=== PATIENT | female | born 2000 | race Caucasian/White ===

== ENCOUNTER 2023-01-02 08:37 | Outpatient (OUT) | payer BC, OTHER, SELFPAY ==
--- NOTE | 2023-01-02 08:46 | MR_ITS ---
[address] [address] Patient Name: DELFIN PÉREZ MRN: [id number] date: 2000 Sex: F Assigned Patient Location: MRI Current Patient Location: MRI Accession/Order Number: [id number] Exam Date: 01/02/2023 09:00 Report Date: 01/03/2023 08:19 At the request of: MARSHALL GOLD Procedure: MR pituitary wo/w con EXAM: MR pituitary wo/w con CLINICAL INDICATION: Elevated Prolactin Level R79.89 COMPARISON: None TECHNIQUE/PROTOCOL: Standard brain and pituitary pre and post contrast MRI performed. CONTRAST: 16 mL of Dotarem. FINDINGS: PITUITARY: Pituitary Gland: Normal in size. Parenchyma enhances slightly heterogenously without discrete mass. A normal pituitary bright spot is seen on the precontrast images. Infundibulum: Normal without deviation. Hypothalamus: Normal. Optic Chiasm: Normal. Mammillary Bodies: Normal. BRAIN: No restricted diffusion, extra-axial fluid collection, hydrocephalus, midline shift, or other mass effect. Intracranial flow voids are maintained. Normal midline structures. Normal marrow signal. No soft tissue abnormalities. Mild scattered paranasal sinus mucosal thickening. Mastoid air cells are well aerated. IMPRESSION: 1. Normal pituitary gland size. Pituitary parenchyma enhances slightly heterogenously without discrete mass. 2. No acute intracranial process. Electronically authenticated by: DESMOND JUDGE Date: 01/03/2023 08:19
== END 2023-01-02 08:38 ==
LOC: MRI 08:40
PROVIDERS: PCP Family Medicine; Visit Provider Obstetrics & Gynecology
DX: E22.1 Hyperprolactinemia (principal)
CPT/HCPCS: 70553; A9575

== ENCOUNTER 2023-01-30 20:24 | Outpatient (REF) | payer BC, OTHER, SELFPAY ==
[2023-02-06 21:07] LABS: Age Gdln ACOG Testing Note (.); HPV Aptima Negative (Negative); IGP, rfx Aptima HPV ASCU Note (.)
== END 2023-01-30 20:25 | disposition home or self-care (01) ==
LOC: LAB 20:24
PROVIDERS: PCP Family Medicine; Visit Provider Obstetrics & Gynecology
DX: Z12.4 Encounter for screening for malignant neoplasm of cervix (principal); Z11.51 Encounter for screening for human papillomavirus (HPV)
CPT/HCPCS: G0145

== ENCOUNTER 2024-05-21 19:48 | Outpatient (REF) | payer BC, OTHER, SELFPAY | END 2024-05-21 19:49 | disposition home or self-care (01) | LOC: LAB 19:48 | PROVIDERS: PCP Family Medicine; Visit Provider Family Medicine | DX: N94.89 Other specified conditions associated with female genital organs and menstrual cycle (principal); N90.7 Vulvar cyst | CPT/HCPCS: 87070; 87075 ==

== ENCOUNTER 2024-06-25 12:38 | Outpatient (OUT) | payer OTHER, SELFPAY | END 2024-06-25 12:39 | disposition home or self-care (01) | LOC: PST 12:38 | PROVIDERS: PCP Family Medicine; Visit Provider Obstetrics & Gynecology | DX: Z01.818 Encounter for other preprocedural examination (principal); N90.7 Vulvar cyst ==

== ENCOUNTER 2024-06-27 10:47 | Day surgery (SDC) | payer OTHER, SELFPAY ==
[2024-06-27] VITALS (10 sets, daily range): BP systolic 101–134; BP diastolic 52–80; PULSE 66–100; TEMP 36.2–36.4; O2SAT 94–100; BMI 24.0
--- NOTE | 2024-06-27 10:45 | XR_ITS ---
[address] [address] Patient Name: DELFIN PÉREZ MRN: [id number] date: 2000 Sex: F Assigned Patient Location: [facility] Current Patient Location: [facility] Accession/Order Number: [id number] Exam Date: 06/27/2024 11:00 Report Date: 06/27/2024 12:41 At the request of: MARSHALL GOLD Procedure: XR chest 1V PROCEDURE: XR chest 1V DATE: 06/27/2024 11:00 AM EST COMPARISONS: None. CLINICAL INDICATION: 23 years Female cough FINDINGS: The cardiomediastinal silhouette and pulmonary vasculature are within normal limits. The lungs are clear. There is no evidence of pleural effusion or pneumothorax. XR/XR chest 1V IMPRESSION: Chest radiograph is within normal limits. Electronically authenticated by: ARNULFO SAGASTUME Date: 06/27/2024 12:41
[2024-06-27 10:59] LABS: Basophils Percent Auto 0.6 % (0.2-2.0); Eosinophils Absolute Auto 0.1 10^3/uL (0.0-0.7); Eosinophils Percent Auto 1.8 % (0.9-7.0); Hematocrit 43.2 % (36.0-48.0); Immature Granulocytes Abs Auto 0.02 10^3/uL (0.00-0.03); Immature Granulocytes Pct Auto 0.4 % (0.0-0.5); Lymphocytes Absolute Auto 2.1 10^3/uL (1.2-3.8); Lymphocytes Percent Auto 40.3 % (20.5-60.0); Mean Corpuscular HGB Conc 34.7 g/dL (29.9-35.2); Mean Corpuscular Hemoglobin 29.8 pg (26.7-34.0); Mean Corpuscular Volume 85.9 fL (81.0-99.0); Mean Platelet Volume 8.5 fL (9.5-13.5); Monocytes Absolute Auto 0.5 10^3/uL (0.3-0.8); Monocytes Percent Auto 9.1 % (1.7-12.0); Neutrophils Absolute Auto 2.5 10^3/uL (1.4-6.5); Neutrophils Percent Auto 47.8 % (43.0-75.0); Platelet Count 239 10^3/uL (150-450); Red Blood Count 5.03 10^6/uL (4.20-5.40); Red Cell Distribution Width 11.9 % (11.0-15.0); White Blood Count 5.1 10^3/uL (4.0-11.0)
[2024-06-27 11:31] LABS: HCG Quantitative <1 mIU/mL
[2024-06-27] MEDS: LACTATED RINGER'S SOLUTION 1,000 ML 50 ML IV ×2 (12:00→14:14)
[2024-06-27] MEDS: SILVER SULFADIAZINE 1% CREAM 25 GM TUBE 1 APPLIC TOPICAL (14:53)
--- NOTE | 2024-06-27 14:53 | PM.ONB ---
Brief Operative Note Date of procedure: 06/27/24 Pre-op diagnosis general: lt labial cyst wall Post-op diagnosis: same as pre-op Procedure: pt was taken back to operating room, placed in dorsal lithotomy position, lt labial cyst was identified, a 3cm skin incision was made, the cyst wall was identified and was gently removed bluntly and with metzenbaum scissors, excellent hemostasis was performed, cyst wall removed in its entirity, the skin was then closed using 4-0 vicryl, please note andrew clamps were used for retraction, sponge lap and needle counts correct times 2, pt taken to recovery in stable condition Anesthesia: MAC Surgeon: Curry Orta Estimated blood loss (mL): 5 Pathology: other (cyst wall) Condition: stable Disposition: PACU Urinary Catheter Management Urinary Catheter Management Urethral: Cath placed during this visit: no
[2024-06-27] MEDS: HYDROMORPHONE HCL 0.5 MG/0.5 ML SYRINGE IV ×2 (15:19→15:27)
--- NOTE | 2024-06-27 15:34 | PC.NURSE ---
Sutures intact to left labia with silvadene cream; peripad in place
--- NOTE | 2024-06-27 15:49 | PC.NURSE ---
Teeth chattering; medicated for pain as ordered; no drainage from left labial incisional area
--- NOTE | 2024-06-27 15:54 | PC.NURSE ---
Medicated for surgical pain as ordered; peripad in place and dry
--- NOTE | 2024-06-27 15:59 | PC.NURSE ---
No drainage from labial surgical site
--- NOTE | 2024-06-27 16:06 | PC.NURSE ---
Peripad dry; no active drainage from left labial incisional site
--- NOTE | 2024-06-27 16:32 | PC.NURSE ---
No drainage from incisional site noted
--- NOTE | 2024-06-27 17:53 | PC.NURSE ---
Up to bathroom and voids clear yellow without difficulty
== END 2024-06-27 16:55 | disposition home or self-care (01) ==
PROVIDERS: PCP Family Medicine; Visit Provider Obstetrics & Gynecology
PROC: (CPT 940; principal; 2024-06-27 12:05)
DX: N90.7 Vulvar cyst (principal); F17.290 Nicotine dependence, other tobacco product, uncomplicated
CPT/HCPCS: 56405; 36415; 71045; 84702; 85025; 88304; J1100; J1171; J1885; J2250; J2405; J2704; J3010

== ENCOUNTER 2024-10-29 21:15 | Outpatient (REF) | payer OTHER, SELFPAY ==
--- OUTSIDE RECORDS SUMMARY | 2024-10-29 21:21 | XMS_ITS | CCD ---
Author Organization [facility] Care Team Providers Care Transfer Operator Name Role Phone Simba Durbin Unavailable Unavailable Zgrabik, Yoan D Unavailable Unavailable Zgrabik, Yoan D Unavailable Unavailable Zgrabik, Yoan D Unavailable Unavailable Zgrabik, Yoan D Unavailable Unavailable Simba Durbin Unavailable Unavailable SIMBA DURBIN Primary Care Physician Simba Durbin Unavailable Mahad Garcia Attending Unavailable Mahad Garcia Admitting Unavailable Nadir NARAYANAN Attending Unavailable YOU ., DR OLIVARES Admitting Unavailable DURBIN, DR SIMBA Roth Primary Care Unavailable YOU ., DR OLIVARES Attending Unavailable YOU ., DR OLIVARES Consulting Unavailable ZIEBER, DR NOLAN Pruitt Consulting Unavailable DURBIN, DR SIMBA Roth Consulting Unavailable HAY ., DR SANTOYO Admitting Unavailable OPOLIS, DR JANEEN Jarvis Consulting Unavailable DURBIN, DR SIMBA Roth Primary Care Unavailable HAY ., DR SANTOYO Attending Unavailable HAY ., DR SANTOYO Consulting Unavailable DURBIN, DR SIMBA Roth Primary Care Unavailable TIMMISuma, DR RIVAS Admitting Unavailable TIMMIS, DR RIVAS Attending Unavailable DURBIN, DR SIMBA Roth Primary Care Unavailable TIMMIS, DR RIVAS Attending Unavailable TIMMIS, DR RIVAS Consulting Unavailable TIMMIS, DR RIVAS Admitting Unavailable ADEFEYISTEVE LOUIS Consulting Unavailable MAGNOLIA SHEPHERD Consulting Unavailable JULIÁN WILKERSON Consulting Unavailable NOLAN PATTERSON Consulting Unavailable GIFTY, DR SIMBA Roth Primary Care Unavailable GIFTY, DR SIMBA Roth Admitting Unavailable GIFTY, DR SIMBA Roth Attending Unavailable DURBIN, DR SIMBA Roth Consulting Unavailable GIFTY, DR SIMBA Roth Primary Care Unavailable YOU ., DR OLIVARES Admitting Unavailable YOU ., DR OLIVARES Attending Unavailable YUO ., DR OLIVARES Consulting Unavailable DURBIN, DR SIMBA Roth Primary Care Unavailable DURBIN, DR SIMBA Roth Admitting Unavailable DURBIN, DR SIMBA E Attending Unavailable DR SIMBA DURBIN Consulting Unavailable Unavailable Primary Care Provider UnavailELLE Coker Attending Unavailable JANEEN ROWAN JR Referring Unavailable SIMBA DURBIN Primary Care Unavailable JANEEN ROWAN JR Attending Unavailable Simba Durbin MD Primary Care Provider [phone] Simba Durbin MD Primary Care Provider Simba Durbin Primary Care Unavailable YouCurry Attending Unavailable YouSallyy Admitting Unavailable MICHELLEVIKKI RUBIO Attending Unavailable YOU, CURRY Attending Unavailable MICHELLE VIKKI Attending Unavailable YOU, CURRY Attending Unavailable YOU, CURRY Attending Unavailable Allergies Allergy Classification Reported Allergen(s) Allergy Type Date of Onset Reaction(s) Facility (1 source) avocado oil Drug Allergy [facility] Repository (1 source) Banana Extract Drug Allergy [facility] Repository (1 source) resendez allergenic extract Drug Allergy [facility]ository (2 sources) pecan pollen extract Drug Allergy [facility] Repository (13 sources) Other Propensity to adverse reactions 4 [facility] Healthcare (13 sources) Pollen Propensity to adverse reactions 4 [facility] Healthcare Medications Current Medications Medication Drug Class(es) Dates Sig (Normalized) Sig (Original) cephalexin 500 mg oral capsule (2 sources) Cephalosporin Antibacterial Start: 08-29-2023 End: 09-12-2023 take 1 capsule by mouth in the morning, then take 1 capsule by mouth in the evening, then take 1 capsule by mouth at bedtime cephalexin (Keflex) 500 MG capsule Indications: Folliculitis Take 1 capsule (500 mg) by mouth in the morning and 1 capsule (500 mg) in the evening and 1 capsule (500 mg) before bedtime. Do all this for 14 days. 21 capsule 1 08/29/2023 09/12/2023 Active medroxyPROGESTERone (2 sources) Progestin Start: 12-31-2018 Depo Provera IntraMuscular, q3mo, Refills(s) 0 Start Date: 12/31/18 Status: Ordered Completed/Discontinued Medications Medication Drug Class(es) Dates Sig (Normalized) Sig (Original) 24 hr buPROPion hydrochloride 300 mg extended release oral tablet (5 sources) Aminoketone take 1 tablet by mouth every twenty-four hours buPROPion HCl ER (XL) 300 MG 1 tablet Orally Once a day for 90 days Not-Taking levocetirizine (6 sources) Histamine-1 Receptor Antagonist Start: 07-23-2022 levocetirizine dihydrochloride (XYZAL ORAL) Take 1 tablet by mouth PRN(NO DISPENSE). 0 07/23/2022 Active take 1 tablet by aire th every twenty-four hours Xyzal Allergy 24HR 5 MG 1 tablet in the evening Orally Once a day Active Comment on above: Take 1 tablet by arie th PRN(NO DISPENSE). metFORMIN hydrochloride 500 mg oral tablet (1 source) Biguanide Start: 3 take 1 tablet by mouth once daily metFORMIN (GLUCOPHAGE) 500 mg tablet Take 500 mg by mouth once daily. 0 01/15/2023 Active Comment on above: Take 500 mg by mouth once daily. omeprazole 40 mg delayed release oral capsule (5 sources) Proton Pump Inhibitor Omeprazole 40 MG TAKE 1 CAPSULE BY MOUTH EVERY DAY 30 MINUTES BEFORE MORNING MEAL FOR 30 DAYS for 30 Not-Taking Problems Active Problems Problem Classification Problem Date Documented Da te Episodic/Chronic Abdominal pain (8 sources) Unspecified abdominal pain; Translations: [Abdominal pain] Onset: 3 Episodic Acute and chronic tonsillitis (10 sources) Amygdalolith; Translations: [Other chronic diseases of tonsils and adenoids] Onset: 2 Chronic Allergic reactions (10 sources) Allergy to food; Translations: [Allergy to other foods] Episodic Anxiety disorders (9 sources) Anxiety; Translations: [Anxiety disorder, unspecified] Chronic Cancer of cervix (5 sources) Cervicovaginal cytology: Low grade squamous intraepithelial lesion; Translations: [Low grade squamous intraepithelial lesion on cytologic smear of cervix (LGSIL)] Episodic Esophageal disorders (10 sources) Gastroesophageal reflux disease without esophagitis; Translations: [Gastro-esophageal reflux disease without esophagitis] Onset: 3 Chronic Menstrual disorders (10 sources) Amenorrhea; Translations: [Amenorrhea, unspecified] Chronic Mood disorders (7 sources) Bipolar II disorder; Translations: [Bipolar II disorder] Onset: 2 02-05-2023 Chronic Other disorders of stomach and duodenum (2 sources) Disorder of function of stomach; Translations: [Disease of stomach and duodenum, unspecified] Episodic Other disorders of stomach and duodenum (1 source) Disease of stomach and duodenum, unspecified; Translations: [Dyspepsia and disorder of function of stomach] Onset: 3 Episodic Other endocrine disorders (5 sources) Polycystic ovaries; Translations: [Polycystic ovarian syndrome] Chronic Other endocrine disorders (4 sources) Polycystic ovarian syndrome; Translations: [POLYCYSTIC OVARIAN SYNDROME] Onset: 3 Chronic Other endocrine disorders (15 sources) Polycystic ovary syndrome; Translations: [Polycystic ovarian syndrome] Onset: 3 12-15-2022 Chronic Other female genital disorders (4 sources) Disorder of vulva; Translations: [Other specified conditions associated with female genital organs and menstrual cycle] 05-21-2024 Episodic Other female genital disorders (6 sources) Labial cyst; Translations: [Vulvar cyst] 05-21-2024 Episodic Other female genital disorders (2 sources) Cyst of vulva; Translations: [Vulvar cyst] 06-24-2024 Episodic Other gastrointestinal disorders (2 sources) Irritable bowel syndrome with diarrhea; Translations: [Irritable bowel syndrome with diarrhea] Chronic Other gastrointestinal disorders (1 source) Irritable bowel syndrome with diarrhea; Translations: [Irritable bowel syndrome with diarrhea] Onset: 3 Chronic Other gastrointestinal disorders (1 source) Irritable bowel syndrome; Translations: [Mixed irritable bowel syndrome] Chronic Other gastrointestinal disorders (1 source) Mixed irritable bowel syndrome Chronic Other gastrointestinal disorders (3 sources) Diarrhea; Translations: [Diarrhea, unspecified] Onset: 3 Episodic Other nutritional; endocrine; and metabolic disorders (5 sources) Body mass index 30+ - obesity; Translations: [Body mass index (BMI) 30.0-30.9, adult] Chronic Other nutritional; endocrine; and metabolic disorders (1 source) Body mass index (BMI) 30.0-30.9, adult Chronic Other nutritional; endocrine; and metabolic disorders (5 sources) Body mass index 25-29 - overweight; Translations: [Body mass index (BMI) 28.0-28.9, adult] Episodic Other skin disorders (5 sources) Disorder of skin and/or subcutaneous tissue; Translations: [Disorder of the skin and subcutaneous tissue, unspecified] Episodic Other skin disorders (2 sources) Folliculitis; Translations: [Follicular disorder, unspecified] 08-28-2023 Episodic Other upper respiratory disease (5 sources) Seasonal allergic rhinitis; Translations: [Other seasonal allergic rhinitis] Chronic Other upper respiratory infections (5 sources) Sinusitis; Translations: [Chronic sinusitis, unspecified] Chronic Residual codes; unclassified (5 sources) Tobacco user; Translations: [Tobacco use] Episodic Unclassified (1 source) PERSONAL HISTORY OF COVID-19; Translations: [PERSONAL HISTORY OF COVID-19] Onset: 2 Past or Other Problems Problem Classification Problem Date Documented Da te Episodic/Chronic Gastrointestinal hemorrhage (2 sources) Melena; Translations: [Melena] Onset: 08-28-2022 Episodic Inflammatory diseases of female pelvic organs (7 sources) Cyst of Bartholin's gland duct; Translations: [Cyst of Bartholin's gland] Onset: 07-28-2024 07-28-2024 Episodic Mood disorders (1 source) Mood disorders Other aftercare (7 sources) Surgical follow-up; Translations: [Encounter for follow-up examination after completed treatment for conditions other than malignant neoplasm] Onset: 07-28-2024 07-28-2024 Episodic Other gastrointestinal disorders (5 sources) Functional diarrhea; Translations: [FUNCTIONAL DIARRHEA] Onset: 08-24-2022 Episodic Results Test Name Value Interpretation Reference Range Facility ALL CBC WITH AUTO DIFFon BASOPHILS ABSOLUTE AUTO 0 [facility] Basophils/100 WBC (Bld) 0.6 % 0.2 - 2.0 % [facility] Eosinophils/100 WBC (Bld) 1.8 % 0.9 - 7.0 % [facility] Erythrocyte distribution width (RBC) [Ratio] 11.9 % 11.0 - 15.0 % [facility] Hematocrit (Bld) [Volume fraction] 43.2 % 36.0 - 48.0 % [facility] Hemoglobin (Bld) [Mass/Vol] 15 g/dL 12.0 - 16.0 g/dL [facility] IMMATURE GRANULOCYTES ABS AUTO 0.02 [facility] Immature granulocytes/100 WBC (Bld) 0.4 % 0.0 - 0.5 % [facility] Interpretation and review of laboratory results Abnormal [facility] LYMPHOCYTES ABSOLUTE AUTO 2.1 [facility] Lymphocytes/100 WBC (Bld) 40.3 % 20.5 - 60.0 % [facility] MCH (RBC) [Entitic mass] 29.8 pg 26.7 - 34.0 pg [facility] MCHC (RBC) [Mass/Vol] 34.7 g/dL 29.9 - 35.2 g/dL [facility] MCV (RBC) [Entitic vol] 85.9 fL 81.0 - 99.0 fL [facility] MONOCYTES ABSOLUTE AUTO 0.5 [facility] Monocytes/100 WBC (Bld) 9.1 % 1.7 - 12.0 % [facility] NEUTROPHILS ABSOLUTE AUTO 2.5 [facility] Neutrophils/100 WBC (Bld) 47.8 % 43.0 - 75.0 % [facility] Platelet mean volume (Bld) [Entitic vol] 8.5 fL Low 9.5 - 13.5 fL [facility] TBH EO # 0.1 [facility] [address] [facility] RBC 5.03 [facility] WBC 5.1 [facility] Jesu 06-27-2024 L Specimen: [id number] Received: 06/30/24 Status: REMA Jacobson Num: [id number] Spec Type: Surgical Subm Dr: Curry Orta Tissues: A Skin Cyst (LT LABIAL CYST WALL) Procedures: HE/2, Gross/Micro L3 Age/ Patient Sex Location Account Attending Physician Delfin Pérez 23/ LABELL [id number] Curry Orta SPEC NUM: [id number] RECD: 06/30/24 STATUS: DALEAaliyah ABBIE NUM: [id number] NISHA: 06/27/[address] [facility] [address]: Curry Orta ENTERED: 06/30/24 [facility] DR: MicheleLab SPEC TYPE: Surgical DEPT: BEATRICE DRAKE ENTERED BY: [id number] RECV BY: [id number] ORDERED: HE/2, Gross/Micro L3 ORDERED: HE/2, Gross/Micro L3 Pathological Diagnosis Labial cyst/vulvar cyst, excision: - Benign fibrous tissue with mucocele. - No evidence of dysplasia or malignancy identified. Clinical Information Labial cyst, vulvar cyst Gross Description Received in formalin labeled with the patients name, date of , and labial cyst/valvar cyst is a 0.9 grams, fragmented cystic structure, 2.4 x 2 x 0.5 cm in aggregate. The capsular surfaces are castillo-purple, smooth and glistening; the capsular surfaces are inked black. Serial sections reveal castillo-pink, smooth and glistening cyst linings. The cyst wall ranges from 0.1 to 0.5 cm in thickness. The specimen is entirely submitted in cassette A1?A2. (2, ns, [id number]) Microscopic Description Microscopic examination is performed. Specimen: [id number] Received: 06/30/24 Status: REMA Jacobson Num: [id number] Spec Type: Surgical Subm Dr: Curry Orta Tissues: A Skin Cyst (LT LABIAL CYST WALL) Procedures: HE/2, Gross/Micro L3 Patient: Delfin Pérez [id number] (Continued) Specimen: [id number] Received: 06/30/24 (Continued) Signed (signature on file) Samy Williamson MD 07/01/24 1130 Specimen: [id number] Received: 06/30/24 Status: REMA Jacobson Num: [id number] Spec Type: Surgical Subm Dr: Curry Orta Tissues: A Skin Cyst (LT LABIAL CYST WALL) Procedures: HE/2, Gross/Micro L3 Patient: Delfin Pérez [id number] (Continued) Specimen: [id number] Received: 06/30/24 (Continued) CPT Codes 48379 Specimen: [id number] Received: 06/30/24 Status: REMA Jacobson Num: [id number] Spec Type: Surgical Subm : Curry Rosen: A Skin Cyst (LT LABIAL CYST WALL) Procedures: HE/2, Gross/Micro L3 Patient: Delfin Pérez [id number] (Continued) Signed (signature on file) Jed Williamson MD 07/01/24 1130 [facility] SURGICAL PATHOLOGYon 023 Case Report Surgical Pathology R [facility] Case: [id number] Authorizing Provider: Janeen Rowan Jr., Collected: 02/05/2023 09:12 AM Ordering Location: Ambulatory Surgery Received: 02/05/2023 11:52 AM Pathologist: Yoan Barragan MD Specimens: A) - DUODENUM BIOPSY, r/o celiac B) - ANTRUM (STOMACH) BIOPSY, r/o h pylori C) - COLON BIOPSY, random colon bx, r/o microscopic colitis [facility] FINAL DIAGNOSIS A. Duodenum, biopsy: -Small intestinal mucosa with no diagnostic alteration -No evidence of celiac disease B. Antrum, biopsy: -Antral mucosa with no diagnostic alteration -No morphologic evidence of Helicobacter pylori C. Random colon, biopsy: -Colonic mucosa with no diagnostic alteration -No evidence of microscopic colitis [facility] Gross Description A. DUODENUM BIOPSY Received in formalin are two pieces of dejesus, soft tissue aggregating to 0.9 x 0.2 x 0.2 cm. Totally submitted in one cassette. B. ANTRUM (STOMACH) BIOPSY Received in formalin is one piece of dejesus, soft tissue measuring 0.5 x 0.2 x 0.2 cm. Totally submitted in one cassette. C. COLON BIOPSY Received in formalin are two pieces of dejesus, soft tissue aggregating to 0.5 x 0.2 x 0.2 cm. Totally submitted in one cassette. Gross examination performed at [facility], [address] [place], [place] [id number] KK February 05, 2023 8:16 PM [facility] Performing Lab Diagnostic interpret ation performed at [facility], [address] [place] [address] CLIA# [id number] Scratcher: Kenji Davis M.D. [facility] ANES POSTPROC EVALon 023 ANES POSTPROC EVAL HNO ID: [id number] Author: Alexei Card MD Service: Anesthesiology Author Type: Physician Type: Anesthesia Postprocedure Evaluation Filed: 02/05/2023 10:25 AM Note Text: POST ANESTHESIA EVALUATION NOTE : 2000 Procedure Summary Date: 02/05/23 Room / Location: Ambulatory Surgery Anesthesia Start: 904 Anesthesia Stop: 931 Procedures: EGD DIAGNOSTIC COLONOSCOPY DIAGNOSTIC Diagnosis: Dyspepsia and disorder of function of stomach Gastroesophageal reflux disease, unspecified whether esophagitis present Irritable bowel syndrome with diarrhea Generalized abdominal pain (Epigastric abdominal pain) (Generalized abdominal pain) Scheduled Providers: Janeen Rowan Jr., DO; Alexei Card MD; Elle Falcon APRN.YARD FOREMAN Responsible Provider: Alexei Card MD Anesthesia Type: MAC ASA Status: 2 Anesthesia Type: MAC Last Vitals Vitals Value Taken Time BP 122/69 02/05/23 1004 Temp 36.6 ?C (97.8 ?F) 02/05/23 0933 HR SpO2 87 02/05/23 1004 Resp 16 02/05/23 1004 SpO2 99 % 02/05/23 1004 Post Anesthesia Patient Status Patient Evaluation: PACU. PACU/ICU Patient Condition: stable. Anticipated Disposition: phase 2 then home. Neurological Status: aware and responsive. Pulmonary Status: breathing comfortably on room air Airway Control: returned to baseline unsupported. Cardiovascular Status: stable. Pain Management: satisfactory to patient Postoperative Hydration: acceptable. Intraoperative Events: no significant anesthesia events Recommendation: continue current plan of care. Anesthesia Observations No Documentation SIGNATURE: Alexei Card MD PATIENT NAME: Delfin Pérez DATE: February 05, 2023 TIME: 10:25 AM CSN: [id number] Normal [facility] ANES PRE-OPon 02-05-2023 ANES PRE-OP HNO ID: [id number] Author: Alexei Card MD Service: Anesthesiology Author Type: Physician Type: Anesthesia Preprocedure Evaluation Filed: 02/05/2023 8:22 AM Note Text: ANESTHESIOLOGY DAY OF SURGERY NOTE : 2000 Procedure Information Date/Time: 02/05/23 0915 Scheduled providers: Janeen Rowan Jr., DO; Alexei Card MD; Elle Falcon APRN.YARD FOREMAN Procedures: EGD DIAGNOSTIC COLONOSCOPY DIAGNOSTIC Location: Ambulatory Surgery Estimated body mass index is 29.18 kg/m? as calculated from the following: Height as of 12/22/22: 162.6 cm (5' 4 ). Weight as of 12/22/22: 77.1 kg (170 lb). Most recent hematocrit and potassium results: No results found for this basename: HCT,HEMATOCRIT,K,POTASSIUM Relevant Problems GI (+) Gastroesophageal reflux disease without esophagitis I - PHYSICAL EVALUATION AIRWAY Patient intubated: No. Tracheostomy tube not present Mallampati: II. TM distance: >3 FB. Neck ROM: full. Mouth opening: adequate. Short neck: no. Thick neck: no Gamble present: no DENTAL Normal dental observations. Dental findings: teeth intact. Additional exam findings: no II - ANESTHESIA PLAN ASA Score: 2 Anesthetic Plan: MAC NPO Status: adequate Beta Areli Monitoring Plan Monitoring plan: Standard ASA. Post Procedure Analgesic Plan Postoperative analgesic plan: parenteral or oral opioids. Informed Consent Anesthetic risks, benefits, alternatives, personnel and consent discussed: yes. Patient / Responsible Libertarian agrees to proceed: yes Patient / Surrogate agrees to blood products: blood products not planned Significant changes in the patient condition since the History and Physical, not otherwise documented in primary service progress note: no. Potential Anesthesia issues that may suggest increased risk of complications or contraindication to planned procedure: none. No vitals data found for the desired time range. Outpatient Medications as of 02/05/2023 Medication Sig - metFORMIN (GLUCOPHAGE) 500 mg tablet Take 500 mg by mouth once daily. - levocetirizine dihydrochloride (XYZAL ORAL) Take 1 tablet by mouth PRN(NO DISPENSE). Facility-Administered Medications as of 02/05/2023 Medication Dose Route Frequency - NaCl 0.9% iv infusion 50 mL/hr INTRAVENOUS CONTINUOUS I have interviewed and examined the patient. I have reviewed the medical record and/or the pre-anesthesia evaluation, pertinent labs, and test results. This contains updated information obtained within 48 hours of Surgery/Procedure. SIGNATURE: Alexei Card MD PATIENT NAME: Delfin Pérez DATE: February 05, 2023 TIME: 8:21 AM CSN: [id number] Normal [facility] COLONOSCOPY DIAGNOSTICon [facility] Colonoscopyon 02-05-2023 Colonoscopy [place] [facility] Gastrointestinal Endoscopy Patient Name: Delfin Pérez Procedure Date: 02/05/2023 9:17 AM Date of : 2000 Admit Type: Outpatient Age: 22 Gender: Female Note Status: Finalized Procedure: Colonoscopy Indications: Generalized abdominal pain, Diarrhea, Suspected irritable bowel syndrome Providers: Janeen Rowan Jr, DO Patient Profile: This is a 22 year old female. Refer to note in patient chart for documentation of history and physical. Last Colonoscopy: none. The patient's first colonoscopy is today. Patient has symptoms of acute global abdominal pain and acute diarrhea. Referring Physician: Janeen Rowan Jr, DO (Referring MD) Medicines: Propofol per Anesthesia, Monitored Anesthesia Care Complications: No immediate complications. Requesting Provider: Procedure: Pre-Anesthesia Assessment: - Prior to the procedure, a History and Physical was performed, and patient medications and allergies were reviewed. The patient's tolerance of previous anesthesia was also reviewed. The risks and benefits of the procedure and the sedation options and risks were discussed with the patient. All questions were answered, and informed consent was obtained. Prior Anticoagulants: The patient has taken no anticoagulant or antiplatelet agents. ASA Grade Assessment: II - A patient with mild systemic disease. After reviewing the risks and benefits, the patient was deemed in satisfactory condition to undergo the procedure. After I obtained informed consent, the scope was passed under direct vision. Throughout the procedure, the patient's blood pressure, pulse, and oxygen saturations were monitored continuously. The Colonoscope was introduced through the anus and advanced to the terminal ileum, with identification of the appendiceal orifice and IC valve. The colonoscopy was performed without difficulty. The patient tolerated the procedure well. The quality of the bowel preparation was excellent. The entire colon was well visualized. The terminal ileum, ileocecal valve, appendiceal orifice, and rectum were photographed. Moderate Sedation: MAC anesthesia was administered by the anesthesia team. Findings: The digital rectal exam was normal. The terminal ileum appeared normal. The entire examined colon appeared normal on direct and retroflexion views. Biopsies for histology were taken with a cold forceps from the sigmoid colon for evaluation of microscopic colitis. Impression: - The examined portion of the ileum was normal. - The entire examined colon is normal on direct and retroflexion views. - Random colon biopsies obtained to rule out microscopic colitis. Recommendation: - Discharge patient to home. - Resume regular diet. - Continue present medications. - Await pathology results. - Repeat colonoscopy age 44 for screening purposes. - Patient has a contact number available for emergencies. The signs and symptoms of potential delayed complications were discussed with the patient. Return to normal activities tomorrow. Written discharge instructions were provided to the patient. Procedure Code(s): --- Professional --- 13619, Colonoscopy, flexible; with biopsy, single or multiple Diagnosis Code(s): --- Professional --- R10.84, Generalized abdominal pain R19.7, Diarrhea, unspecified CPT copyright 2020 [employer]. All rights reserved. The codes documented in this report are preliminary and upon multimedia services coordinator review may be revised to meet current compliance requirements. Attending Participation: I personally performed the entire procedure. Scope In: 9:19:02 AM Scope Out: 9:28:38 AM MD Janeen Laws Jr, 02/05/2023 9:32:53 AM This report has been signed electronically by Janeen Rowan Jr, DO Number of Addenda: 0 Note Initiated On: 02/05/2023 9:17 AM Estimated Blood Loss: Estimated blood loss: none. Normal [facility] EGD DIAGNOSTICon 02-05-2023 [facility] HISTORY PHYSICALon HISTORY PHYSICAL HNO ID: [id number] Author: Janeen Rowan Jr., DO Service: Gastroenterology Author Type: Physician Type: HANDP Filed: 02/05/2023 9:03 AM Note Text: HISTORY AND PHYSICAL EXAMINATION SERVICE DATE: 02/05/2023 SERVICE TIME: 9:02 AM Chief Complaint: GERD, nausea, diarrhea, abd pain HPI:This is a 22 year old female who presents with diarrhea, GERD and bloating. Symptoms for the past 2 yrs. Diarrhea is typically several times in the morning. Reports diarrhea floats, occasionally oily appearance. Denies blood and mucous. Diarrhea does not tend to awaken her from sleep. Abd bloating and generalized abd cramping associated. She also has intermittent GERD and occasional vomiting episodes. She has not tried any specific medications. Never had an EGD or colonoscopy before. Negative family history. Celiac serology and allergy testing were negative. PAST MEDICAL HISTORY Diagnosis Date Anxiety Bipolar 2 disorder (HCC) GERD (gastroesophageal reflux disease) History of PCOS PAST SURGICAL HISTORY Procedure Laterality Date TONSILLECTOMY HX No family history on file. (Not in a hospital admission) ALLERGIES No Known Allergies COMPLETE REVIEW OF SYSTEMS: GENERAL: No weight loss, malaise or fevers RESPIRATORY: Negative for cough, hemoptysis, wheezing, COPD, dyspnea or shortness of breath CARDIOVASCULAR: Negative for chest pain, leg swelling, hypertension, CHF or palpitations GI: Positive for abdominal discomfort , diarrhea , nausea BP 120/61 Pulse 98 Temp 98.6 Resp 16 SpO2 99% LMP 02/04/2023 O2 Therapy: Room Air PHYSICAL EXAM: Physical Exam Performed: GENERAL: Alert, no distress, cooperative LUNGS: Lungs clear to auscultation, Good diaphragmatic excursion CARDIAC: Normal S1 and S2; no rubs, murmurs, or gallops ABDOMEN: Abdomen soft, non-tender, BS normal, No masses or organomegaly EXTREMITIES: Extremities normal, no deformities, edema, clubbing or skin discoloration. Good capillary refill., No ulcers (K31.9, R10.13) Dyspepsia and disorder of function of stomach Plan: EGD DIAGNOSTIC, EGD DIAGNOSTIC (K21.9) Gastroesophageal reflux disease, unspecified whether esophagitis present Plan: EGD DIAGNOSTIC, EGD DIAGNOSTIC (K58.0) Irritable bowel syndrome with diarrhea Plan: COLONOSCOPY DIAGNOSTIC, COLONOSCOPY DIAGNOSTIC (R10.84) Generalized abdominal pain Plan: COLONOSCOPY DIAGNOSTIC, COLONOSCOPY DIAGNOSTIC (R19.7) Diarrhea, unspecified type SIGNATURE: Janeen Rowan Jr., PATIENT NAME: Delfin Pérez DATE: February 05, 2023 TIME: 9:02 AM PAGER/CONTACT #: Normal [facility] NURSING PROGon 02-05-2023 NURSING PROG HNO ID: [id number] Author: Lilliana Luke RN Service: ? Author Type: Registered Nurse Type: Nursing Progress Note Filed: 02/05/2023 9:53 AM Note Text: POST OP LEARNING RESPONSE INSTRUCTION PROVIDED TO: Patient and Mother METHOD OF INSTRUCTION: Written instruction - handouts Verbal instruction PATIENT / FAMILY RESPONSE: Verbalizes understanding of: INFECTION MANAGEMENT-Signs and symptoms of an infection and importance of contacting the physician POST-PROCEDURE INSTRUCTIONS-Correct actions to take to reduce post procedure complications WORSENING CONDITION-Signs and symptoms of a worsening condition that warrant a call to the physician FOLLOW-UP PLAN: Patient instructed to call with any further issues SUPPLEMENTAL MATERIAL: Post sedation instructions given Procedure discharge instructions REFERRAL (RECOMMENDATION): None Electronically Signed By: Lilliana Luke RN In Department: AMBULATORY SURGERY Normal [facility] SURGICAL PATHOLOGYon 023 CASE REPORT Normal [facility] Comment on above: Order Comment: Speci men Type: TISSUE SPECIMEN Ordering Facility: [facility] Address: [address] [place], [place] [id number] Result Comment: Surg ical Pathology Report Case: [id number] Authorizing Provider: Janeen Rowan Jr., Collected: 02/05/2023 09:12 AM Ordering Location: Ambulatory Surgery Received: 02/05/2023 11:52 AM Pathologist: Yoan Barragan MD Specimens: A) - DUODENUM BIOPSY, r/o celiac B) - ANTRUM (STOMACH) BIOPSY, r/o h pylori C) - COLON BIOPSY, random colon bx, r/o microscopic colitis Performed By: #### S #### [facility] CLIA [id number] [address] [place] [address] OF [facility] FINAL DIAGNOSIS Normal [facility] Comment on above: Order Comment: Speci men Type: TISSUE SPECIMEN Ordering Facility: [facility] Address: [address] [place], [place] [id number] Result Comment: Silvia vaughn, biopsy: -Small intestinal mucosa with no diagnostic alteration -No evidence of celiac disease B. Antrum, biopsy: -Antral mucosa with no diagnostic alteration -No morphologic evidence of Helicobacter pylori C. Random colon, biopsy: -Colonic mucosa with no diagnostic alteration -No evidence of microscopic colitis Performed By: #### S #### [facility] CLIA [id number] [address] [place] [address] FINAL PERFORMING LAB Normal [facility] Comment on above: Order Comment: Speci men Type: TISSUE SPECIMEN Ordering Facility: [facility] Address: [address] [place] [address] Result Comment: Diag nostic interpretation performed at [place] [address] CLIA# [id number] Scratcher: Kenji Davis M.D. Performed By: #### S #### [facility] CLIA [id number] [address] [place] [address] GROSS DESCRIPTION Normal [facility] Comment on above: Order Comment: Speci men Type: TISSUE SPECIMEN Ordering Facility: [facility] Address: [address] [place] [address] Result Comment: A. D UODENUM BIOPSY Received in formalin are two pieces of dejesus, soft tissue aggregating to 0.9 x 0.2 x 0.2 cm. Totally submitted in one cassette. B. ANTRUM (STOMACH) BIOPSY Received in formalin is one piece of dejesus, soft tissue measuring 0.5 x 0.2 x 0.2 cm. Totally submitted in one cassette. C. COLON BIOPSY Received in formalin are two pieces of dejesus, soft tissue aggregating to 0.5 x 0.2 x 0.2 cm. Totally submitted in one cassette. Gross examination performed at [facility], [address] [place] [address] February 05, 2023 8:16 PM Performed By: #### S #### [facility] CLIA [id number] [address] [place] [address] OF TOM Upper GI endoscopyon 02-05-2 023 Upper GI endoscopy Marcelo [facility] Gastrointestinal Endoscopy Patient Name: Delfin Pérez Procedure Date: 02/05/2023 8:56 AM Date of : 2000 Admit Type: Outpatient Age: 22 Gender: Female Note Status: Finalized Procedure: Upper GI endoscopy Indications: Epigastric abdominal pain, Dyspepsia, Heartburn, Suspected esophageal reflux Providers: Janeen Rowan Jr, DO Patient Profile: This is a 22 year old female. Refer to note in patient chart for documentation of history and physical. Patient has symptoms of acute dyspepsia and acute nausea. Referring Physician: Janeen Rowan Jr, DO (Referring MD) Medicines: Propofol per Anesthesia, Monitored Anesthesia Care Complications: No immediate complications. Requesting Provider: Procedure: Pre-Anesthesia Assessment: - Prior to the procedure, a History and Physical was performed, and patient medications and allergies were reviewed. The patient's tolerance of previous anesthesia was also reviewed. The risks and benefits of the procedure and the sedation options and risks were discussed with the patient. All questions were answered, and informed consent was obtained. Prior Anticoagulants: The patient has taken no anticoagulant or antiplatelet agents. ASA Grade Assessment: II - A patient with mild systemic disease. After reviewing the risks and benefits, the patient was deemed in satisfactory condition to undergo the procedure. After obtaining informed consent, the endoscope was passed under direct vision. Throughout the procedure, the patient's blood pressure, pulse, and oxygen saturations were monitored continuously. The Endoscope was introduced through the mouth, and advanced to the second part of duodenum. The upper GI endoscopy was accomplished without difficulty. The patient tolerated the procedure well. Moderate Sedation: MAC anesthesia was administered by the anesthesia team. Findings: The examined esophagus was normal. The Z-line was regular and was found 39 cm from the incisors. The entire examined stomach was normal. Biopsies were taken with a cold forceps for Helicobacter pylori testing. The cardia and gastric fundus were normal on retroflexion. The examined duodenum was normal. Biopsies for histology were taken with a cold forceps for evaluation of celiac disease. Impression: - Normal esophagus. - Normal stomach. Biopsied, rule out h.pylori. - Normal examined duodenum. Biopsied, rule out celiac sprue. Recommendation: - Await pathology results. - Discharge patient to home. - Resume regular diet. - Continue present medications. Procedure Code(s): --- Professional --- 32896, Esophagogastroduodenoscopy, flexible, transoral; with biopsy, single or multiple Diagnosis Code(s): --- Professional --- R10.13, Epigastric pain R12, Heartburn CPT copyright 2020 [employer]. All rights reserved. The codes documented in this report are preliminary and upon multimedia services coordinator review may be revised to meet current compliance requirements. Attending Participation: I personally performed the entire procedure. Scope In: 9:10:45 AM Scope Out: 9:15:08 AM MD Janeen Laws Jr, DO 02/05/2023 9:17:52 AM This report has been signed electronically by Janeen Rowan Jr, DO Number of Addenda: 0 Note Initiated On: 02/05/2023 8:56 AM Estimated Blood Loss: Estimated blood loss: none. Normal [facility] Cytology Cervical or vaginal smear or scraping studyon 01-30-2023 [facility] NURSING PROGon 01-30-2023 NURSING PROG HNO ID: [id number] Author: Melanie Mcdowell, RN Service: ? Author Type: Registered Nurse Type: Nursing Progress Note Filed: 01/30/2023 10:45 AM Note Text: Patient uses marijuana and asking how long to hold prior to procedure. Per PACC, hold x7 days prior. Patient verbalized understanding. Normal [facility] CNOVon 12-22-2022 CNOV Office Visit ([facility] ) DELFIN PÉREZ ([id number]) 89 F Date Time Provider Department 12/22/22 8:30 AM [facility] During your visit today, we recorded the following information about you: Pulse Blood pressure Weight Height 62/minute 90/59 77.1 kg 1.626 m Last Period 12/08/22 Janeen Rowan Jr., DO 12/22/2022 8:55 AM Signed Patient presents with: Bloating Diarrhea HPI: Delfin Pérez, 22 year old female, presents in the office today for diarrhea, GERD and bloating. Symptoms for the past 2 yrs. Diarrhea is typically several times in the morning. Reports diarrhea floats, occasionally oily appearance. Denies blood and mucous. Diarrhea does not tend to awaken her from sleep. Abd bloating and generalized abd cramping associated. She also has intermittent GERD and occasional vomiting episodes. She has not tried any specific medications. Never had an EGD or colonoscopy before. Negative family history. Celiac serology and allergy testing were negative. Past GI workup 08-24-2022 CT ABD/PELVIS WO CON was done for UNSPECIFIED ABDOMINAL PAIN , hematochezia 2.7 cm hypodensity lower third of the left vagina/labia majora. I favor a Bartholin gland cyst, clinically correlate No CT explanation for the patient's hematochezia Last labs as follows: Component Ref Range AND Units 2 d ago [facility] WBC 4.0 - 11.0 103/ul 7.2 [facility] RBC 4.20 - 5.40 106/ul 4.90 [facility] HGB 12.0 - 16.0 g/dl 14.4 TB[facility] HCT 36.0 - 48.0 % 42.2 [facility] MCV 81.0 - 99.0 fL 86.1 TBH MCH 26.7 - 34.0 pg 29.4 TBH MCHC 29.9 - 35.2 g/dl 34.1 TBH RDW 11.0 - 15.0 % 12.0 TB[facility] PLT 150 - 450 103/ul 262 [facility] MPV 9.5 - 13.5 fL 8.6 Low Panic TBH NEUT % 43.0 - 75.0 % 54.4 TBH LYMPH % 20.5 - 60.0 % 33.2 TBH MONO % 1.7 - 12.0 % 8.5 TBH EO % 0.9 - 7.0 % 2.8 TBH BASO % 0.2 - 2.0 % 0.7 TBH IG % 0.0 - 0.5 % 0.4 TBH NEUT # 1.4 - 6.5 103/ul 3.9 TBH LYMPH # 1.2 - 3.8 103/ul 2.4 TBH MONO # 0.3 - 0.8 103/ul 0.6 TBH EO # 0.0 - 0.7 103/ul 0.2 TBH BASO # 0.0 - 0.1 103/ul 0.1 TBH IG # 0.00 - 0.03 10e3/ul 0.03 CELIAC ANTIBODIES PROFILE on 08-25-2022 Deamidated Gliadin Abs, IgA 4 units Normal 0-19 [facility] Comment on above: Result Comment: Negative 0 - 19 Weak Positive 20 - 30 Moderate to Strong Positive >30 Deamidated Gliadin Abs, IgG 3 units Endomysial Antibody IgA Negative Immunoglobulin A, Qn, Serum 79 mg/dL t-Transglutaminase (tTG) IgA <2 t-Transglutaminase (tTG) IgG <2 BILIRUBIN CONJUGATED (DIRECT) on 08-24-2022 BILI, CONJUGATED 0.2 mg/dL PAST MEDICAL HISTORY Diagnosis Date Anxiety Bipolar 2 disorder (HCC) GERD (gastroesophageal reflux disease) History of PCOS PAST SURGICAL HISTORY Procedure Laterality Date TONSILLECTOMY HX No current outpatient medications on file prior to visit. No current facility-administered medications on file prior to visit. Allergies: No Known Allergies Review of Systems Constitutional: Negative for chills, fatigue and fever. HENT: Negative for hearing loss, nosebleeds, tinnitus and trouble swallowing. Eyes: Negative for visual disturbance. Respiratory: Negative for cough, shortness of breath and wheezing. Cardiovascular: Negative for chest pain and palpitations. Gastrointestinal: Positive for abdominal pain, diarrhea, nausea and vomiting. Negative for abdominal distention, blood in stool and constipation. Endocrine: Negative for polyphagia. Genitourinary: Negative for dysuria, frequency and hematuria. Musculoskeletal: Negative for arthralgias and joint swelling. Skin: Negative for pallor and rash. Neurological: Negative for dizziness, tremors, seizures, syncope and headaches. Hematological: Does not bruise/bleed easily. BP 90/59 Pulse 62 Ht 162.6 cm (5' 4 ) Wt 77.1 kg (170 lb) LMP 12/08/2022 SpO2 99% BMI 29.18 kg/m? Physical Exam Constitutional: General: She is not in acute distress. HENT: Mouth/Throat: Pharynx: Oropharynx is clear. Eyes: Conjunctiva/sclera: Conjunctivae normal. Cardiovascular: Rate and Rhythm: Normal rate and regular rhythm. Pulmonary: Effort: Pulmonary effort is normal. Breath sounds: Normal breath sounds. Abdominal: General: Bowel sounds are normal. There is no distension. Palpations: Abdomen is soft. Tenderness: There is no abdominal tenderness. There is no guarding or rebound. Hernia: No hernia is present. Musculoskeletal: General: No swelling. Skin: General: Skin is warm and dry. Coloration: Skin is not jaundiced. Neurological: Mental Status: She is alert. Mental status is at baseline. ASSESSMENT/PLAN: 22 y/o female with N/V, indigestion, diarrhea, and abd pain. Symptoms most likely related to GERD and IBS. However, description of symptoms also suggest possibility of exocrine pancreatic insufficiency and less likely colitis. She is reluctant to start (more content not included)... Normal [facility] DHEA-SULFATEon 12-20-2022 DHEA-Sulfate 270.0 ug/dL Normal 110.0-431. 7 [facility] Comment on above: Performed By: #### C BC #### [facility] [address] [place] [address] Dr. Maryuri Hogue FSHon 12-20-2022 FSH 3.7 mIU/mL Normal [facility] Comment on above: Result Comment: Adul t Female: Follicular phase 3.5 - 12.5 Ovulation phase 4.7 - 21.5 Luteal phase 1.7 - 7.7 Postmenopausal 25.8 - 134.8 Performed By: #### C BC #### [facility] [address] [place] [address] Dr. Maryuri Hogue LUTEINIZING HORMONE (LH)on 12-20-2022 LH 10.6 mIU/mL Normal [facility] Comment on above: Result Comment: Adul t Female: Follicular phase 2.4 - 12.6 Ovulation phase 14.0 - 95.6 Luteal phase 1.0 - 11.4 Postmenopausal 7.7 - 58.5 Performed By: #### L BCLH #### [facility] [address] [place] [address] Dr. Maryuri Hogue PROLACTINon 12-20-2022 Prolactin 24.8 ng/mL Critically high 4.8-23.3 [facility] Comment on above: Performed By: #### L BCLH #### [facility] [address] [place] [address] Dr. Maryuri Hogue US PELVIS AND TRANSVAGon US PELVIS AND TRANSVAG EXAMINATION: US PELVIS AND TRANSVAG HISTORY: Polycystic ovary syndrome COMPARISON: No relevant comparison available. TECHNIQUE: Transabdominal and transvaginal sonographic examination. FINDINGS: UTERUS: Normal size and appearance. Uterus size: 7.4 x 2.9 x 4.1 cm ENDOMETRIUM: Normal homogeneous appearance. Endometrial thickness: 5 mm RIGHT OVARY: Contains several follicles of variable size. Duplex Doppler demonstrates normal waveform and flow; resistive index 0.6. Ovary size: 3.2 x 1.7 x 2.9 cm LEFT OVARY: Contains several follicles of variable size. Duplex Doppler demonstrates normal waveform and flow; resistive index 0.6. Ovary size: 2.3 x 1.5 x 2.6 cm CUL-DE-SAC: Unremarkable. No significant free fluid. BLADDER: Unremarkable. OTHER: None. IMPRESSION: 1. Normal pelvic ultrasound. 2. Normal appearance of ovaries. No ultrasound findings at this time to suggest polycystic ovarian syndrome. Electronically authenticated by: NOLAN ARTEAGA Date: 2022-12-20 07:30 Normal [facility] CBC AUTO DIFFon 12-19-2022 BASO # 0.1 103/ul Normal 0.0-0.1 [facility] Comment on above: Performed By: #### C BC #### [facility] [address] [place] [address] Dr. Maryuri Hogue Basophils/100 WBC (Bld) 0.7 % Normal 0.2-2.0 [facility] Comment on above: Performed By: #### C BC #### [facility] [address] [place] [address] Dr. Maryuri Hogue EO # 0.2 103/ul Normal 0.0-0.7 [facility] Comment on above: Performed By: #### C BC #### [facility] [address] [place] [address] Dr. Maryuri Hogue Eosinophils/100 WBC (Bld) 2.8 % Normal 0.9-7.0 [facility] Comment on above: Performed By: #### C BC #### [facility] [address] [place] [address] Dr. Maryuri Hogue Erythrocyte distribution width (RBC) [Ratio] 12.0 % Normal 11.0-15.0 [facility] Comment on above: Performed By: #### C BC #### [facility] [address] [place] [address] Dr. Maryuri Hogue Hematocrit (Bld) [Volume fraction] 42.2 % Normal 36.0-48.0 [facility] Comment on above: Performed By: #### C BC #### [facility] [address] [place] [address] Dr. Maryuri Hogue Hemoglobin (Bld) [Mass/Vol] 14.4 g/dL Normal 12.0-16.0 [facility] Comment on above: Performed By: #### C BC #### [facility] [address] [place] [address] Dr. Maryuri Hogue IG # 0.03 10e3/ul Normal 0.00-0.03 [facility] Comment on above: Performed By: #### C BC #### [facility] [address] [place] [address] Dr. Maryuri Hogue IG % 0.4 % Normal 0.0-0.5 [facility] Comment on above: Performed By: #### C BC #### [facility] [address] [place] [address] Dr. Maryuri Hogue LYMPH # 2.4 103/ul Normal 1.2-3.8 [facility] Comment on above: Performed By: #### C BC #### [facility] [address] [place] [address] Dr. Maryuri Hogue Lymphocytes/100 WBC (Bld) 33.2 % Normal 20.5-60.0 [facility] Comment on above: Performed By: #### C BC #### [facility] [address] [place] [address] Dr. Maryuri Hogue MANUAL DIFF REQ NO Normal [facility] Comment on above: Performed By: #### C BC #### [facility] [address] [place] [address] Dr. Maryuri Hogue MCH (RBC) [Entitic mass] 29.4 pg Normal 26.7-34.0 [facility] Comment on above: Performed By: #### C BC #### [facility] [address] [place] [address] [address] Maryuri Hogue MCHC (RBC) [Mass/Vol] 34.1 g/dL Normal 29.9-35.2 [facility] Comment on above: Performed By: #### C BC #### [facility] [address] [place] [address] [address] Maryuri Hogue MCV (RBC) [Entitic vol] 86.1 fL Normal 81.0-99.0 [facility] Comment on above: Performed By: #### C BC #### [facility] [address] [place] [address] Dr. Maryuri Hogue MONO # 0.6 103/ul Normal 0.3-0.8 [facility] Comment on above: Performed By: #### C BC #### [facility] [address] [place] [address] Dr. Maryuri Hogue Monocytes/100 WBC (Bld) 8.5 % Normal 1.7-12.0 [facility] Comment on above: Performed By: #### C BC #### [facility] [address] [place] [address] Dr. Maryuri Hogue NEUT # 3.9 103/ul Normal 1.4-6.5 [facility] Comment on above: Performed By: #### C BC #### [facility] [address] [place] [address] [address] Maryuri Hogue Neutrophils/100 WBC (Bld) 54.4 % Normal 43.0-75.0 [facility] Comment on above: Performed By: #### C BC #### [facility] [address] [place] [address] [address] Maryuri Hogue Platelet mean volume (Bld) [Entitic vol] 8.6 fL Critically low 9.5-13.5 [facility] Comment on above: Performed By: #### C BC #### [facility] [address] [place] [address] Dr. Maryuri Hogue PLT 262 103/ul Normal 150-450 [facility] Comment on above: Performed By: #### C BC #### [facility] [address] [place] [address] Dr. Maryuri Hogue RBC 4.90 106/ul Normal 4.20-5.40 [facility] Comment on above: Performed By: #### C BC #### [facility] [address] [place] [address] Dr. Maryuri Hogue WBC 7.2 103/ul Normal 4.0-11.0 [facility] Comment on above: Performed By: #### C BC #### [facility] [address] [place] [address] Dr. Maryuri Hogue FREE T4on 12-19-2022 Free T4 [Mass/Vol] 0.85 ng/dL Normal 0.76-1.46 [facility] Comment on above: Performed By: #### L BCLH #### [facility] [address] [place] [address] Dr. Maryuri Hogue GLYCOHEMOGLOBIN A1Con 2022 ADA RECOMMENDATION SEE BELOW Normal [facility] Comment on above: Result Comment: ADA RECOMMENDED LIMIT 4.0 - 6.0 ADA THERAPEUTIC TARGET < 7.0 ACTION SUGGESTED > 7.0 Performed By: #### L CYDNEYH #### [facility] [address] [place] [address] Dr. Maryuri Hogue Glucose [Mass/Vol] 91 mg/dL Normal [facility] Comment on above: Performed By: #### L BCL #### [facility] [address] [place] [address] Dr. Maryuri Hogue HbA1c (Bld) [Mass fraction] 4.8 % Normal 4.5-6.2 [facility] Comment on above: Performed By: #### L BCLH #### [facility] [address] [place] [address] Dr. Maryuri Hogue PREG QUANT HCGon 12-19-2022 HCG QUANT <1 Normal [facility] Comment on above: Performed By: #### P REGQNT, TSH #### [facility] [address] [place] [address] Dr. Maryuri Hogue HCG RANGE SEE BELOW Normal [facility] Comment on above: Result Comment: 5-50 0.2-1 WEEK 50-500 1-2 WEEKS 100-5,000 2-3 WEEKS 500-10,000 3-4 WEEKS 1,000-50,000 4-5 WEEKS 10,000-100,000 5-6 WEEKS 15,000-200,000 6-8 WEEKS 10,000-100,000 2-3 MONTHS Performed By: #### P REGQNT, TSH #### [facility] [address] [place] [address] Dr. Maryuri Hogue TSHon 12-19-2022 TSH 3.332 uIU/mL Normal 0.358-3.74 0 [facility] Comment on above: Performed By: #### P REGQNT, TSH #### [facility] [address] [place] [address] Dr. Maryuri Hogue ED Note-Physicianon 11-10-19 ED Note-Physician [id number]:[id number] Normal [facility] CELIAC ANTIBODIES PROFILEon 08-25-2022 Deamidated Gliadin Abs, IgA 4 units Normal 0-19 [facility] Comment on above: Result Comment: Nega tive 0 - 19 Weak Positive 20 - 30 Moderate to Strong Positive >30 Performed By: #### C ELIACP #### [facility] [address] [place] [address] Dr. Maryuri Hogue Deamidated Gliadin Abs, IgG 3 units Normal 0-19 [facility] Comment on above: Result Comment: Nega tive 0 - 19 Weak Positive 20 - 30 Moderate to Strong Positive >30 Performed By: #### C ELIACP #### [facility] [address] [place] [address] Dr. Maryuri Hogue Endomysial Antibody IgA Negative Normal Negative [facility] [facility] Comment on above: Performed By: #### C ELIACP #### [facility] [address] [place] [address] Dr. Maryuri Hogue Immunoglobulin A, Qn, Serum 79 mg/dL Critically low 87-352 [facility] Comment on above: Performed By: #### C ELIACP #### [facility] [address] [place] [address] Dr. Maryuri Hogue t-Transglutaminas e (tTG) IgA <2 Normal 0-3 [facility] Comment on above: Result Comment: Nega tive 0 - 3 Weak Positive 4 - 10 Positive >10 . Tissue Transglutaminase (tTG) has been identified as the endomysial antigen. Studies have demonstr- ated that endomysial IgA antibodies have over 99% specificity for gluten sensitive enteropathy. Performed By: #### C ELIACP #### [facility] [address] [place] [address] Dr. Maryuri Hogue t-Transglutaminas e (tTG) IgG <2 Normal 0-5 [facility] Comment on above: Result Comment: Nega tive 0 - 5 Weak Positive 6 - 9 Positive >9 Performed By: #### C ELIACP #### [facility] [address] [place] [address] Dr. Maryuri Hogue BILIRUBIN CONJUGATED (DIRECT )on 08-24-2022 BILI, CONJUGATED 0.2 mg/dL Normal 0.0-0.2 [facility] Comment on above: Performed By: #### D RINA #### [facility] [address] [place] [address] Dr. Maryuri Hogue CBC AUTO DIFFon 08-24-2022 BASO # 0.0 103/ul Normal 0.0-0.1 [facility] Comment on above: Performed By: #### C BC #### [facility] [address] [place] [address] Dr. Maryuri Hogue Basophils/100 WBC (Bld) 0.3 % Normal 0.2-2.0 [facility] Comment on above: Performed By: #### C BC #### [facility] [address] [place] [address] Dr. Maryuri Hogue EO # 0.1 103/ul Normal 0.0-0.7 [facility] Comment on above: Performed By: #### C BC #### [facility] [address] [place] [address] Dr. Maryuri Hogue Eosinophils/100 WBC (Bld) 0.8 % Critically low 0.9-7.0 [facility] Comment on above: Performed By: #### C BC #### [facility] [address] [place] [address] Dr. Maryuri Hogue Erythrocyte distribution width (RBC) [Ratio] 11.9 % Normal 11.0-15.0 [facility] Comment on above: Performed By: #### C BC #### [facility] [address] [place] [address] Dr. Maryuri Hogue Hematocrit (Bld) [Volume fraction] 43.2 % Normal 36.0-48.0 [facility] Comment on above: Performed By: #### C BC #### [facility] [address] [place] [address] Dr. Maryuri Hogue Hemoglobin (Bld) [Mass/Vol] 14.7 g/dL Normal 12.0-16.0 [facility] Comment on above: Performed By: #### C BC #### [facility] [address] [place] [address] Dr. Maryuri Hogue IG # 0.04 10e3/ul Critically high 0.00-0.03 [facility] Comment on above: Performed By: #### C BC #### [facility] [address] [place] [address] Dr. Maryuri Hogue IG % 0.4 % Normal 0.0-0.5 [facility] Comment on above: Performed By: #### C BC #### [facility] [address] [place] [address] Dr. Maryuri Hogue LYMPH # 2.2 103/ul Normal 1.2-3.8 [facility] Comment on above: Performed By: #### C BC #### [facility] [address] [place] [address] Dr. Maryuri Hogue Lymphocytes/100 WBC (Bld) 21.7 % Normal 20.5-60.0 [facility] Comment on above: Performed By: #### C BC #### [facility] [address] [place] [address] Dr. Maryuri Hogue MANUAL DIFF REQ NO Normal [facility] Comment on above: Performed By: #### C BC #### [facility] [address] [place] [address] Dr. Maryuri Hogue MCH (RBC) [Entitic mass] 29.5 pg Normal 26.7-34.0 [facility] Comment on above: Performed By: #### C BC #### [facility] [address] [place] [address] Dr. Maryuri Hogue MCHC (RBC) [Mass/Vol] 34.0 g/dL Normal 29.9-35.2 [facility] Comment on above: Performed By: #### C BC #### [facility] [address] [place] [address] Dr. Maryuri Hogue MCV (RBC) [Entitic vol] 86.7 fL Normal 81.0-99.0 [facility] Comment on above: Performed By: #### C BC #### [facility] [address] [place] [address] Dr. Maryuri Hogue MONO # 0.8 103/ul Normal 0.3-0.8 [facility] Comment on above: Performed By: #### C BC #### [facility] [address] [place] [address] Dr. Maryuri Hogue Monocytes/100 WBC (Bld) 8.2 % Normal 1.7-12.0 [facility] Comment on above: Performed By: #### C BC #### [facility] [address] [place] [address] Dr. Maryuri Hogue NEUT # 6.9 103/ul Critically high 1.4-6.5 [facility] Comment on above: Performed By: #### C BC #### [facility] [address] [place] [address] Dr. Maryuri Hogue Neutrophils/100 WBC (Bld) 68.6 % Normal 43.0-75.0 [facility] Comment on above: Performed By: #### C BC #### [facility] [address] [address] [address] Maryuri Hogue Platelet mean volume (Bld) [Entitic vol] 8.7 fL Critically low 9.5-13.5 [facility] Comment on above: Performed By: #### C BC #### [facility] [address] [address] [address] Maryuri Hogue PLT 260 103/ul Normal 150-450 [facility] Comment on above: Performed By: #### C BC #### [facility] [address] [address] [address] Maryuri Hogue RBC 4.98 106/ul Normal 4.20-5.40 [facility] Comment on above: Performed By: #### C BC #### [facility] [address] [address] [address] Maryuri Hogue WBC 10.1 103/ul Normal 4.0-11.0 [facility] Comment on above: Performed By: #### C BC #### [facility] [address] [place] [address] ABD/PELVIS WO CONon 08-24 CT ABD/PELVIS WO CON EXAMINATION: CT ABD/PELVIS WO CON, 08/24/2022 10:18 AM EST HISTORY: UNSPECIFIED ABDOMINAL PAIN , hematochezia COMPARISON: None. TECHNIQUE: CT scan of the abdomen and pelvis was performed without IV contrast. CT dose reduction technique was used, including Automated Exposure Control. FINDINGS: LUNG BASES: No visible pulmonary or pleural disease. LIVER: No enlargement, atrophy, abnormal density, or significant focal lesion. BILIARY: No dilatation or calcification. PANCREAS: No lesion, fluid collection, ductal dilatation, or atrophy. SPLEEN: No enlargement or focal lesion. ADRENALS: No mass or enlargement. KIDNEYS: No mass, obstruction, or calcification. BOWEL/MESENTERY: No visible mass, obstruction, or bowel wall thickening. AORTA/VASCULAR: No aneurysm or dissection. RETROPERITONEUM: No mass or adenopathy. LYMPH NODES: No adenopathy. URINARY BLADDER: No visible focal wall thickening, lesion, or calculus. PELVIC ORGANS: No visible mass. Pelvic organs appropriate for patient age. 2 cm left adnexal hypodensity, a cyst is favored ABDOMINAL WALL: No mass or hernia. BONES: No bony lesion or fracture. OTHER: 2.7 x 1.5 cm area of hypodensity identified in the left labia majora/inferior vagina, partially visualized IMPRESSION: 2.7 cm hypodensity lower third of the left vagina/labia majora. I favor a Bartholin gland cyst, clinically correlate No CT explanation for the patient's hematochezia Electronically authenticated by: JANEEN GONZALEZ Date: 2022-08-24 11:46 Normal [facility] URINE PROFILEon 3 Bilirubin Ql (U) Negative Normal NEGATIVE [facility] Comment on above: Performed By: #### L BCL #### [facility] [address] [place] [address] Dr. Maryuri Hogue Clarity (U) CLEAR Normal CLEAR [facility] Comment on above: Performed By: #### L BCL #### [facility] [address] [place] [address] Dr. Maryuri Hogue Color (U) LT. YELLOW Normal YELLOW [facility] Comment on above: Performed By: #### L BCL #### [facility] [address] [place] [address] Dr. Maryuri Hogue ERUAHD A micrscopic examina tion will be performed if indicated. Normal [facility] Comment on above: Performed By: #### L BCL #### [facility] [address] [place] [address] Dr. Maryuri Hogue Glucose Ql (U) Negative Normal NEGATIVE [facility] Comment on above: Performed By: #### L BCL #### [facility] [address] [place] [address] Dr. Maryuri Hogue Hemoglobin Ql (U) TRACE-INTACT Abnormal NEGATIVE [facility] Comment on above: Performed By: #### L BCLH #### [facility] [address] [place] [address] Dr. Maryuri Hogue Ketones Ql (U) Negative Normal NEGATIVE [facility] Comment on above: Performed By: #### L BCLH #### [facility] [address] [place] [address] Dr. Maryuri Hogue LEUKOCYTES Negative Normal NEGATIVE [facility] Comment on above: Performed By: #### L BCL #### [facility] [address] [place] [address] Dr. Maryuri Hogue Nitrite Ql (U) Negative Normal NEGATIVE [facility] Comment on above: Performed By: #### L BCL #### [facility] [address] [place] [address] Dr. Maryuri Hogue pH (U) 6.0 [pH] Normal 5-9 [facility] Comment on above: Performed By: #### L BCL #### [facility] [address] [place] [address] Dr. Maryuri Hogue SPEC GRAVITY 1.010 Normal 1.005-<=1. 025 [facility] Comment on above: Performed By: #### L BCL #### [facility] [address] [place] [address] Dr. Maryuri Hogue UA PROTEIN Negative Normal NEGATIVE/ TRACE [facility] Comment on above: Performed By: #### L BCL #### [facility] [address] [place] [address] Dr. Maryuri Hogue UR MICRO IND INDICATED Normal [facility] Comment on above: Performed By: #### L BCL #### [facility] [address] [place] [address] Dr. Maryuri Hogue Urobilinogen Qn (U) 0.2 {Dick'U}/dL Normal 0.2 - 1.0 [facility] Comment on above: Performed By: #### L BCL #### [facility] [address] [place] [address] Dr. Maryuri Hogue OCC BLD IMMUNO SCREENon OCCULT BLOOD Negative Normal NEGATIVE [facility] Comment on above: Performed By: #### L BCL #### [facility] [address] [place] [address] Dr. Maryuri Hogue PREG HCG QUALon 08-24-2022 , QUAL Negative Normal NEGATIVE [facility] Comment on above: Performed By: #### L BCL #### [facility] [address] [place] [address] Dr. Maryuri Hogue PROF 14(COMP METB)on 023 Albumin [Mass/Vol] 4.3 g/dL Normal 3.4-5.0 [facility] Comment on above: Performed By: #### C BC #### [facility] [address] [place] [address] Dr. Maryuri Hogue Albumin/Globulin [Mass ratio] 1.3 {ratio} Normal [facility] Comment on above: Performed By: #### C BC #### [facility] [address] [place] [address] Dr. Maryuri Hogue ALP [Catalytic activity/Vol] 79 U/L Normal 46-116 [facility] Comment on above: Performed By: #### C BC #### [facility] [address] [place] [address] Dr. Maryuri Hogue ALT [Catalytic activity/Vol] 28 U/L Normal 14-59 [facility] Comment on above: Performed By: #### C BC #### [facility] [address] [place] [address] Dr. Maryuri Hogue Anion gap [Moles/Vol] 15.0 mmol/L Normal [facility] Comment on above: Performed By: #### C BC #### [facility] [address] [place] [address] Dr. Maryuri Hogue AST [Catalytic activity/Vol] 18 U/L Normal 15-37 [facility] Comment on above: Performed By: #### C BC #### [facility] [address] [place] [address] Dr. Maryuri Hogue Bilirubin [Mass/Vol] 1.2 mg/dL Critically high 0.2-1.0 [facility] Comment on above: Performed By: #### C BC #### [facility] [address] [place] [address] Dr. Maryuri Hogue Calcium [Mass/Vol] 9.3 mg/dL Normal 8.5-10.1 [facility] Comment on above: Performed By: #### C BC #### [facility] [address] [place] [address] Dr. Maryuri Hogue Chloride [Moles/Vol] 102 mmol/L Normal 98-107 [facility] Comment on above: Performed By: #### C BC #### [facility] [address] [place] [address] Dr. Maryuri Hogue CO2 [Moles/Vol] 25.7 mmol/L Normal 21.0-32.0 [facility] Comment on above: Performed By: #### C BC #### [facility] [address] [place] [address] Dr. Maryuri Hogue Creatinine [Mass/Vol] 0.81 mg/dL Normal 0.55-1.02 [facility] Comment on above: Performed By: #### C BC #### [facility] [address] [place] [address] Dr. Maryuri Hogue EGFR-AF CYMRO >60 Normal >=60 [facility] Comment on above: Performed By: #### C BC #### [facility] [address] [place] [address] Dr. Maryuri Hogue EGFR-NON AF CYMRO >60 Normal >=60 [facility] Comment on above: Performed By: #### C BC #### [facility] [address] [place] [address] Dr. Maryuri Hogue Globulin (S) [Mass/Vol] 3.3 g/dL Normal [facility] Comment on above: Performed By: #### C BC #### [facility] [address] [place] [address] Dr. Maryuri Hogue Glucose [Mass/Vol] 96 mg/dL Normal 74-106 [facility] Comment on above: Performed By: #### C BC #### [facility] [address] [place] [address] Dr. Maryuri Hogue Potassium [Moles/Vol] 3.7 mmol/L Normal 3.5-5.1 [facility] Comment on above: Performed By: #### C BC #### [facility] [address] [place] [address] Dr. Maryuri Hogue Protein [Mass/Vol] 7.6 g/dL Normal 6.4-8.2 [facility] Comment on above: Performed By: #### C BC #### [facility] [address] [place] [address] Dr. Maryuri Hogue Sodium [Moles/Vol] 139 mmol/L Normal 136-145 [facility] Comment on above: Performed By: #### C BC #### [facility] [address] [place] [address] Dr. Maryuri Hogue Urea nitrogen [Mass/Vol] 11.0 mg/dL Normal 7.0-18.0 [facility] Comment on above: Performed By: #### C BC #### [facility] [address] [place] [address] Dr. Maryuri Hogue Urea nitrogen/Creatini ne [Mass ratio] 13.6 mg/mg Normal [facility] Comment on above: Performed By: #### C BC #### [facility] [address] [place] [address] Dr. Maryuri oHgue PROTIMEon 08-24-2022 INR Coag (PPP) [Relative time] 1.00 {INR} Normal [facility] Comment on above: Performed By: #### P T, PTT #### [facility] [address] [place] [address] Dr. Maryuri Hogue INR GUIDELINES SEE BELOW Normal [facility] Comment on above: Result Comment: JASMEET RED INR: 2.0 - 3.0 CONDITIONS NOT LISTED BELOW 2.5 - 3.5 FOR PROSTHETIC HEART VALVE REPLACEMENT 2.5 - 3.5 RECURRENT THROMBOSIS Performed By: #### P T, PTT #### [facility] [address] [place] [address] Dr. Maryuri Hogue PT Coag (PPP) [Time] 10.6 s Normal 9.0-11.6 [facility] Comment on above: Performed By: #### P T, PTT #### [facility] [address] [place] [address] Dr. Maryuri Hogue PTTon 08-24-2022 aPTT Coag (Bld) [Time] 28.7 s Normal 22.3-36.2 [facility] Comment on above: Performed By: #### P T, PTT #### [facility] [address] [place] [address] Dr. Maryuri Hogue URINE MICROSCOPIC ONLYon BACTERIA NONE SEEN Normal NONE SEEN [facility] Comment on above: Performed By: #### L BCL #### [facility] [address] [place] [address] Dr. Maryuri Hogue Bacteria identified Cx Nom (U) NOT INDICATED Normal [facility] Comment on above: Performed By: #### L BCLH #### [facility] [address] [place] [address] Dr. Maryuri Hogue CAST NONE SEEN Normal NONE SEEN [facility] Comment on above: Performed By: #### L BCL #### [facility] [address] [place] [address] Dr. Maryuri Hogue Crystals LM Nom (Urine sed) NONE SEEN Normal NONE SEEN [facility] Comment on above: Performed By: #### L BCL #### [facility] [address] [place] [address] Dr. Maryuri Hogue Epithelial cells LM Ql (Urine sed) FEW Abnormal NONE SEEN /RARE [facility] Comment on above: Performed By: #### L BCL #### [facility] [address] [place] [address] Dr. Maryuri Hogue MUCOUS NONE SEEN Normal NONE SEEN [facility] Comment on above: Performed By: #### L BCL #### [facility] [address] [place] [address] Dr. Maryuri Hogue RBC 0-2 Normal 0-2 [facility] Comment on above: Performed By: #### L BCL #### [facility] [address] [place] [address] Dr. Maryuri Hogue WBC NONE SEEN Normal NONE SEEN [facility] Comment on above: Performed By: #### L BCL #### [facility] [address] [place] [address] Dr. Maryuri Hogue Coding Summary.on 05-04-2022 Coding Summary. [id number] Gh0bWw+PGhlY WQ+GD2EOZSdO09ygPNgcV9KL3aRUY2DL UCXNTZFIB9XMJ5enFY7UNukE5VbmjJd OoocrDOaBU27SNx0UOY9lFcrVQzivZ5x dZOjK8i5YbNuLI39kV13LNnuZYSvXlQ8 LjZpbjsgbWFy F7ihGkDauTKnFtv+PHRhYmxlIHdpZHRo NUwxDNWtVpWblUniUD7wMl4eNYTvZNMp bGxhcHNlOiBj x5roHVUbWEfsVR5bjClyS0WkqCE6JEAn b8i9Sl92nMR+OSYvSVR9rFgcPCtde313 QsFod8irBFQ9 dQNdWOuhXSY5A67lc8P9SNLcWWGrOYP0 iLH7wJ0ugWokiqyjR8CowMJoJkR7AQO0 pCWplY5maMsv bsctyV5rOvu+X30CZO7IXRLPTB2JNbl7 A2AuRafbzCE+IU14MMFmNH22oCGypDJa d8uimEc9CfGf LBFeOAJ1nXtjSQprg2IpMWNzP78rlXEp l9R2JSJjdFedpTWlWeJqdCZ9yZ4jREcb hlknw4ljoqyv Eckyi3qqgr52fW66R12hGSsqBLLnOXU8 NIOxHCEbvUvgpj8tcJ8aEy0+ZJkhd1cr e4ycpYa9RdHm VWNevhMwkDzrJRJ5t1ElCa73J4UinKme u7FlUgz2mo21hJZig3Q9gHL3LYscHFCn aG8zLZcnGjD3 LQYvHeOwtO67qYCsFErmOy3szSxqdYwe OV6nJGJajgexQKQnbT9gUQZdbFIrfOaf PR4nKUOhbvck g363UvZaTPV4GDSxiXLrS1CsdX6iPsCr YUKbPNSsD9MqlBCwZCawS493ATlpFvM2 QUWdccKrE7Wa NYEhyXpnGfQ7x5F8Br0Jx1GbkjsdRAY0 NMwnFCNqUePuQdUyUjK3T7HfJyg1OQUj wPcsVO2vM1Rl NTFajxnecznxnUT6RVIlXHEyoM92xLUa NPjmIe2mg5U6o959TQSxXFQoeW90Et7f dDogMTBwdCBU aJ4jnsdum7fdrydeZbBtJYQjZQq4XCc7 KXYvjWpiRcHaFXE1IqI4XQT9aVWajS2c vVxoyodcfB9r Oyc+F60xqA7oRLR5QUF0ejzqMLIflsVa GS28EM82O5XeTkyhbZGduDP+PGRpdiBz oHfgXY3eDcHn f1ljs1NtGMfwV4EyEJGxJFryAfs5QMJo PJP6rDC8qJ4fSWIbUSomw4B8vDB8J1Qp kpVvku6no6lr LRHgBKafT71taRHnb2O8VHEgqXZ3WCBe pQlaAqDndO17Pmw+MSMfwHklr9OtJxia j3vio8jcxEg7 NgXoGELfexNwkZwfKPE4p1ZjGm45E34m LTusFTOoHJAxHFNvKDIpzRakvx8wbU5a Ii8+PGNvbCB3 vSK0qF2zLCRuWmM8OSipB595WqYwxNBc Rgwgp5iby7nlgVr9GaShZBJnyxZqcDdm QOT4k4CpUf40 B63wIWinISUqDIFfXPRwKNBmaXzvml6s qT6cBj4+FJ0qm1pnju98sA35aZK+PHRk MIX8pNusJHlu IYYdyK0yFLpgLsB3YNAhZrArsT46xTFe NCvqXv4amWjivDpyMF0nMQScvbknt937 SoQro6ekNYOg pQHfCVksCQZ7F75gf0P1DKUbVPAeZAH9 hLL0iB0qcGxuhejacOOrkJozrrBnaDxb CAuoOYklF334 YKRscJmdFuOigKlhumGrPnXjMVw0V6Df Mmp1GKXwgHlsSG8wxFLoJObpUt6lhDtv oNynEK5eKHGs scrso638AkCwp4usTLKltSFtIFlgVBL6 A23va4H3GYUfKKQeHVT2fGT1uX5suHqr bjogbGVmdDsg zwHzaZjtBDvkVEczO381ZOVpaDlyFrTg rpMyHHExhZZ2GN24HK68dNZnr9Q6rDU3 V5DgHLCtudhm uqdyfOI9EBHnCGJlrT80Pu8awDgxVc1l WZOaLEL3GOSarTYxC1EkiB0zKgMiFNVx KZGoA0RzmFEk PBnaS815BLmnVfO7LJIwtmBsG6CaXJJq uYyvBwT3b5H2Vv5XD3D3DL56AI40bNIk g8Z8hOH4A2Mw JONexcborhjaoBU8QBLxBBFwdF60Ma4z nXpeSq9jRFYtIZX4OVRopTBpY1KkfG3v OiAjMDAwMDAw X4MxjRSbWJxzU811TLaaKkG9EAPjtrCh V9DeGQScwMwnFsY4f9E8Bx6ZHGn2TE61 WZ46qJWrc2P1 jFU7N2SoJRPntlhfjzqnpZL8FIFnDHHk uA14Dy6znUcgTv7pBWSkMBO9KTWpdEMn B0TnvM7qEoVx CIAlLHEuG7CycCXjUFttY459NGqaBkU7 VLMkmcEdK9XyYHLumTgwZvV8w0C2Ib0P HFWlJU84IEM9 mGF9CE86EF91T5RhHmxtcDTekXF+PHRh NetaJUjxMBYiLZycOFJxRuUbpLsoUQ3t Uh6xWURrZUOx eEfzyAClXdOng9ilJVJnFQyfFT8quUpz L8FhyKV8OLCna5i0Ax02G58pE5BirLV+ KEOsvVR9kQX2 fY6mVzRyZhC6QLysH781CuBbuRPfVszj c0gdq6xrtUx7SnA1FBVtpgRcvWtjFCD1 f1MvDk14C10j TSqwTAWtTHOrXMFpMPIwlMbuth5owR0v Ii8+PBAawIK5gBR6yI9aUmLiIxW5JCjr S321PcKbzAVx Nxjuu2pzi1midYt7NaMeOOPphiDlmRhd FIY1m5BvUq23R3ZugYmra3RxTdv0cr91 uOGzm3Q6hGI8 P8BfHPTedweclMFrwBcpNQ9wARFiwrhp DTSboD9cWXSbT6v6LuCaNfN9AOwkZ4Sd aaD3OCXipNLx UTspXUR4T21qq8I6LGVtSLLiRYE6qLA9 qA8zhWahagwwwHObkIlkfnJgeQpeQHqi QDxmN054HZGd jCjfVFBkmY0bYOKbcCFaoIikTH3dFMZj dvhwVnEGVP4CGOBpFXTBBFE0F4KyAsr9 FKBmzOexMQ6z kPEiFBlnHu8hwBfwkLwbJZ8zCVJklqjn FEHuhR0jLMTypMKraSsyFG9mNWJogrcx l348QtNdGSH2 AZUnbNNpO2MyhH2lXoWwPLUxKGOqA1Ev iFYxNIobF732SDtyGjT3WJMvkgZdC0Sx LWFsaWduOiB0 h2I1Mp0lNG1xUh0lKUOlRM94DY61lSRp z7U1bWI0A3WkJDCkjonkdvycbQB1BAHc QNZqbG62nMXc BVycFo4pq4Z4n353SBLyXYQhvG85Ei3e sLuiEVLwyKRJaZ9uymjmg7uypfasXgUx QSFwTJl8ELa4 DTEamSzwZbAdARE5UdD2POM2bTVueE8y zCyhggwjzB3uJxt+AqLrLPWypkZ6B4Sn Rzb7OXOimLtr RW0riLAoZRvxOd4jfNpdoRtnJY1qKOQm fbqyNBGguI6fXMOfrUPfiOnkXR1rMZBr bmtvk028HmXx RZT6TBIvyXSpE0YhzR9zAuHbFPLeZNZo T4AeqZBnWMcpO634XUzkJsG9IRIdnmCk B3TbFILgjBau XfF1o5S1Qa2ZVK7drKG2A9XhPmw0HNDn wWgiFI3hsCHsQEocPm6yfAoiaEtvVD6g NTBpbjtwYWRk eJ2pVRXkxQAmfEelOG5xZHUhgigev164 YdIeKSX7SINfiRZbN1WrkH9dNmDnVBBv YRXyU5LyzYRe LWljY156OPmqZzW8LBPscuNnO1MzBXUe cYkqDkY2s1H9Oq4KCKUaLAFqvLTzZxC0 S7TiSfdreMO+ CB09DAYjHJ36lVPlsCDyg9qkkFl4TtYq XHEwQNY6yQcfEJecl4EhDQInC67shPSh l1F1PSRuwKas kBUdZvGjfGQ6xC5wGTxwrnwxk5rbslun Wllrt1hdzk71jK64J22uOGxpZYJfYAWz MCUiIHZhbGln cf4ruO5tDr8+DDNdtUI8zVB4lF4fLsQr FaD3ZBlyD205EkVjbOGzUzwmd7vkf5ao wXx6OhRbMPEh voUvsWtaFLW6u6WdFl66E34cPWfySIAp WFYyVWAvQGUmnCnbkj8dkI8gUm8+PC9j d1pynj08yU85 dHI+GUBbRHV3uXdyEOhvCQTjiB4hOTwc YiA3CBLyGjRwqZ17iOAkYNlsAm5ngHnh uWfhGE9gJTGc pyjfz700NcWxl9pyMDYciUDoZXgvMCM5 W45ne8W9DRMgUVJsNQL4bWP1kE5iaGjd bjogbGVmdDsg paRqtQzqVRiaAYyxC905VQDvzNwoPeGw qLHcX7xelgJBWO7rBmugwAX+PHRkIHN0 eWxlPSdwYWRk yL2qNJPiK7b6WvEsZfO2IQdzP9AegsY1 PSYdrPJkVFEveBXUmM1jltbxr7wcsmeu IzAwMDAwMDt0 SMc3JPMvvJpzScIeEQT5ZoU1LUY7xGQp gL0snUlbqsbrcC8wRyj+RklOOjwvdGQ+ EVZbXJT1nYqh NLexUJEfgD1dVMFtB3n7ZxBvNgJ3OYuh V7QvxrT0TBZvuFGdJSWjmXNEzC6fqlhm l2rnoxzpNfMb GTUkFCy6SIm6VRYqgUugXmZaPUN7NyC1 PBK7fAQrpC7zlAvysgtenZ9vYke+TVJO OjwvdGQ+PHRk QPP5fYtaVDaoYKAhzJ3pNDLeH4q9OuZz UaR1VGeaR3YewqE4QKHvpOGgRVLfvRPH oB0qmftya6zq wxvcGxJvOYOpJYy2GLf7UFLknEzmSwEu VIL8UcV5YSD7rDWetF1hlOzjbsdesH6d Oyc+PIZ9UTJ6 CO61CQ73V0YqBnuzrEAqbHP+PHRhYmxl JNwwDYZxPYfwCARwPxZoiWitPJ6dEo5y ZGVyLWNvbGxh cHNl (more content not included)... Normal [facility] TESTOSTERONE, FREE,DIRECT, T OTALon 03-31-2022 Free Testosterone(Dire ct) 3.1 pg/mL Normal 0.0-4.2 [facility] Comment on above: Result Comment: Perf ormed at: BN Performed By: #### L CYDNEY #### [facility] [address] [place] [address] Dr. Maryuri Hogue Testosterone [Mass/Vol] 39 ng/dL Normal 13-71 [facility] Comment on above: Result Comment: Perf ormed at: CB Performed By: #### L CYDNEY #### [facility] [address] [place] [address] Dr. Maryuri Hogue INSULINon 03-29-2022 Insulin 8.5 uIU/mL Normal 2.6-24.9 [facility] Comment on above: Performed By: #### C BC #### [facility] [address] [place] [address] Dr. Maryuri Hogue PROLACTINon 03-29-2022 Prolactin 23.8 ng/mL Critically high 4.8-23.3 The [facility] Comment on above: Performed By: #### L CYDNEY #### [facility] [address] [address] [address] Maryuri Hogue FREE T4on 03-28-2022 Free T4 [Mass/Vol] 0.84 ng/dL Normal 0.76-1.46 [facility] Comment on above: Performed By: #### C BC #### [facility] [address] [place] [address] Dr. Maryuri Hogue PROF CHEM 8 (BAS METB)on Anion gap [Moles/Vol] 11.4 mmol/L Normal [facility] Comment on above: Performed By: #### C BC #### [facility] [address] [place] [address] Dr. Maryuri Hogue Calcium [Mass/Vol] 9.2 mg/dL Normal 8.5-10.1 [facility] Comment on above: Performed By: #### C BC #### [facility] [address] [place] [address] Dr. Maryuri Hogue Chloride [Moles/Vol] 102 mmol/L Normal 98-107 [facility] Comment on above: Performed By: #### C BC #### [facility] [address] [place] [address] Dr. Maryuri Hogue CO2 [Moles/Vol] 27.3 mmol/L Normal 21.0-32.0 [facility] Comment on above: Performed By: #### C BC #### [facility] [address] [place] [address] Dr. Maryuri Hogue Creatinine [Mass/Vol] 0.83 mg/dL Normal 0.55-1.02 [facility] Comment on above: Performed By: #### C BC #### [facility] [address] [place] [address] Dr. Maryuri Hogue EGFR-AF CYMRO >60 Normal >=60 [facility] Comment on above: Performed By: #### C BC #### [facility] [address] [place] [address] Dr. Maryuri Hogue EGFR-NON AF CYMRO >60 Normal >=60 [facility] Comment on above: Performed By: #### C BC #### [facility] [address] [place] [address] Dr. Maryuri Hogue Glucose [Mass/Vol] 83 mg/dL Normal 74-106 [facility] Comment on above: Performed By: #### C BC #### [facility] [address] [place] [address] Dr. Maryuri Hogue Potassium [Moles/Vol] 3.7 mmol/L Normal 3.5-5.1 [facility] Comment on above: Performed By: #### C BC #### [facility] [address] [place] [address] Dr. Maryuri Hogue Sodium [Moles/Vol] 137 mmol/L Normal 136-145 [facility] Comment on above: Performed By: #### C BC #### [facility] [address], [place] [address] Dr. Maryuri Hogue Urea nitrogen [Mass/Vol] 13.0 mg/dL Normal 7.0-18.0 [facility] Comment on above: Performed By: #### C BC #### [facility] [address] [address] [address] Maryuri Hogue Urea nitrogen/Creatini ne [Mass ratio] 15.7 mg/mg Normal [facility] Comment on above: Performed By: #### C BC #### [facility] [address], [place] [address] Dr. Maryuri Hogue TSHon 03-28-2022 TSH 1.748 uIU/mL Normal 0.358-3.74 0 [facility] Comment on above: Performed By: #### C BC #### [facility] [address] [address] [address] Maryuri Hogue Lab Miscellaneous-LCon 01-26 Lab Miscellaneous COMMENT Invalid Interpretation Code [facility] Comment on above: Result Comment: Test Ordered: [id number] IGP,rfxAptima HPV all,16/18,45 IGP,rfxAptima HPV all,16/18,45 Note [A ] WB TESTS RESULT FLAG UNITS REF RANGE LAB DIAGNOSIS: [A] 01 EPITHELIAL CELL ABNORMALITY. LOW GRADE SQUAMOUS INTRAEPITHELIAL LESION (LSIL). Recommendation: [A] 01 Suggest follow up as clinically appropriate. Specimen adequacy: 01 Satisfactory for evaluation. Endocervical and/or squamous metaplastic cells (endocervical component) are present. Performed by: Amadeo Downing, Stuffed Casing Tier (ASCP) Electronically si... Sydni Whittaker MD, Pathologist . 01 Pathologist ICD10: 01 R87.612 Note: Note 01 The Pap smear is a screening test designed to aid in the detection of premalignant and malignant conditions of the uterine cervix. It is not a diagnostic procedure and should not be used as the sole means of detecting cervical cancer. Both false-positive and false-negative reports do occur. Test Methodology: Note 01 This liquid based ThinPrep(R) pap test was screened with the use of an image guided system. . 01 See below for HPV testing results. FLAG LEGEND: L-Low Normal,H-High Normal,LL-Alert Low,HH-Alert High <-Panic Low,>-Panic High,A-Abnormal,AA-Critical Abnormal Performed at: [address] [address] Lucie Lewis MD, HPV Aptima Positive [A ] =G Reference Range: Negative This nucleic acid amplification test detects fourteen high-risk HPV types (16,18,31,33,35,39,45,51,52,56,58,59,66,68) without differentiation. HPV Genotype 16 Negative =G Reference Range: Negative HPV Genotype 18,45 Negative =G Reference Range: Negative Performed at: [address] [id number] MD Joshua Faulkner Performed By: #### 1 [id number], [id number] #### [facility] [address] [place] [address] Physician Read Hunter 022 Pathologist review Cesar (Unsp spec) [Interp] Note Invalid Interpretation Code [facility] Comment on above: Result Comment: TEST S RESULT FLAG UNITS REF RANGE LAB Clinician Provided Cytology Information No. of containers..01 ThinPrep Vial Physician Read Pap Note 01 Performed FLAG LEGEND: L-Low Normal,H-High Normal,LL-Alert Low,HH-Alert High <-Panic Low,>-Panic High,A-Abnormal,AA-Critical Abnormal Performed at: 01 [facility] [address] [address] Lucie Lewis MD, Performed at: [facility] [address] [id number] MD Joshua Faulkner Performed By: #### 1 [id number], [id number] #### [facility] [address] [place] [address] Lab Miscellaneous-LCon 01-18 Source CERVICAL Invalid Interpretation Code [facility] Comment on above: Performed By: #### 1 [id number], [id number] #### [facility] [address] [place] [address] Test Code 812612 Invalid Interpretation Code [facility] Comment on above: Performed By: #### 1 [id number], [id number] #### [facility] [address] [place] [address] Test Name IG PAP HPV NATHALIE Invalid Interpretation Code [facility] Comment on above: Performed By: #### 1 [id number], [id number] #### [facility] [address] [place] [address] Physician Orderon 01-18-2022 Physician Order [id number]:127 Normal [facility] Testing Ordered By: Reshma Soto on 01-18-2022 Test Code 885186 Invalid Interpretation Code [facility] Test Name IG PAP HPV NATHALIE Invalid Interpretation Code [facility] PREG HCG QUALon 01-03-2022 , QUAL Negative Normal NEGATIVE [facility] Comment on above: Performed By: #### P REG #### [facility] [address], [place] [address] Dr. Maryuri Hogue Coding Summaryon 05-29-2017 Coding Summary CODING DATE: [facility] STATUS: Home PAYOR: Medicaid HMO ADMIT DX: REASON FOR VISIT DX: R10.9 Unspecified abdominal pain FINAL DX: PRINCIPAL: K29.70 Gastritis, unspecified, without bleeding SECONDARY: R82.90 Unspecified abnormal findings in urine F43.9 Reaction to severe stress, unspecified PROCEDURES DOCTOR NAME DATE NOTE: The code number assigned matches the documented diagnosis and / or procedure in the patient's chart. However, the narrative phrase printed from the coding software may appear abbreviated, or result in slightly different terminology. Revised Coded By: Lilliana Neumann Revised Date Saved: 03/15/2017 11:[address] [facility] Coding Summary CODING DATE: [facility] STATUS: Home PAYOR: Medicaid HMO ADMIT DX: REASON FOR VISIT DX: R10.9 Unspecified abdominal pain FINAL DX: PRINCIPAL: K29.70 Gastritis, unspecified, without bleeding SECONDARY: R82.90 Unspecified abnormal findings in urine F43.9 Reaction to severe stress, unspecified PROCEDURES DOCTOR NAME DATE NOTE: The code number assigned matches the documented diagnosis and / or procedure in the patient's chart. However, the narrative phrase printed from the coding software may appear abbreviated, or result in slightly different terminology. Revised Coded By: Lilliana Neumann Revised Date Saved: 03/15/2017 11:[address] [facility] Coding Summaryon 03-15-2017 Coding Summary CODING DATE: [facility] STATUS: Home PAYOR: Medicaid O ADMIT DX: REASON FOR VISIT DX: R10.9 Unspecified abdominal pain FINAL DX: PRINCIPAL: K29.70 Gastritis, unspecified, without bleeding SECONDARY: R82.90 Unspecified abnormal findings in urine F43.9 Reaction to severe stress, unspecified PROCEDURES DOCTOR NAME DATE NOTE: The code number assigned matches the documented diagnosis and / or procedure in the patient's chart. However, the narrative phrase printed from the coding software may appear abbreviated, or result in slightly different terminology. Coded By: Lilliana Neumann Date Saved: 03/15/2017 11:[address] [facility] Coding Summary CODING DATE: 017 [facility] STATUS: Home PAYOR: Medicaid HMO ADMIT DX: REASON FOR VISIT DX: R10.9 Unspecified abdominal pain FINAL DX: PRINCIPAL: K29.70 Gastritis, unspecified, without bleeding SECONDARY: R82.90 Unspecified abnormal findings in urine F43.9 Reaction to severe stress, unspecified PROCEDURES DOCTOR NAME DATE NOTE: The code number assigned matches the documented diagnosis and / or procedure in the patient's chart. However, the narrative phrase printed from the coding software may appear abbreviated, or result in slightly different terminology. Coded By: Lilliana Neumann Date Saved: 03/15/2017 11:[address] [facility] C Urineon 03-13-2017 C Urine Urine Culture ordere d as a result of parameters set on specific urine dip and urine microsopic results. Mixed skin, or urogenital zeny. Clinically insignificant Normal [facility] Comment on above: Performed By: #### 5 [id number], [id number], [id number] ####[facility] (DEFAULT)[address] [place] [address] .Auto Diff 1on 03-11-2017 Auto Baso % 0.2 % Normal 0.2-2.0 [facility] Comment on above: Performed By: #### 1 [id number], 1109189, 90187629, 7610216, 2859423937, [id number] ####[facility] (DEFAULT)[address] [place] [address] Auto Coamo % 9 % Normal 1-12 [facility] Comment on above: Performed By: #### 1 [id number], 8630325, 47353331, 7477126, 0586793062, 338146489 ####[facility] (DEFAULT)[address] [place] [address]5868 Auto Neut % 77 % Normal 44-88 [facility] Comment on above: Performed By: #### 1 [id number], 3073522, 01272151, 0664679, 5376407579, 819884743 ####[facility] (DEFAULT)[address] [place] [address] Baso Abs# 0.0 x10 Normal 0.0-0.2 [facility] Comment on above: Performed By: #### 1 [id number], 6459738, 74865039, 9107567, 7285356854, 080417110 ####[facility] (DEFAULT)[address] [place] [address] Eos Abs# 0.3 x10 Normal 0.0-0.4 [facility] Comment on above: Performed By: #### 1 [id number], 1104302, 08760797, 1854751, 9469452024, 687509127 ####[facility] (DEFAULT)[address] [place] [address] Eosinophils/100 leukocytes 2.6 % Normal 0.9-4.0 [facility] Comment on above: Performed By: #### 1 [id number], 0453111, 47816283, 9147421, 2835236572, 859935411 ####[facility] (DEFAULT)[address] [place] [address] Lymphocytes 1.4 x10 Normal 1.3-2.9 [facility] Comment on above: Performed By: #### 1 [id number], 8202024, 62593049, 1908382, 3879069787, 679639440 ####[facility] (DEFAULT)[address] [place] [address] Lymphocytes/100 leukocytes 11 % Low 14-48 [facility] Comment on above: Performed By: #### 1 [id number], 1630465, 88660121, 8759162, 2661016098, 161370701 ####[facility] (DEFAULT)[address] [place] [address] Coamo Abs# 1.2 x10 High 0.0-0.8 [facility] Comment on above: Performed By: #### 1 [id number], 5535611, 53360945, 6394403, 4397681354, 398999775 ####[facility] (DEFAULT)[address] [place] [address] Neut Abs# 10.0 x10 High 1.5-9.2 [facility] Comment on above: Performed By: #### 1 280460060, 4415869, 19455733, 0712015, 5569087070, 208254773 ####[facility] (DEFAULT)[address] [place] [address] CBC w/ Auto Diffon 7 Erythrocyte distribution width Auto Ratio (RBC) 12.1 % Normal 11.5-15.0 [facility] Comment on above: Performed By: #### 1 [id number], 0665624, 65245566, 3601076, 3542998405, 991211884 ####[facility] (DEFAULT)[address] [place] [address] Erythrocytes (RBC) 4.72 x10 Normal 3.70-5.30 [facility] Comment on above: Performed By: #### 1 [id number], 7003309, 06891920, 6814847, 3148666964, 346706836 ####[facility] (DEFAULT)[address] [place] [address] Hematocrit (HCT) 38.7 % Normal 33.7-40.4 [facility] Comment on above: Performed By: #### 1 316783840, 5426443, 36185761, 7594992, 4088904778, 606418530 ####[facility] (DEFAULT)[address] [place] [address] Hemoglobin mass conc (Bld) 14.1 g/dL Normal 11.3-15.9 [facility] Comment on above: Performed By: #### 1 376882132, 1796826, 57993982, 3995423, 3937425418, 345159292 ####[facility] (DEFAULT)[address] [place] [address] Man Diff? Auto Normal [facility] Comment on above: Performed By: #### 1 425727310, 7588589, 02410673, 2848626, 2003069228, 103912688 ####[facility] (DEFAULT)[address] [place] [address] MCH 30 pg Normal 24-34 [facility] Comment on above: Performed By: #### 1 508649284, 7516072, 52756904, 0478654, 9504490878, 272351790 ####[facility] (DEFAULT)[address] [place] [address] MCHC mass conc (RBC) 36 g/dL Normal 26-37 [facility] Comment on above: Performed By: #### 1 442380140, 7880334, 89880688, 8292859, 1365489036, 852932171 ####[facility] (DEFAULT)[address] [place] [address] MCV 82 fL Normal 81-100 [facility] Comment on above: Performed By: #### 1 137379918, 9032948, 77638747, 2180852, 8636117788, 781213635 ####[facility] (DEFAULT)[address] [place] [address] Platelet mean volume (PMV) 8.7 fL Normal 6.3-10.2 [facility] Comment on above: Performed By: #### 1 086410535, 4151184, 56604131, 2996867, 1855787978, 652607183 ####[facility] (DEFAULT)[address] [place] [address] Platelets 219 x10 Normal 138-427 [facility] Comment on above: Performed By: #### 1 421644237, 8149662, 28021795, 5147883, 4504294078, 174171783 ####[facility] (DEFAULT)[address] [place] [address] WBC (Leukocytes) 12.9 x10 Invalid Interpretation Code [facility] Comment on above: Performed By: #### 1 [id number], 2891075, 34191441, 6866946, 4536367515, 758804769 ####[facility] (DEFAULT)[address] [place] [address] Standardon 03-11-2017 eGFR (non-black) GFR not calculated f or patients under 18 years of age. Invalid Interpretation Code [facility] Comment on above: Performed By: #### 1 [id number], 0421965, 60319241, 7199838, 8823053369, 383771638 ####[facility] (DEFAULT)[address] [place] [address] Albumin 4.6 g/dL Normal 3.1-4.8 [facility] Comment on above: Performed By: #### 1 286223565, 4573213, 40752803, 0364683, 4651867561, 209136819 ####[facility] (DEFAULT)[address] [place] [address] Albumin/Globulin Ratio 1.8 {ratio} Normal 1.4-2.6 [facility] Comment on above: Performed By: #### 1 020718403, 7275562, 09127424, 1196860, 1032346854, 745028866 ####[facility] (DEFAULT)[address] [place] [address] Alk Phos 71 IU/L Normal 32-91 [facility] Comment on above: Performed By: #### 1 997117618, 3854238, 15611649, 1605953, 2376435843, 020659237 ####[facility] (DEFAULT)[address] [place] [address] ALT/SGPT 16.0 IU/L Normal 8.0-29.0 [facility] Comment on above: Performed By: #### 1 213654697, 1942878, 20091251, 4766846, 1420514348, 380125135 ####[facility] (DEFAULT)[address] [place] [address] Anion gap 12.0 mmol/L Normal 5.0-19.0 [facility] Comment on above: Performed By: #### 1 665275793, 1951316, 99984994, 6288039, 5631769695, 554633289 ####[facility] (DEFAULT)[address] [place] [address] AST/SGOT 16 IU/L Normal 14-37 [facility] Comment on above: Performed By: #### 1 811132311, 2444130, 85273788, 5647579, 7033118449, 576590005 ####[facility] (DEFAULT)[address] [place] [address] Bili Total 1.8 mg/dL Normal 0.0-2.0 [facility] Comment on above: Performed By: #### 1 408508750, 1955150, 16004324, 5595880, 3128533194, 884840752 ####[facility] (DEFAULT)[address] [place] [address] BUN/Creatinine Ratio 22.0 mg/mg High 4.6-16.2 [facility] Comment on above: Performed By: #### 1 029050720, 6954684, 22881231, 3474012, 3468338004, 663664096 ####[facility] (DEFAULT)[address] [place] [address] Calcium 9.2 mg/dL Normal 8.9-10.3 [facility] Comment on above: Performed By: #### 1 726637454, 7593918, 25172579, 4009506, 2103655346, 622320784 ####[facility] (DEFAULT)[address] [place], [place] [address] Chloride 106 mmol/L Normal 101-111 [facility] Comment on above: Performed By: #### 1 012607761, 8507725, 04702973, 6037456, 5760994469, 626803016 ####[facility] (DEFAULT)[address] [place] [address] CO2 21 mmol/L Normal 21-32 [facility] Comment on above: Performed By: #### 1 688648655, 0356714, 41189932, 0423202, 9724713258, 922435084 ####[facility] (DEFAULT)[address] [place] [address] Creatinine 0.87 mg/dL Normal 0.30-1.00 [facility] Comment on above: Performed By: #### 1 833753314, 8352463, 34619948, 6569840, 8915095377, 147485319 ####[facility] (DEFAULT)[address] [place] [address] Globulin 2.6 g/dL Normal 1.5-4.3 [facility] Comment on above: Performed By: #### 1 686704862, 7239710, 31789076, 5414186, 0928761221, 525164862 ####[facility] (DEFAULT)[address] [place] [address]68 Glucose mass conc 93.0 mg/dL Normal 56.0-144.0 [facility] Comment on above: Performed By: #### 1 455390137, 4257334, 85888458, 5903615, 1526015441, 786855728 ####[facility] (DEFAULT)[address] [place] [address] 24290 Osmolality 272 mOsm/L Invalid Interpretation Code [facility] Comment on above: Performed By: #### 1 [id number], 7186028, 71657665, 5916857, 8155927191, 130233584 ####[facility] (DEFAULT)[address] [place] [address] Potassium molar conc 3.8 mmol/L Normal 3.6-5.1 [facility] Comment on above: Performed By: #### 1 928712360, 1031725, 88567380, 0844381, 4812970864, 133755556 ####[facility] (DEFAULT)[address] [place] [address]3226 Protein 7.2 g/dL Normal 6.1-8.0 [facility] Comment on above: Performed By: #### 1 358301237, 1887392, 35975665, 5914171, 5218660140, 649916177 ####[facility] (DEFAULT)[address] [place] [address] Sodium 135.0 mmol/L Low 136.0-144. 0 [facility] Comment on above: Performed By: #### 1 030163450, 4934776, 44610381, 0820670, 6709308715, 203041257 ####[facility] (DEFAULT)[address] [place] [address] Urea nitrogen 19 mg/dL Normal 03-17 [facility] Comment on above: Performed By: #### 1 208147824, 8999405, 57934346, 4171344, 6469060600, 923761632 ####[facility] (DEFAULT)[address] [place] [address] ED Clinical Summaryon 2016 ED Clinical Summary [facility] - Emergency [id number] [place] [address] ed Clinical SummaryPERSON INFORMATIONName: DELFIN PÉREZ Age: 16 Years Sex: FEMALEDOB: [birth year] MRN: Acct#:Visit Reason: Abdominal pain; ABD PAIN Arrival:03/11/17 03:32:00 Discharge: 03/11/17 06:44:00LOS: 000 03:12 Check In: 03/11/17 03:32:00 Checkout:03/11/17 06:44:00Address:[address] [facility] [address]DCD: Simba Durbin INFORMATIONProvider Role Assigned UnassignedMosanket, Magdalena Valdes ED Nurse 03/11/17 03:52:16Yoan Cisneros MD ED Provider 03/11/17 04:26:12VITALS INFORMATIONVital Sign Triage LatestTemperature TympanicTemperature Temporal ArteryPulse Rate 86 bpm 86 bpmO2 Sat 100 % 100 %Respiratory Rate 18 br/min 18 br/minBlood Pressure 126 mmHg/71 mmHg 126 mmHg/71 mmHgMEDICAL INFORMATIONMedications Given:Medication Dose RouteGI Cocktail 1 EA POfamotidine 20 mg POcephalexin 500 mg POAllergy Information:No known allergiesPHYSICIAN DOCUMENTATIONPatient: DELFIN PÉREZ : 16 years Sex: FEMALE : [birth year]Associated Diagnoses: Abnormal urinalysis; Gastritis; StressAuthor: Yoan Cisneros MDBasic InformationTime seen: Date & time 03/11/17 04:12:00.History of Present IllnessRoom #7. Patient presents with one-day duration of gastric pain. She also has some right suprapubic pain. No fatty food intolerance. She tried taking some Pepto-Bismol and then she threw this up immediately but says that she is bad with liquid medications. She then got a second dose of Pepto-Bismol down and an ibuprofen and felt better. No diarrhea. No cough or fever or sore throat. She normally does not have gastritis like symptoms but is under a lot of stress with work and school.Medical management medical problems. No prescription medications.Depo shots for controlPsychosocial: She is accompanied by her mother.Review of SystemsConst.: -Fever or Chills: NoENT: - Throat: pain: NoPulm.: - SOB: No - Cough: NoCard.: - Pain or Pressure: NoGU: No dysuria or dyspareunia. Menstruation is irregular and just spotting. No abnormal dischargeNeuro.: Dizziness or Headache: NoAllergies: -: NoPhysical Examination Vital SignsVital Signs03/11/17 03:50 EDT Temperature Oral 36.8 DegC Peripheral Pulse Rate 86 bpm Respiratory Rate 18 br/min Systolic Blood Pressure 126 mmHg Diastolic Blood Pressure 71 mmHg SpO2 100 % Oxygen Therapy Room air.CONST: -Well-developed well-nourished. -Acute distress: Mild -Vitals: reviewed.SKIN: -Gross abnormalities: NoEYES: -EOM intact, SAMANTA: -Sclera conjunctiva: Unremarkable.ENT: - Normal pharynx pink and moist.NECK: -Supple ([id number]): non-tender.CARD: -Rate and rhythm: Regular -Edema: No -Calf pain: NoRESP: -Respiratory effort and chest excursion with respirations: Normal -Breath sounds equal bilaterally: Clear -Wheezes: No -Rales: NoBACK: -Signs of pain with movement: NoABD: -Distended: No -Bruits: No -Bowel sounds: Normal. -Tender in the epigastrium moderately. No organomegaly. McBurney's point is nontender. Mild tenderness right suprapubic region.EXT: Gross appearance and use of all four extremities: UnremarkableNEURO: -Patient: alert -Gross CN or Focal Neuro deficits: No -Oriented to: person, place and time. -Appearance and judgment: appropriate.Medical Decision MakingResults review: Lab results : Lab Vkvafzbcm47/20/17 05:20 EDT UA Color YELLOW UA Clarity CLOUDY UA Glucose NEGATIVE UA Ketones 40 UA Spec Grav 1.025 UA Blood TRACE UA pH 6.0 UA Protein NEGATIVE mg/dL UA Urobilinogen 0.2 mg/dL UA Nitrite NEGATIVE UA Leuk Est NEGATIVE UA Bilirubin NEGATIVE Urine Source Clean Catch Micro? Indicated Culture? Indicated UA WBC 5-10 UA RBC 0-5 UA Squam Epi Moderate UA Bacteria 3+ UA Mucous 1+03/11/17 05:02 EDT Sodium Level 135.0 mmol/L LOW Potassium Level 3.8 mmol/L Chloride Level 106 mmol/L CO2 21 mmol/L Anion Gap 12.0 mmol/L Glucose Level 93.0 mg/dL BUN 19 mg/dL Creatinine Level 0.87 mg/dL BUN/Creat Ratio 22.0 HI GFR Interp GFR not calculated for patients under 18 years of age. Calcium Level 9.2 mg/dL Bili Total 1.8 mg/dL Alk Phos 71 IU/L AST/SGOT 16 IU/L ALT/SGPT 16.0 IU/L Protein Total 7.2 gm/dL Albumin Level 4.6 gm/dL Globulin 2.6 gm/dL A/G Ratio 1.8 Lipase Level 24.0 IU/L Osmolality 272 mOsm/L NA Test Serum Qual Negative WBC 12.9 x103/mcL HI RBC 4.72 x106/mcL Hgb 14.1 gm/dL Hct 38.7 % MCV 82 fL MCH 30 pg MCHC 36 gm/dL RDW 12.1 % Platelet 219 x103/mcL MPV 8.7 fL Auto Neut % 77 % Auto Lymph % 11 % LOW Auto Coamo % 9 % Auto Eos % 2.6 % Auto Baso % 0.2 % Neut Abs# 10.0 x103/mcL HI Lymph Abs# 1.4 x103/mcL Coamo Abs# 1.2 x103/mcL HI Eos Abs# 0.3 x103/mcL Baso Abs# 0.0 x103/mcL.Reexamination/ ReevaluationPatient feels much better after GI cocktail.Reexamined at improvement minimal tenderness in epigastrium. No tenderness over McBurney's point and minimal over the right suprapubic region.Chemistries unremarkable minimal elevation in WBC count. Urinalysis with bacteria but negative nitrate and leukocyte esterase negative. Probably early UTI. We'll treat with short course of antibiotics. The patient has gastritis from stress and Motrin. She had rapid relief from the GI cocktail. We will place her on short course of Pepcid. Told her to push fluids since she didn't want an IV.Impression and PlanDiagnosisAbnormal urinalysis ([id number] R82.90, Discharge, Medical)Gastritis ([id number]-SY K29.70, Discharge, Medical)Stress (NAP25-NU F43.9, Discharge, Medical)PlanCondition: Improved.Disposition: Discharged: to home.Prescriptions: Launch prescriptionsPharmacy:Pepcid 20 mg oral tablet (Prescribe): 20 mg, 1 tab(s), PO, BID, for 7 day(s), 14 tab(s), 0 Refill(s), Launch prescriptionsPharmacy:Pepcid (Order): 20 mg, PO, Once, Launch prescriptionsPharmacy:Keflex 500 mg oral capsule (Prescribe): 500 mg, 1 cap(s), PO, TID, for 3 day(s), 9 cap(s), 0 Refill(s), Launch prescriptionsPharmacy:Keflex (Order): 500 mg, PO, Once.Patient was given the following educational materials: Gastritis, Adult, Mvwi-no-Betg, Stress and Stress Management, Urinary Tract Infection, Adult, Xxam-tz-Evhe, Urinary Tract Infection, Adult, Jlhj-vz-Okxo, Stress and Stress Management, Gastritis, Adult, Vzvf-vf-Sbvd.Follow up with: Simba Durbin Within 3 to 5 days Follow-up with your family physician this week. Follow-up Sunday if any symptoms remain. Clear liquids only first Today. Return if abdominal pain gets worse, fever or vomiting..Counseled: Patient, Family.DISCHARGE INFORMATION:Discharge Disposition: HomeDischarge Location: HomePATIENT EDUCATION INFORMATIONInstructions: Urinary Tract Infection, Adult, Jahu-or-Ovcr; Stress and Stress Management; Gastritis, Adult, Zmhs-ay-CaiwCswrme-Up:With: Address: When:Simba Durbin [address] [place], [place] [id number] Business (1) Within 3 to 5 daysComments:Follow-up with your family physician this week. Follow-up Sunday if any symptoms remain. Clear liquids only first Today. Return if abdominal pain gets worse, fever or vomiting.DIAGNOSIS:Abnormal urinalysis; Gastritis; StressComment: Normal [facility] ED Note - Physicianon 2016 ED Note - Physician Patient: DELFIN PÉREZ : 16 years Sex: FEMALE : [birth year]Associated Diagnoses: Abnormal urinalysis; Gastritis; StressAuthor: Yoan Cisneros CABasi InformationTime seen: Date & time 03/11/17 04:12:00.History of Present IllnessRoom #7. Patient presents with one-day duration of gastric pain. She also has some right suprapubic pain. No fatty food intolerance. She tried taking some Pepto-Bismol and then she threw this up immediately but says that she is bad with liquid medications. She then got a second dose of Pepto-Bismol down and an ibuprofen and felt better. No diarrhea. No cough or fever or sore throat. She normally does not have gastritis like symptoms but is under a lot of stress with work and school.Medical management medical problems. No prescription medications.Depo shots for controlPsychosocial: She is accompanied by her mother.Review of SystemsConst.: -Fever or Chills: NoENT: - Throat: pain: NoPulm.: - SOB: No - Cough: NoCard.: - Pain or Pressure: NoGU: No dysuria or dyspareunia. Menstruation is irregular and just spotting. No abnormal dischargeNeuro.: Dizziness or Headache: NoAllergies: -: NoPhysical Examination Vital SignsVital Signs03/11/17 03:50 EDT Temperature Oral 36.8 DegC Peripheral Pulse Rate 86 bpm Respiratory Rate 18 br/min Systolic Blood Pressure 126 mmHg Diastolic Blood Pressure 71 mmHg SpO2 100 % Oxygen Therapy Room air.CONST: -Well-developed well-nourished. -Acute distress: Mild -Vitals: reviewed.SKIN: -Gross abnormalities: NoEYES: -EOM intact, SAMANTA: -Sclera conjunctiva: Unremarkable.ENT: - Normal pharynx pink and moist.NECK: -Supple (mejk-ky-gcyqm): non-tender.CARD: -Rate and rhythm: Regular -Edema: No -Calf pain: NoRESP: -Respiratory effort and chest excursion with respirations: Normal -Breath sounds equal bilaterally: Clear -Wheezes: No -Rales: NoBACK: -Signs of pain with movement: NoABD: -Distended: No -Bruits: No -Bowel sounds: Normal. -Tender in the epigastrium moderately. No organomegaly. McBurney's point is nontender. Mild tenderness right suprapubic region.EXT: Gross appearance and use of all four extremities: UnremarkableNEURO: -Patient: alert -Gross CN or Focal Neuro deficits: No -Oriented to: person, place and time. -Appearance and judgment: appropriate.Medical Decision MakingResults review: Lab results : Lab Ltysznvjw18/20/17 05:20 EDT UA Color YELLOW UA Clarity CLOUDY UA Glucose NEGATIVE UA Ketones 40 UA Spec Grav 1.025 UA Blood TRACE UA pH 6.0 UA Protein NEGATIVE mg/dL UA Urobilinogen 0.2 mg/dL UA Nitrite NEGATIVE UA Leuk Est NEGATIVE UA Bilirubin NEGATIVE Urine Source Clean Catch Micro? Indicated Culture? Indicated UA WBC 5-10 UA RBC 0-5 UA Squam Epi Moderate UA Bacteria 3+ UA Mucous 1+03/11/17 05:02 EDT Sodium Level 135.0 mmol/L LOW Potassium Level 3.8 mmol/L Chloride Level 106 mmol/L CO2 21 mmol/L Anion Gap 12.0 mmol/L Glucose Level 93.0 mg/dL BUN 19 mg/dL Creatinine Level 0.87 mg/dL BUN/Creat Ratio 22.0 HI GFR Interp GFR not calculated for patients under 18 years of age. Calcium Level 9.2 mg/dL Bili Total 1.8 mg/dL Alk Phos 71 IU/L AST/SGOT 16 IU/L ALT/SGPT 16.0 IU/L Protein Total 7.2 gm/dL Albumin Level 4.6 gm/dL Globulin 2.6 gm/dL A/G Ratio 1.8 Lipase Level 24.0 IU/L Osmolality 272 mOsm/L NA Test Serum Qual Negative WBC 12.9 x103/mcL HI RBC 4.72 x106/mcL Hgb 14.1 gm/dL Hct 38.7 % MCV 82 fL MCH 30 pg MCHC 36 gm/dL RDW 12.1 % Platelet 219 x103/mcL MPV 8.7 fL Auto Neut % 77 % Auto Lymph % 11 % LOW Auto Coamo % 9 % Auto Eos % 2.6 % Auto Baso % 0.2 % Neut Abs# 10.0 x103/mcL HI Lymph Abs# 1.4 x103/mcL Coamo Abs# 1.2 x103/mcL HI Eos Abs# 0.3 x103/mcL Baso Abs# 0.0 x103/mcL.Reexamination/ ReevaluationPatient feels much better after GI cocktail.Reexamined at improvement minimal tenderness in epigastrium. No tenderness over McBurney's point and minimal over the right suprapubic region.Chemistries unremarkable minimal elevation in WBC count. Urinalysis with bacteria but negative nitrate and leukocyte esterase negative. Probably early UTI. We'll treat with short course of antibiotics. The patient has gastritis from stress and Motrin. She had rapid relief from the GI cocktail. We will place her on short course of Pepcid. Told her to push fluids since she didn't want an IV.Impression and PlanDiagnosisAbnormal urinalysis ([id number]-HM R82.90, Discharge, Medical)Gastritis ([id number]-LE K29.70, Discharge, Medical)Stress ([id number]-QY F43.9, Discharge, Medical)PlanCondition: Improved.Disposition: Discharged: to home.Prescriptions: Launch prescriptionsPharmacy:Pepcid 20 mg oral tablet (Prescribe): 20 mg, 1 tab(s), PO, BID, for 7 day(s), 14 tab(s), 0 Refill(s), Launch prescriptionsPharmacy:Pepcid (Order): 20 mg, PO, Once, Launch prescriptionsPharmacy:Keflex 500 mg oral capsule (Prescribe): 500 mg, 1 cap(s), PO, TID, for 3 day(s), 9 cap(s), 0 Refill(s), Launch prescriptionsPharmacy:Keflex (Order): 500 mg, PO, Once.Patient was given the following educational materials: Gastritis, Adult, Bwdd-za-Lxft, Stress and Stress Management, Urinary Tract Infection, Adult, Anik-pg-Uepx, Urinary Tract Infection, Adult, Eayw-lb-Xxpa, Stress and Stress Management, Gastritis, Adult, Xjnl-te-Rzvn.Follow up with: Simba Durbin Within 3 to 5 days Follow-up with your family physician this week. Follow-up Sunday if any symptoms remain. Clear liquids only first Today. Return if abdominal pain gets worse, fever or vomiting..Counseled: Patient, Family.[Electronically Signed on: 03/11/2017 06:51 EDT] Yoan Cisneros MD[Verified on: 03/11/2017 06:51 EDT] Yoan Cisneros MD [facility] ED Note-Nursingon 03-11-2017 ED Note-Nursing Discharge and follow -up instructions reviewed with patient and mother, including criteria/conditions for return to ED if necessary. Prescriptions (2) and medication instructions also reviewed; pt and mother verbalize understanding of all instructions, offer no questions. Patient without c/o or s/s distress; ambulated out of ED without incidence, gait steady. [facility] ED Note-Nursing Pt states she is fee ling better, is ready to go home. Continuing to monitor. [facility] ED Note-Nursing Pt is very apprehens arnulfo about IV, Dr. Cisneros notified; states that IV initiation may be deferred for the time being. [facility] ED Patient Education Noteon 08-20-2017 ED Patient Education Note Education MaterialsBehavioral HealthStress and Stress ManagementStress is a normal reaction to life events. It is what you feel when life demands more than you are used to or more than you can handle. Some stress can be useful. For example, the stress reaction can help you catch the last bus of the day, study for a test, or meet a deadline at work. But stress that occurs too often or for too long can cause problems. It can affect your emotional health and interfere with relationships and normal daily activities. Too much stress can weaken your immune system and increase your risk for physical illness. If you already have a medical problem, stress can make it worse.CAUSESAll sorts of life events may cause stress. An event that causes stress for one person may not be stressful for another person. Major life events commonly cause stress. These may be positive or negative. Examples include losing your job, moving into a new home, getting , having a baby, or losing a loved one. Less obvious life events may also cause stress, especially if they occur day after day or in combination. Examples include working long hours, driving in traffic, caring for children, being in debt, or being in a difficult relationship.SIGNS AND SYMPTOMSStress may cause emotional symptoms including, the following:? Anxiety. This is feeling worried, afraid, on edge, overwhelmed, or out of control.? Anger. This is feeling irritated or impatient.? Depression. This is feeling sad, down, helpless, or guilty.? Difficulty focusing, remembering, or making decisions.Stress may cause physical symptoms, including the following:? Aches and pains. These may affect your head, neck, back, stomach, or other areas of your body.? Tight muscles or clenched jaw.? Low energy or trouble sleeping.?Stress may cause unhealthy behaviors, including the following:? Eating to feel better (overeating) or skipping meals.? Sleeping too little, too much, or both.? Working too much or putting off tasks (procrastination).? Smoking, drinking alcohol, or using drugs to feel better.DIAGNOSISStress is diagnosed through an assessment by your health care provider. Your health care provider will ask questions about your symptoms and any stressful life events.?Your health care provider will also ask about your medical history and may order blood tests or other tests. Certain medical conditions and medicine can cause physical symptoms similar to stress. ?Mental illness can cause emotional symptoms and unhealthy behaviors similar to stress. Your health care provider may refer you to a mental health professional for further evaluation.TREATMENTStress management is the recommended treatment for stress.?The goals of stress management are reducing stressful life events and coping with stress in healthy ways.Techniques for reducing stressful life events include the following:? Stress identification. Self-monitor for stress and identify what causes stress for you. These skills may help you to avoid some stressful events.? Time management. Set your priorities, keep a calendar of events, and learn to say no. These tools can help you avoid making too many commitments.Techniques for coping with stress include the following: ? Rethinking the problem. Try to think realistically about stressful events rather than ignoring them or overreacting. Try to find the positives in a stressful situation rather than focusing on the negatives.? Exercise. Physical exercise can release both physical and emotional tension. The hawley is to find a form of exercise you enjoy and do it regularly.? Relaxation techniques. These relax the body and mind. Examples include yoga, meditation, ramon chi, biofeedback, deep breathing, progressive muscle relaxation, listening to music, being out in nature, journaling, and other hobbies. Again, the hawley is to find one or more that you enjoy and can do regularly.? Healthy lifestyle. Eat a balanced diet, get plenty of sleep, and do not smoke. Avoid using alcohol or drugs to relax.? Strong support network. Spend time with family, friends, or other people you enjoy being around.?Express your feelings and talk things over with someone you trust.Counseling or talk?therapy with a mental health professional may be helpful if you are having difficulty managing stress on your own. Medicine is typically not recommended for the treatment of stress.?Talk to your health care provider if you think you need medicine for symptoms of stress.HOME CARE INSTRUCTIONS? Keep all follow-up visits as directed by your health care provider.? Take all medicines as directed by your health care provider.SEEK MEDICAL CARE IF:? Your symptoms get worse or you start having new symptoms.? You feel overwhelmed by your problems and can no longer manage them on your own.SEEK IMMEDIATE MEDICAL CARE IF:? You feel like hurting yourself or someone else.This information is not intended to replace advice given to you by your health care provider. Make sure you discuss any questions you have with your health care provider.Document Released: 01/02/2002 Document Revised: 08/04/2016 Document Reviewed: 03/03/2014[employer] Interactive Patient Education ?2016 [employer].Dhvf-at-VozkFbzdhqf Tract InfectionA urinary tract infection (UTI) can occur any place along the urinary tract. The tract includes the kidneys, ureters, bladder, and urethra. A type of germ called bacteria often causes a UTI. UTIs are often helped with antibiotic medicine. HOME CARE? If given, take antibiotics as told by your doctor. Finish them even if you start to feel better.? Drink enough fluids to keep your pee (urine) clear or pale yellow.? Avoid tea, drinks with caffeine, and bubbly (carbonated) drinks.? Pee often. Avoid holding your pee in for a long time.? Pee before and after having sex (intercourse).? Wipe from front to back after you poop (bowel movement) if you are a woman. Use each tissue only once.GET HELP RIGHT AWAY IF:? You have back pain.? You have lower belly (abdominal) pain.? You have chills.? You feel sick to your stomach (nauseous).? You throw up (vomit).? Your burning or discomfort with peeing does not go away.? You have a fever.? Your symptoms are not better in 3 days.MAKE SURE YOU:? Understand these instructions.? Will watch your condition.? Will get help right away if you are not doing well or get worse.This information is not intended to replace advice given to you by your health care provider. Make sure you discuss any questions you have with your health care provider.Document Released: 12/25/2008 Document Revised: 07/30/2015 Document Reviewed: 05/29/2016[employer] Interactive Patient Education ?2016 [place] [employer] InvestorGastritis, AdultGastritis is soreness and puffiness (inflammation) of the lining of the stomach. If you do not get help, gastritis can cause bleeding and sores (ulcers) in the stomach. HOME CARE? Only take medicine as told by your doctor.? If you were given antibiotic medicines, take them as told. Finish the medicines even if you start to feel better.? Drink enough fluids to keep your pee (urine) clear or pale yellow.? Avoid foods and drinks that make your problems worse. Foods you may want to avoid include:? Caffeine or alcohol.? Chocolate.? Mint.? Garlic and onions.? Spicy foods.? [place] fruits, including oranges, humberto, or limes.? Food containing tomatoes, including sauce, chili, salsa, and pizza.? Fried and fatty foods.? Eat small meals throughout the day instead of large meals.GET HELP RIGHT AWAY IF:? You have black or dark red poop (stools).? You throw up (vomit) blood. It may look like coffee grounds.? You cannot keep fluids down.? Your belly (abdominal) pain gets worse.? You have a fever.? You do not feel better after 1 week.? You have any other questions or concerns.MAKE SURE YOU:? Understand these instructions.? Will watch your condition.? Will get help right away if you are not doing well or get worse.This information is not intended to replace advice given to you by your health care provider. Make sure you discuss any questions you have with your health care provider.Document Released: 12/25/2008 Document Revised: 09/30/2012 Document Reviewed: 04/01/2016[employer] Interactive Patient Education ?2016 [employer]. Normal [facility] ED Patient Summaryon 017 ED Patient Summary [facility] - Emergency [address] [place] [address] pATIENT DISCHARGE INSTRUCTIONSPatient InformationName: DELFIN PÉREZ Age: 16 YearsDate of : [birth year]MRN: [id number] For Visit: Abdominal pain; ABD PAINArrival Time: 03/11/17 03:32:00Phone: Primary Care Physician: Simba Durbin Physician: Yoan Cisneros MDComment:Visit Diagnosis:Diagnoses This Visit Abdominal pain ([id number]) Abnormal urinalysis (R82.90) Gastritis (K29.70) Stress (F43.9)If you received any narcotics, sedation, or any other medication that causes drowsiness for the next 24 hours, unless otherwise directed:? Do not drive a car.? Do not operate machinery such as power tools, lawn mowers, drills, sewing machines, or stoves? Avoid alcoholic beverages and drugs for allergies, nerves, or sleep? Do not make important personal or business decisions or sign any legal documentsWith: Address: When:Simba Durbin [address] [place], [place] [address] Business (1) Within 3 to 5 daysComments:Follow-up with your family physician this week. Follow-up Sunday if any symptoms remain. Clear liquids only first Today. Return if abdominal pain gets worse, fever or vomiting.Medication Information:The exam and treatment you received today in the [facility] Emergency Department were for an urgent problem and are not intended as complete care. It is important for you to follow up with a doctor, nurse practitioner, or physician?s nursing home assistant administrator for ongoing care. If your symptoms become worse or you do not improve as expected and you are unable to reach your usual health care provider, you should return to the Emergency Department, we are available 24 hours a day.For those patients who have received Radiology results, the interpretation of your X-ray as given to you by our Emergency Department physician is only a preliminary report. The Radiologist will review your films and if there is a change in the diagnosis you will be notified by phone. Please make sure you have provided a working phone number so we can reach you if necessary.In the event that you had a lab culture while you were a patient in the Emergency Department, you will be notified by phone if there is a need to change your antibiotic. Please make sure you have provided a working phone number so we can reach you if necessary.[facility] Emergency Department has provided you with a complete list of medications post discharge. Please inform your terminal system operator/provider of your visit and for further instruction on these medications. Any specific questions regarding your chronic medications and dosages should be discussed with your primary care physician(s) and/or pharmacist. New MedicationsPrinted Prescriptionscephalexin (Keflex 500 mg oral capsule) 1 cap Oral 3 times a day for 3 Days. Refills: 0.famotidine (Pepcid 20 mg oral tablet) 1 tab(s) Oral 2 times a day for 7 Days. Refills: 0.Medications to Continue That Have Not ChangedOther MedicationsmedroxyPROGESTERone (Depo-Provera) 400 Milligram Intramuscular.Visit InformationAllergies:Substance Reaction Symptoms Type CommentsNo known allergies DrugVital Signs: Vitals and Measurements this Visit (last charted value for your 03/11/2017 visit) Vital Signs This Visit Temperature Oral: 36.8 DegC Peripheral Pulse Rate: 86 bpm Respiratory Rate: 18 br/min Systolic Blood Pressure: 126 mmHg Diastolic Blood Pressure: 71 mmHg SpO2: 100 % Oxygen Therapy: Room air Measurements This Visit Height/Length Dosin.480 cm Height/Length Estimated: 157.480 cm Weight Dosin.500 kg Weight Estimated: 63.500 kgProblems List:Problem Onset CommentsNo Problems foundPatient EducationUrinary Tract InfectionA urinary tract infection (UTI) can occur any place along the urinary tract. The tract includes the kidneys, ureters, bladder, and urethra. A type of germ called bacteria often causes a UTI. UTIs are often helped with antibiotic medicine. HOME CARE? If given, take antibiotics as told by your doctor. Finish them even if you start to feel better.? Drink enough fluids to keep your pee (urine) clear or pale yellow.? Avoid tea, drinks with caffeine, and bubbly (carbonated) drinks.? Pee often. Avoid holding your pee in for a long time.? Pee before and after having sex (intercourse).? Wipe from front to back after you poop (bowel movement) if you are a woman. Use each tissue only once.GET HELP RIGHT AWAY IF:? You have back pain.? You have lower belly (abdominal) pain.? You have chills.? You feel sick to your stomach (nauseous).? You throw up (vomit).? Your burning or discomfort with peeing does not go away.? You have a fever.? Your symptoms are not better in 3 days.MAKE SURE YOU:? Understand these instructions.? Will watch your condition.? Will get help right away if you are not doing well or get worse.This information is not intended to replace advice given to you by your health care provider. Make sure you discuss any questions you have with your health care provider.Document Released: 12/25/2008 Document Revised: 07/30/2015 Document Reviewed: 05/29/2016[employer] Interactive Patient Education ?2016 [employer]Stress and Stress ManagementStress is a normal reaction to life events. It is what you feel when life demands more than you are used to or more than you can handle. Some stress can be useful. For example, the stress reaction can help you catch the last bus of the day, study for a test, or meet a deadline at work. But stress that occurs too often or for too long can cause problems. It can affect your emotional health and interfere with relationships and normal daily activities. Too much stress can weaken your immune system and increase your risk for physical illness. If you already have a medical problem, stress can make it worse.CAUSESAll sorts of life events may cause stress. An event that causes stress for one person may not be stressful for another person. Major life events commonly cause stress. These may be positive or negative. Examples include losing your job, moving into a new home, getting , having a baby, or losing a loved one. Less obvious life events may also cause stress, especially if they occur day after day or in combination. Examples include working long hours, driving in traffic, caring for children, being in debt, or being in a difficult relationship.SIGNS AND SYMPTOMSStress may cause emotional symptoms including, the following:? Anxiety. This is feeling worried, afraid, on edge, overwhelmed, or out of control.? Anger. This is feeling irritated or impatient.? Depression. This is feeling sad, down, helpless, or guilty.? Difficulty focusing, remembering, or making decisions.Stress may cause physical symptoms, including the following:? Aches and pains. These may affect your head, neck, back, stomach, or other areas of your body.? Tight muscles or clenched jaw.? Low energy or trouble sleeping.?Stress may cause unhealthy behaviors, including the following:? Eating to feel better (overeating) or skipping meals.? Sleeping too little, too much, or both.? Working too much or putting off tasks (procrastination).? Smoking, drinking alcohol, or using drugs to feel better.DIAGNOSISStress is diagnosed through an assessment by your health care provider. Your health care provider will ask questions about your symptoms and any stressful life events.?Your health care provider will also ask about your medical history and may order blood tests or other tests. Certain medical conditions and medicine can cause physical symptoms similar to stress. ?Mental illness can cause emotional symptoms and unhealthy behaviors similar to stress. Your health care provider may refer you to a mental health professional for further evaluation.TREATMENTStress management is the recommended treatment for stress.?The goals of stress management are reducing stressful life events and coping with stress in healthy ways.Techniques for reducing stressful life events include the following:? Stress identification. Self-monitor for stress and identify what causes stress for you. These skills may help you to avoid some stressful events.? Time management. Set your priorities, keep a calendar of events, and learn to say no. These tools can help you avoid making too many commitments.Techniques for coping with stress include the following: ? Rethinking the problem. Try to think realistically about stressful events rather than ignoring them or overreacting. Try to find the positives in a stressful situation rather than focusing on the negatives.? Exercise. Physical exercise can release both physical and emotional tension. The hawley is to find a form of exercise you enjoy and do it regularly.? Relaxation techniques. These relax the body and mind. Examples include yoga, meditation, ramon chi, biofeedback, deep breathing, progressive muscle relaxation, listening to music, being out in nature, journaling, and other hobbies. Again, the hawley is to find one or more that you enjoy and can do regularly.? Healthy lifestyle. Eat a balanced diet, get plenty of sleep, and do not smoke. Avoid using alcohol or drugs to relax.? Strong support network. Spend time with family, friends, or other people you enjoy being around.?Express your feelings and talk things over with someone you trust.Counseling or talk?therapy with a mental health professional may be helpful if you are having difficulty managing stress on your own. Medicine is typically not recommended for the treatment of stress.?Talk to your health care provider if you think you need medicine for symptoms of stress.HOME CARE INSTRUCTIONS? Keep all follow-up visits as directed by your health care provider.? Take all medicines as directed by your health care provider.SEEK MEDICAL CARE IF:? Your symptoms get worse or you start having new symptoms.? You feel overwhelmed by your problems and can no longer manage them on your own.SEEK IMMEDIATE MEDICAL CARE IF:? You feel like hurting yourself or someone else.This information is not intended to replace advice given to you by your health care provider. Make sure you discuss any questions you have with your health care provider.Document Released: 01/02/2002 Document Revised: 08/04/2016 Document Reviewed: 03/03/2014[employer] Interactive Patient Education ?2016 [place] [facility] InvestorGastritis, AdultGastritis is soreness and puffiness (inflammation) of the lining of the stomach. If you do not get help, gastritis can cause bleeding and sores (ulcers) in the stomach. HOME CARE? Only take medicine as told by your doctor.? If you were given antibiotic medicines, take them as told. Finish the medicines even if you start to feel better.? Drink enough fluids to keep your pee (urine) clear or pale yellow.? Avoid foods and drinks that make your problems worse. Foods you may want to avoid include:? Caffeine or alcohol.? Chocolate.? Mint.? Garlic and onions.? Spicy foods.? [place] fruits, including oranges, humberto, or limes.? Food containing tomatoes, including sauce, chili, salsa, and pizza.? Fried and fatty foods.? Eat small meals throughout the day instead of large meals.GET HELP RIGHT AWAY IF:? You have black or dark red poop (stools).? You throw up (vomit) blood. It may look like coffee grounds.? You cannot keep fluids down.? Your belly (abdominal) pain gets worse.? You have a fever.? You do not feel better after 1 week.? You have any other questions or concerns.MAKE SURE YOU:? Understand these instructions.? Will watch your condition.? Will get help right away if you are not doing well or get worse.This information is not intended to replace advice given to you by your health care provider. Make sure you discuss any questions you have with your health care provider.Document Released: 12/25/2008 Document Revised: 09/30/2012 Document Reviewed: 04/01/2016[employer] Interactive Patient Education ?2016 [employer]. Viruses or BacteriaWhat?s got you sick?Antibiotics only treat bacterial infections. Viral illnesses cannot be treated with antibiotics. When an antibiotic is not prescribed, ask your healthcare professional for tips on how to relieve symptoms and feel better. Usual CauseIllnessVirusesBacteria Antibiotic NeededCold/Runny Nose NOBronchitis/Chest Cold (in otherwise healthy children and adults) NOWhooping Cough YesFlu NOStrep Throat YesSore Throat (except strep) NOFluid in the middle ear (otitis media with effusion) NOUrinary Tract Infection YesAntibiotics Aren?t Always the Answerwww.cdc.gov/getsmart GET SMART Know When Antibiotics [place]ola.[place]. Department of Health and Human ServicesMarietta Memorial Hospitalers for Disease Control and Prevention March [address] [facility] Extra Blueon 03-11-2017 Tube Collected Yes Invalid Interpretation Code [facility] Comment on above: Performed By: #### 1 [id number], [id number] ####[facility] (DEFAULT)[address] [place] [address] 23940 Lipaseon 03-11-2017 Lipase Level 24.0 IU/L Normal 22.0-51.0 [facility] Comment on above: Performed By: #### 1 [id number], [id number] ####[facility] (DEFAULT)[address] [place] [address]2811 Test Serum 1on Preg Serum Internal Control OK [facility] Comment on above: Performed By: #### 1 [id number], [id number], [id number] ####[facility] (DEFAULT)[address] [place] [address] 63909 Test Serum Qual Negative [facility] Comment on above: Performed By: #### 1 [id number], [id number], [id number], [id number] ####[facility] (DEFAULT)[address] [place] [address] UA [id number] 03-11-2017 UA Bacteria 3+ [facility] Comment on above: Order Comment: Urina lysis Microscopic order added on by Discern Expert Rules system. Performed By: #### 5 [id number], [id number], [id number] ####[facility] (DEFAULT)[address] [place] [address] UA Mucous 1+ [facility] Comment on above: Order Comment: Urina lysis Microscopic order added on by Discern Expert Rules system. Performed By: #### 5 [id number], [id number], [id number] ####[facility] (DEFAULT)[address] [place] [address] UA Squam Epi Moderate [facility] Comment on above: Order Comment: Urina lysis Microscopic order added on by Discern Expert Rules system. Performed By: #### 5 [id number], [id number], [id number] ####[facility] (DEFAULT)[address] [place] [address] UA WBC 5-[address] [facility] Comment on above: Order Comment: Urina lysis Microscopic order added on by Discern Expert Rules system. Performed By: #### 5 [id number], [id number], [id number] ####[facility] (DEFAULT)[address] [place] [address] Urine, erythrocytes 0-[address] [facility] Comment on above: Order Comment: Urina lysis Microscopic order added on by Discern Expert Rules system. Performed By: #### 5 [id number], [id number], [id number] ####[facility] (DEFAULT)[address] [place] [address] UA w Culture if Ind Standard on 03-11-[address] [facility] Comment on above: Performed By: #### 5 [id number], [id number] ####[facility] (DEFAULT)[address] [place] [address] Culture? Indicated Invalid Interpretation Code [facility] Comment on above: Performed By: #### 5 [id number], [id number] ####[facility] (DEFAULT)[address] [place] [address] Micro? Indicated Invalid Interpretation Code [facility] Comment on above: Performed By: #### 5 [id number] ####[facility] (DEFAULT)[address] [place] [address] 17702 UA Bilirubin Negative Normal [facility] Comment on above: Performed By: #### 5 [id number], [id number], [id number] ####[facility] (DEFAULT)[address] [place] [address] 95708 UA Blood TRACE Abnormal NEGATIVE [facility] Comment on above: Performed By: #### 5 [id number], [id number], [id number] ####[facility] (DEFAULT)[address] [place] [address] 97764 UA Clarity CLOUDY Abnormal CLEAR [facility] Comment on above: Performed By: #### 5 [id number], [id number], [id number] ####[facility] (DEFAULT)[address] [place] [address] 76123 UA Leuk Est Negative Normal NEGATIVE [facility] Comment on above: Performed By: #### 5 [id number], [id number], [id number] ####[facility] (DEFAULT)[address] [place] [address] 98488 UA Nitrite Negative Normal [facility] Comment on above: Performed By: #### 5 [id number], [id number], [id number] ####[facility] (DEFAULT)[address] [place] [address] 51532 UA pH 6.0 Invalid Interpretation Code 5-8 [facility] Comment on above: Performed By: #### 5 [id number], [id number], [id number] ####[facility] (DEFAULT)[address] [place] [address] 48698 UA Protein Negative Normal [facility] Comment on above: Performed By: #### 5 [id number], [id number], [id number] ####[facility] (DEFAULT)[address] [place] [address] 04102 UA Spec Grav 1.025 Invalid Interpretation Code 1.001-1.[address] [place] [address] Comment on above: Performed By: #### 5 [id number], [id number], [id number] ####[facility] (DEFAULT)[address] [place] [address] UA Urobilinogen 0.2 mg/dL Normal 0.2-1.0 [facility] Comment on above: Performed By: #### 5 [id number], [id number], [id number] ####[facility] (DEFAULT)[address] [place] [address]98 Urine Source Clean Catch Normal [facility] Comment on above: Performed By: #### 5 [id number], [id number] ####[facility] (DEFAULT)[address] [place] [address] 40959 Urine, color YELLOW Invalid Interpretation Code [facility] Comment on above: Performed By: #### 5 [id number], [id number], [id number] ####[facility] (DEFAULT)[address] [place] [address] 61442 Urine, glucose Negative Invalid Interpretation Code [facility] Comment on above: Performed By: #### 5 [id number], [id number] ####[facility] (DEFAULT)[address] [place] [address] 32137 Urine, ketones presence 40 Invalid Interpretation Code [facility] Comment on above: Performed By: #### 5 [id number], [id number], [id number] ####[facility] (DEFAULT)[address] [place] [address]249 Vital Signs Date Time Vital Sign Value Performing Clinician Facility 10-29-2024 16:16-0400 Body mass index (BMI) [Ratio] 25.88 kg/m2 IRI DO Work Phone: [facility] 10-29-2024 16:16-040 Body weight 68.4 kg IRI DO Work Phone: [facility] 10-29-2024 16:16-0400 Diastolic blood pressure 74 mm[Hg] inmoblyo DO Work Phone: [facility] 10-29-2024 16:16-0400 Systolic blood pressure 104 mm[Hg] Curry You DO Work Phone: [facility] 07-28-2024 08:44-0500 Body mass index (BMI) [Ratio] 25.23 kg/m2 Curry You DO Work Phone: [facility] 07-28-2024 08:44-0500 Body weight 66.68 kg Curry You DO Work Phone: [facility] 07-28-2024 08:44-0500 Diastolic blood pressure 70 mm[Hg] Curry You DO Work Phone: [facility] 07-28-2024 08:44-0500 Systolic blood pressure 110 mm[Hg] Curry You DO Work Phone: [facility] 06-24-2024 14:55-0500 Body mass index (BMI) [Ratio] 24.51 kg/m2 Curry You DO Work Phone: [facility] 06-24-2024 14:55-0500 Body weight 64.77 kg Curry You DO Work Phone: [facility] 06-24-2024 14:55-0500 Diastolic blood pressure 70 mm[Hg] Curry You DO Work Phone: [facility] 06-24-2024 14:55-0500 Systolic blood pressure 110 mm[Hg] Curry You DO Work Phone: [facility] 05-21-2024 16:24-0400 Body height 162.6 cm Vikki DREW Work Phone: [facility] 05-21-2024 16:24-0400 Body mass index (BMI) [Ratio] 24.03 kg/m2 Vikki DREW Work Phone: [facility] 05-21-2024 16:24-0400 Body weight 63.5 kg Vikki DREW Work Phone: [facility] 05-21-2024 16:24-0400 Diastolic blood pressure 64 mm[Hg] Vikki DREW Work Phone: [facility] 05-21-2024 16:24-0400 Systolic blood pressure 98 mm[Hg] Vikki Michelle PA Work Phone: [facility] 08-29-2023 09:29-0500 Body mass index (BMI) [Ratio] 23.69 kg/m2 Vikki Michelle PA Work Phone: [facility] 08-29-2023 09:29-0500 Body weight 62.6 kg Vikki Michelle PA Work Phone: [facility] 08-29-2023 09:29-0500 Diastolic blood pressure 68 mm[Hg] Vikki Michelle PA Work Phone: [facility] 08-29-2023 09:29-0500 Systolic blood pressure 110 mm[Hg] Vikki Michelle PA Work Phone: [facility] 03-28-2023 09:00-0400 Body height 162.56 cm Simba Durbin Other [facility] Other 03-28-2023 09:00-0400 Body mass index (BMI) [Ratio] 27.01 kg/m2 Simba Durbin Other [facility] Other 03-28-2023 09:00-0400 Body weight 71.4 kg Simba Durbin Other [facility] Other 03-28-2023 09:00-0400 Diastolic blood pressure 72 mm[Hg] Simba Durbin Other [facility] Other 03-28-2023 09:00-0400 Systolic blood pressure 117 mm[Hg] Simba Durbin Other [facility] Other 02-05-2023 10:04-0400 Diastolic blood pressure 69 mm[Hg] Janeen Rowan Jr., DO Work Phone: [facility] 02-05-2023 10:04-0400 Heart rate 87 /min Janeen Rowan Jr., DO Work Phone: [facility] 02-05-2023 10:04-0400 Respiratory rate 16 /min Janeen Rowan Jr., DO Work Phone: [facility] 02-05-2023 10:04-0400 SaO2% (BldA) [Mass fraction] 99 % Janeen Rowan Jr., DO Work Phone: [facility] 02-05-2023 10:04-0400 Systolic blood pressure 122 mm[Hg] Janeen Rowan Jr., DO Work Phone: [facility] 02-05-2023 09:33-0400 Body temperature 97.81 [degF] Janeen Rowan Jr., DO Work Phone: [facility] 12-22-2022 08:27-0400 Body height 162.6 cm Janeen Rowan Jr., DO Work Phone: [facility] 12-22-2022 08:27-0400 Body weight 77.11 kg Janeen Rowan Jr., DO Work Phone: [facility] 12-22-2022 08:27-0400 Diastolic blood pressure 59 mm[Hg] Janeen Rowan Jr., DO Work Phone: [facility] 12-22-2022 08:27-0400 Heart rate 62 /min Janeen Rowan Jr., DO Work Phone: [facility] 12-22-2022 08:27-0400 SaO2% (BldA) [Mass fraction] 99 % Janeen Rowan Jr., DO Work Phone: [facility] 12-22-2022 08:27-0400 Systolic blood pressure 90 mm[Hg] Janeen Rowan Jr., DO Work Phone: [facility] 08-15-2022 11:30-0500 Body height 162.56 cm Simba Durbin Other [facility] Other 08-15-2022 11:30-0500 Body mass index (BMI) [Ratio] 30.72 kg/m2 Simba Durbin Other [facility] Other 08-15-2022 11:30-0500 Body weight 81.19 kg Simba Durbin Other [facility] Other 08-15-2022 11:30-0500 Diastolic blood pressure 64 mm[Hg] Simba Durbin Other [facility] Other 08-15-2022 11:30-0500 SaO2% (BldA) [Mass fraction] 99 % Simba Durbin Other [facility] Other 08-15-2022 11:30-0500 Systolic blood pressure 108 mm[Hg] Simba Durbin Other [facility] Other Encounters Encounter Date Encounter Type Care Provider Facility Start: 10-29-2024 End: 10-29-2024 Patient encounter procedure Curry You DO Work Phone: [facility] Work Phone: Start: 10-29-2024 End: 10-29-2024 Periodic preventive med est patient 18-39 yrs Curry You DO Work Phone: [facility] Comment on above: Well woman exam with routine gynecological exam; Labial cyst; Labial pain Start: 10-29-2024 End: 10-29-2024 Bamboo flowsheet Curry Yuo DO Work Phone: [facility] Start: 10-29-2024 End: 10-29-2024 Bamboo flowsheet Curry You DO Work Phone: [facility] Start: 07-28-2024 End: 07-28-2024 Bamboo flowsheet Curry You DO Work Phone: [facility] Start: 07-28-2024 End: 07-28-2024 Bamboo flowsheet Curry You DO Work Phone: [facility] Start: 07-28-2024 End: 07-28-2024 ambulatory CURRY YOU Not Available Start: 07-28-2024 End: 07-28-2024 Postop follow up visit related to original px Curry You DO Work Phone: [facility] Comment on above: Postoperative examin ation; Bartholin's gland cyst Start: 06-27-2024 End: 06-27-2024 ambulatory Simba Durbin Facility:[facility] Start: 06-27-2024 End: 06-27-2024 Clinisync Result Encounter Curry You DO Work Phone: [facility] Unsolicited Start: 06-27-2024 End: 06-27-2024 Clinisync Result Encounter Curry You DO Work Phone: [facility] Unsolicited Start: 06-24-2024 End: 06-24-2024 Office outpatient visit 15 minutes Curry You DO Work Phone: [facility] Comment on above: Labial cyst; Vulvar cyst Start: 06-24-2024 End: 06-24-2024 ambulatory CURRY YOU Not Available Start: 06-24-2024 End: 06-24-2024 Bamboo flowsheet Curry You DO Work Phone: [facility] Start: 06-24-2024 End: 06-24-2024 Bamboo flowsheet Curry You DO Work Phone: [facility] Start: 05-21-2024 End: 05-21-2024 Patient encounter procedure Vikki DREW Work Phone: [facility] Comment on above: Labial pain; Labial cyst Start: 05-21-2024 End: 05-21-2024 ambulatory VIKKI NUNO Not Available Start: 05-21-2024 End: 05-21-2024 Bamboo flowsheet Vikki DREW Work Phone: [facility] Start: 05-21-2024 End: 05-21-2024 Bamboo flowsheet Vikki DREW Work Phone: [facility] Start: 12-27-2023 End: 12-27-2023 ambulatory CURRY ORTA Not Available Start: 08-29-2023 End: 08-29-2023 ambulatory VIKKI NUNO Not Available Start: 08-29-2023 End: 08-29-2023 Office outpatient visit 15 minutes Vikki DREW Work Phone: [facility] Comment on above: Folliculitis Start: 03-28-2023 End: 03-28-2023 ambulatory Simba Durbin Other [facility] Other Start: 03-28-2023 Office outpatient vi sit 15 minutes Simba Durbin [facility] Start: 03-28-2023 Telephone encounter Simba Durbin [facility] [employer] Start: 02-05-2023 End: 02-05-2023 ambulatory ELLE FALCON Facility:[facility] Start: 02-05-2023 End: 02-05-2023 Subsequent hospital visit by physician Janeen Rowan DO Work Phone: Ambulatory Surgery Comment on above: Dyspepsia and disord er of function of stomach [K31.9, R10.13] Start: 02-02-2023 ambulatory Karin rehman RN NURSE PROTOTYPE ENGINEER Comment on above: Information Start: 01-10-2023 End: 01-10-2023 ambulatory Simba Durbin Other [facility] Other Start: 01-10-2023 Telephone encounter Simba Durbin [facility] Start: 12-22-2022 End: 12-22-2022 ambulatory JANEEN ROWAN JR Facility:[facility] Start: 12-22-2022 End: 12-22-2022 Patient encounter procedure Janeen Rowan DO Work Phone: Gastgroenterology Comment on above: Gastroesophageal ref lux disease, unspecified whether esophagitis present (Primary Dx); Irritable bowel syndrome with diarrhea; Dyspepsia and disorder of function of stomach; Generalized abdominal pain Start: 12-19-2022 End: 12-20-[address] SIMBA DURBIN Facility:[facility] Start: 11-09-2022 End: 11-10-2022 ambulatory Nadir NARAYANAN Facility:[facility] Start: 11-09-2022 End: 11-09-2022 Patient encounter procedure Nadir NARAYANAN [facility] Start: 11-06-2022 ambulatory [facility] Radha [facility] Start: 10-02-2022 End: 10-02-2022 ambulatory Simba Durbin Other [facility] Other Start: 10-02-2022 Telephone encounter Simba Durbin [facility] Start: 08-24-2022 End: 08-25-[address] SIMBA DURBIN Facility:[facility] Start: 08-24-2022 End: 08-24-[address] YARELIS OWUSU . Facility:[facility] Start: 08-15-2022 End: 08-15-2022 ambulatory Simba Durbin Other [facility] Other Start: 08-15-2022 Office outpatient vi sit 15 minutes Simba Durbin [facility] Start: 03-28-2022 End: 03-29-[address] SIMBA DURBIN Facility: Start: 01-18-2022 End: 01-19-2022 ambulatory Mahad Garcia Facility:[facility] Start: 01-18-2022 End: 01-18-2022 Lab Drop off Mahad Garcia [facility] Start: 01-03-2022 End: 01-03-[address] SIMBA DURBIN Facility:[facility] Start: 12-31-[address] SIMBA DURBIN Facil ity:[facility] Start: 03-12-2017 End: 10-24-2017 Ambulatory Yoan Cisneros Facility:[facility] Start: 03-11-2017 End: 10-24-2017 Emergency department patient visit Simba Durbin Facility:[facility] Procedures Date Procedure Procedure Detail Performing Clinician Start: 06-27-2024 ALL CBC WITH AUTO DIFF Curry You DO Work Phone: Start: 02-05-2023 Colonoscopy flx dx w/collj spec when pfrmd Janeen Rowan DO Work Phone: Start: 02-05-2023 Level iv surg pathology gross&microscopic exam Janeen Rowan DO Work Phone: Start: 02-05-2023 Esophagogastroduodenoscopy transoral diagnostic Janeen Rowan DO Work Phone: Start: 01-30-2023 Cytp cerv/vag auto thin layer prep mnl screen Curry You DO Work Phone: Contraception care education Simbagus Durbin Other Structure of wisdom tooth (body structure) Mahad Garcia Plan of Treatment Date Care Activity Detail Author Start: 10-29-2024 End: 10-29-2024 Patient encounter procedure [facility] Comment on above: Arrived Start: 06-24-2024 End: 06-24-2024 Patient encounter procedure 06/24/2024 2:20 PM EST Office Visit [facility] [address] [place] [address] Curry Orta, DO [address] [place], [place] [id number] Arrived [facility] Comment on above: Arrived Start: 06-04-2024 End: 06-04-2024 Patient encounter procedure 06/04/2024 8:30 AM EST Office Visit [facility] [address] [place] [address] Vikki Nuno PA [address] [place], [place] [id number] [facility] Start: 05-21-2024 End: 05-21-2024 Patient encounter procedure 05/21/2024 4:00 PM EDT Office Visit [facility] [address] [address] Vikki Nuno PA [address] [place] [address] Arrived [facility] Comment on above: Arrived Start: 03-23-2023 Influenza vaccination [facility] Start: 07-23-2022 DEPRESSION ASSESSMENT DEPRESSION ASS ESSMENT [facility] Start: 12-06-2020 PAP TESTING PAP TESTING [facility] Start: 12-06-2018 Urine microalbumin profile DTAP,TDAP,TD (1 - Tdap) [facility] Start: 12-06-2017 CHLAMYDIA SCREENING (18-24) CHLAMYDIA SCREENING (18-24) [facility] Start: 12-06-2017 GC (GONORRHEA) SCREENING (18-24) GC (GONORRHEA) SCREENING (18-24) [facility] Start: 12-06-2017 HEPATITIS C SCREENING HEPATITIS C SC REENING [facility] Start: 12-06-2017 HIV SCREENING HIV SCREENING [facility] Start: 2015 MENINGOCOCCAL B: Consider based on risk (1 of 2 - Patient Seeks Protection) MENINGOCOCCAL B: Consider based on risk (1 of 2 - Patient Seeks Protection) [facility] Start: 12-06-2013 PEDS TO ADULT TRANSITION ANNUAL ASSESSMENT PEDS TO ADULT TRANSITION ANNUAL ASSESSMENT [facility] Start: 2011 PEDS TO ADULT TRANSITION INITIAL DISCUSSION PEDS TO ADULT TRANSITION INITIAL DISCUSSION [facility] Start: 12-06-2009 MENINGOCOCCAL B: Consider based on risk (1 of 2 - Risk Bexsero 2-dose series) MENINGOCOCCAL B: Consider based on risk (1 of 2 - Risk Bexsero 2-dose series) [facility] Start: 12-06-2008 HPV VACCINE (1 - 2-d ose series) HPV VACCINE (1 - 2-dose series) [facility] Start: 06-08-2000 COVID-19 VACCINE (#1) COVID-19 VACCI NE (#1) [facility] Start: 1999 HEPATITIS B (1 of 3 - 3-dose series) HEPATITIS B (1 of 3 - 3-dose series) [facility] Aerobic culture Aerobic culture Microbiology Routine Labial pain Labial cyst Ordered: 05/21/2024 [facility] [employer] Comment on above: Ordered: 05/21/2024 Anaerobic culture Anaerobic cult ure Microbiology Routine Labial pain Labial cyst Ordered: 05/21/2024 [facility] [employer] Work Phone: Comment on above: Ordered: 05/21/2024 End: 12-23-2023 COLONOSCOPY DIAGNOSTIC COLONOSCOPY DIAGNOSTIC Endoscopy Routine Irritable bowel syndrome with diarrhea Generalized abdominal pain 1 Occurrences starting 12/22/2022 until 12/23/2023 [facility] Work Phone: Comment on above: 1 Occurrences starti ng 12/22/2022 until 12/23/2023 Cytology Cervical or vaginal smear or scraping study Pap Smear Pathology and Cytology Routine Well woman exam with routine gynecological exam Ordered: 10/29/2024 [facility] [employer] Work Phone: Comment on above: Ordered: 10/29/2024 End: 12-23-2023 EGD DIAGNOSTIC EGD DIAGNOSTIC Endoscopy Routine Dyspepsia and disorder of function of stomach Gastroesophageal reflux disease, unspecified whether esophagitis present 1 Occurrences starting 12/22/2022 until 12/23/2023 [facility] Work Phone: Comment on above: 1 Occurrences starti ng 12/22/2022 until 12/23/2023 [facility] Immunizations Immunization Date Immunization Notes Care Provider [facility] 06-11-2012 HPV, unspecified formulation Schmitz SALAM [facility] 06-11-2012 influenza virus vacc ine, unspecified formulation Schmitz SALAM [facility] 04-11-2012 hepatitis A vaccine, unspecified formulation Schmitz SALAM [facility] 04-11-2012 hepatitis B vaccine, pediatric or pediatric/adolescent dosage Schmitz SALAM [facility] 04-11-2012 influenza virus vacc ine, unspecified formulation Schmitz SALAM [facility] 04-11-2012 meningococcal ACWY vaccine, unspecified formulation Schmitz SALAM [facility] 04-11-2012 tetanus toxoid, redu doroteo diphtheria toxoid, and acellular pertussis vaccine, adsorbed Schmitz SALAM [facility] 04-11-2012 varicella virus vaccine Mahe r SALAM [facility] 03-23-2004 DTaP, unspecified formulation Schmitz SALAM [facility] 03-23-2004 measles, mumps and rubella virus vaccine Schmitz SALAM [facility] 03-23-2004 poliovirus vaccine, unspecified formulation Schmitz SALAM [facility] 03-23-2004 varicella virus vaccine Mahe r SALAM [facility] 12-25-2001 DTaP, unspecified formulation Schmitz SALAM [facility] 12-25-2001 Hib, unspecified formulation Schmitz SALAM [facility] 12-25-2001 measles, mumps and rubella virus vaccine Schmitz SALAM [facility] 06-22-2000 DTaP, unspecified formulation Schmitz SALAM [facility] 06-22-2000 poliovirus vaccine, unspecified formulation Schmitz SALAM [facility] 04-11-2000 DTaP, unspecified formulation Schmitz SALAM [facility] 04-11-2000 poliovirus vaccine, unspecified formulation Schmitz SALAM [facility] 02-10-2000 DTaP, unspecified formulation Schmitz SALAM [facility] 02-10-2000 poliovirus vaccine, unspecified formulation Nadir NARAYANAN [facility] Payers Date Payer Category Payer Private Health Insurance [id number] 2024 Self-pay 2023 Private Health Insurance [id number] 2022 Private Health Insurance 2019 Medicaid [employer] [employer] [place] [id number] 2019-Present [phone] [address] [address] [place] [address] Medicaid [id number] 2017 Unknown 1999 Unknown [id number] [id number]. 727 1999 Unknown [id number] 2.16.840.1.190681.3.579.2. 727 1999 Unknown [id number] 2.16.840.1.787011.3.579.2. 727 1999 Unknown [id number] 2.16.840.1.082464.3.579.2. 593 1999 Unknown [id number] 2.16.840.1.201213.3.579.2. 593 1999 Unknown [id number] 2.16.840.1.542519.3.579.2. 593 1999 Unknown [id number] 2.16.840.1.112115.3.579.2. 593 1999 Unknown [id number] 2.16.840.1.132252.3.579.2. 593 1999 Unknown [id number] 2.16.840.1.583678.3.579.2. 593 1999 Unknown [id number] 2.16.840.1.108611.3.579.2. 593 1999 Unknown [id number] 2.16.840.1.714236.3.579.2. 9 1999 Unknown [id number] 2.16.840.1.591178.3.579.2. 9 1999 Unknown [id number] 2.16.840.1.041803.3.579.2. 9 1999 Unknown [id number] 2.16.840.1.377370.3.579.2. 9 1999 Unknown [id number] 2.16.840.1.180311.3.579.2. 1259 1960 [employer] [place] [facility] [id number] [id number] 1960 Medicaid [id number] [id number] 1959 Unknown [id number] Social History Date Type Detail Facility Start: 03-21-2019 End: 12-11-2022 Tobacco smoking status Never smoked tobacco (finding) [facility] Tobacco smoking status Never [facility] Start: 12-22-2022 End: 12-27-[address] Female [facility] Tobacco smoking status [facility] Tobacco smoking consumption unknown [facility] Start: 1999 Sex Assigned At Not on file [facility] Start: 12-22-2022 End: 12-27-2023 History of Social function [facility] Start: 12-11-2022 Tobacco use and exposure Smokeless tobacco non-user [facility] Start: 08-29-2023 End: 10-29-2024 Alcohol intake Ex-drinker (finding) [facility] Start: 12-11-2022 Alcohol Comment caffeine:1-2 c ups per day [facility] Clinical Notes 01-03-2022 to 10-29-2024 Jasmyne Melton LPN - 10/29/2024 4:00 PM Deny Orta DO - 07/28/2024 8:30 AM Uli Melton LPN - 06/24/2024 2:20 PM VIKI Willett - 05/21/2024 4:00 PM VIKI Tran - 08/29/2023 9:20 AM EST Note Date & Type Note Facility 10-29-2024 History of Presen t illness Narrative Reason for Appointment: Patient ID: Delfin Pérez is a 23 y.o. female who presents for Well Women Visit Patient presents today for Annual Exam. MEDICATIONS No current outpatient medications ALLERGIES Allergies Allergen Reactions Pollen Extract PROBLEMS Active Ambulatory Problems Diagnosis Date Noted PCOS (polycystic ovarian syndrome) 12/15/2022 Postoperative examination 07/28/2024 Bartholin's gland cyst 07/28/2024 Resolved Ambulatory Problems Diagnosis Date Noted No Resolved Ambulatory Problems Past Medical History: Diagnosis Date Abnormal Pap smear of cervix July 2018 Bipolar 2 disorder (CMS/HCC) COVID-05/2021 History of being hospitalized 2019 Multiple food allergies Sinusitis Tonsil stone HISTORY PAST MEDICAL HISTORY SOCIAL HISTORY Past Medical History: Diagnosis Date Abnormal Pap smear of cervix July 2018 Bipolar 2 disorder (CMS/HCC) COVID-05/2021 History of being hospitalized 2019 Stomach issues Multiple food allergies Sinusitis Tonsil stone Social History Tobacco Use Smoking status: Never Smokeless tobacco: Never Substance Use Topics Alcohol use: Not Currently Alcohol/week: 1.0 - 2.0 standard drink of alcohol Types: 1 - 2 Standard drinks or equivalent per week Comment: caffeine:1-2 cups per day Drug use: Yes Frequency: 2.0 times per week Types: Marijuana FAMILY HISTORY No family history on file. SURGICAL HISTORY Past Surgical History: Procedure Laterality Date TONSILLECTOMY 01/03/2022 WISDOM TOOTH EXTRACTION 10/2018 REVIEW OF SYSTEMS Review of Systems: Review of Systems Constitutional: Negative. HENT: Negative. Eyes: Negative. Respiratory: Negative. Cardiovascular: Negative. Gastrointestinal: Negative. Genitourinary: Negative. Musculoskeletal: Negative. Skin: Negative. Neurological: Negative. All other systems reviewed and are negative. Hematological: Negative. Endocrine: Negative. Allergic/Immunologic: Negative. OBJECTIVE Objective: Physical Exam Constitutional: Appearance: Normal appearance. She is well-developed. Genitourinary: Vulva normal. Breasts: Breasts are soft. Right: Normal. Left: Normal. Cardiovascular: Rate and Rhythm: Normal rate and regular rhythm. Pulmonary: Effort: Pulmonary effort is normal. Breath sounds: Normal breath sounds. Abdominal: General: Bowel sounds are normal. There is no distension. Palpations: Abdomen is soft. Tenderness: There is no abdominal tenderness. There is no guarding or rebound. Musculoskeletal: General: No swelling. Normal range of motion. Right lower leg: No edema. Left lower leg: No edema. Neurological: Mental Status: She is alert and oriented to person, place, and time. Skin: General: Skin is warm and dry. Psychiatric: Mood and Affect: Mood normal. Behavior: Behavior normal. Vitals and nursing note reviewed. Exam conducted with a room attendants present. Vitals: Estimated body mass index is 25.88 kg/m as calculated from the following: Height as of 05/21/24: 5' 4 . Weight as of this encounter: 150 lb 12.8 oz. BP: 104/74 No LMP recorded. ASSESSMENT & PLAN ICD-10-CM 1. Well woman exam with routine gynecological exam Z01.419 2. Labial cyst N90.7 3. Labial pain N94.89 Annual Exam: Patient presents today for an annual exam. Patient states she is doing well and has complaints of labial pain and swelling- Pt had surgery in June for removal of labial cyst, cyst has since returned and tunneled back, pt being referred to Dr Byrne for evaluation, pt voiced understanding. Pap was obtained without difficulty. No orders of the defined types were placed in this encounter. Follow Up: Patient is to return in one year for annual unless needed otherwise. Documented by Jasmyne Melton LPN on behalf of: Curry Orta DO documented in this encounter [facility] 07-28-2024 History of Presen t illness Narrative Reason for Appointment: Patient ID: Delfin Pérez is a 23 y.o. female who presents for Post-op Visit Patient presents today for 1 Week Post Op Follow Up appointment. MEDICATIONS No current outpatient medications ALLERGIES Allergies Allergen Reactions Other Oral allergy food syndrome Other Reaction(s): lips swell, throat itchy Pollen Extract PROBLEMS Active Ambulatory Problems Diagnosis Date Noted PCOS (polycystic ovarian syndrome) 12/15/2022 Resolved Ambulatory Problems Diagnosis Date Noted No Resolved Ambulatory Problems Past Medical History: Diagnosis Date Abnormal Pap smear of cervix July 2018 Bipolar 2 disorder (CMS/HCC) COVID-19 05/2021 History of being hospitalized 2019 Multiple food allergies Sinusitis Tonsil stone HISTORY PAST MEDICAL HISTORY SOCIAL HISTORY Past Medical History: Diagnosis Date Abnormal Pap smear of cervix July 2018 Bipolar 2 disorder ([facility]) COVID-19 05/2021 History of being hospitalized 2019 Stomach issues Multiple food allergies Sinusitis Tonsil stone Social History Tobacco Use Smoking status: Never Smokeless tobacco: Never Substance Use Topics Alcohol use: Not Currently Alcohol/week: 1.0 - 2.0 standard drink of alcohol Types: 1 - 2 Standard drinks or equivalent per week Comment: caffeine:1-2 cups per day Drug use: Yes Frequency: 2.0 times per week Types: Marijuana FAMILY HISTORY No family history on file. SURGICAL HISTORY Past Surgical History: Procedure Laterality Date TONSILLECTOMY 01/03/2022 WISDOM TOOTH EXTRACTION 10/2018 REVIEW OF SYSTEMS Review of Systems: Review of Systems All other systems reviewed and are negative. OBJECTIVE Objective: Physical Exam Constitutional: Appearance: Normal appearance. She is well-developed. Genitourinary: Vulva normal. Cardiovascular: Rate and Rhythm: Normal rate and regular rhythm. Pulmonary: Effort: Pulmonary effort is normal. Breath sounds: Normal breath sounds. Abdominal: General: Bowel sounds are normal. There is no distension. Palpations: Abdomen is soft. Tenderness: There is no abdominal tenderness. There is no guarding or rebound. Musculoskeletal: General: No swelling. Normal range of motion. Right lower leg: No edema. Left lower leg: No edema. Neurological: Mental Status: She is alert and oriented to person, place, and time. Skin: General: Skin is warm and dry. Psychiatric: Mood and Affect: Mood normal. Behavior: Behavior normal. Vitals and nursing note reviewed. Exam conducted with a room attendants present. Vitals: Estimated body mass index is 25.23 kg/m as calculated from the following: Height as of 24: 5' 4 . Weight as of this encounter: 147 lb. BP: 110/70 Patient's last menstrual period was 07/23/2024. ASSESSMENT & PLAN ICD-10-CM 1. Postoperative examination Z09 Patient presents for I&D of cyst on labia. Pelvic exam performed and healing well. Patient has resumed intercourse with only slight discomfort. Patient advised to return to clinic in 3-4 months for annual exam as her last PAP was 2022. Advised patient that she is able to apply hydrocortisone cream to area PRN. Documented by Lizette Burns LPN on behalf of: Curry Orta DO documented in this encounter [facility] 06-24-2024 History of Presen t illness Narrative Reason for Appointment: Patient ID: Delfin Pérez is a 23 y.o. female who presents for mucous cyst and Recurrent Skin Infections Patient presents today for Acute Visit. MEDICATIONS No current outpatient medications ALLERGIES Allergies Allergen Reactions Other Oral allergy food syndrome Other Reaction(s): lips swell, throat itchy Pollen Extract PROBLEMS Active Ambulatory Problems Diagnosis Date Noted PCOS (polycystic ovarian syndrome) 12/15/2022 Resolved Ambulatory Problems Diagnosis Date Noted No Resolved Ambulatory Problems Past Medical History: Diagnosis Date Abnormal Pap smear of cervix July 2018 Bipolar 2 disorder ([facility]) COVID-19 05/2021 History of being hospitalized 2019 Multiple food allergies Sinusitis Tonsil stone HISTORY PAST MEDICAL HISTORY SOCIAL HISTORY Past Medical History: Diagnosis Date Abnormal Pap smear of cervix July 2018 Bipolar 2 disorder (CMS/HCC) COVID-19 05/2021 History of being hospitalized 2019 Stomach issues Multiple food allergies Sinusitis Tonsil stone Social History Tobacco Use Smoking status: Never Smokeless tobacco: Never Substance Use Topics Alcohol use: Not Currently Alcohol/week: 1.0 - 2.0 standard drink of alcohol Types: 1 - 2 Standard drinks or equivalent per week Comment: caffeine:1-2 cups per day Drug use: Yes Frequency: 2.0 times per week Types: Marijuana FAMILY HISTORY No family history on file. SURGICAL HISTORY Past Surgical History: Procedure Laterality Date TONSILLECTOMY 01/03/2022 WISDOM TOOTH EXTRACTION 10/2018 REVIEW OF SYSTEMS Review of Systems: Review of Systems Constitutional: Negative. HENT: Negative. Eyes: Negative. Respiratory: Negative. Cardiovascular: Negative. Gastrointestinal: Negative. Genitourinary: Positive for vaginal pain. Musculoskeletal: Negative. Skin: Negative. Neurological: Negative. All other systems reviewed and are negative. Hematological: Negative. Endocrine: Negative. Allergic/Immunologic: Negative. OBJECTIVE Objective: Physical Exam Constitutional: Appearance: Normal appearance. She is well-developed. Genitourinary: Vulva normal. Genitourinary Comments: Left labial cyst Left Labia: skin changes. Cardiovascular: Rate and Rhythm: Normal rate and regular rhythm. Pulmonary: Effort: Pulmonary effort is normal. Breath sounds: Normal breath sounds. Abdominal: General: Bowel sounds are normal. There is no distension. Palpations: Abdomen is soft. Tenderness: There is no abdominal tenderness. There is no guarding or rebound. Musculoskeletal: General: No swelling. Normal range of motion. Right lower leg: No edema. Left lower leg: No edema. Neurological: Mental Status: She is alert and oriented to person, place, and time. Skin: General: Skin is warm and dry. Psychiatric: Mood and Affect: Mood normal. Behavior: Behavior normal. Vitals and nursing note reviewed. Exam conducted with a room attendants present. Vitals: Estimated body mass index is 24.51 kg/m as calculated from the following: Height as of 05/21/24: 5' 4 . Weight as of this encounter: 142 lb 12.8 oz. BP: 110/70 Patient's last menstrual period was 06/20/2024. ASSESSMENT & PLAN ICD-10-CM 1. Labial cyst N90.7 2. Vulvar cyst N90.7 Patient presents today with complaints of a labial cyst on left side. Patient desires to be taken to surgery for cyst removal. I have discussed conservative management vs. surgical management with the patient in detail and patient desires surgical management at this time. Patient will undergo Incision and Drainage of Vulvar Cyst on 06/27/2024. Surgical consents were signed, mmc was reviewed, and patient is to proceed to [facility] OR. Follow Up: Patient is to follow up between 1-2 weeks post operative to assess proper healing and recovery from procedure. Documented by Jasmyne Melton LPN on behalf of: Curry Orta DO documented in this encounter [facility] 05-21-2024 History of Presen t illness Narrative Images from the original note were not included. Reason for Appointment: Patient ID: Delfin Pérez is a 23 y.o. female who presents for swelling in labia Patient presents today for swelling in left labia. MEDICATIONS No current outpatient medications ALLERGIES Allergies Allergen Reactions Other Oral allergy food syndrome Other Reaction(s): lips swell, throat itchy Pollen Extract PROBLEMS Active Ambulatory Problems Diagnosis Date Noted PCOS (polycystic ovarian syndrome) 12/15/2022 Resolved Ambulatory Problems Diagnosis Date Noted No Resolved Ambulatory Problems Past Medical History: Diagnosis Date Abnormal Pap smear of cervix July 2018 Bipolar 2 disorder (CMS/HCC) COVID-19 05/2021 History of being hospitalized 2019 Multiple food allergies Sinusitis Tonsil stone HISTORY PAST MEDICAL HISTORY SOCIAL HISTORY Past Medical History: Diagnosis Date Abnormal Pap smear of cervix July 2018 Bipolar 2 disorder (CMS/HCC) COVID-19 05/2021 History of being hospitalized 2019 Stomach issues Multiple food allergies Sinusitis Tonsil stone Social History Tobacco Use Smoking status: Never Smokeless tobacco: Never Substance Use Topics Alcohol use: Not Currently Alcohol/week: 1.0 - 2.0 standard drink of alcohol Types: 1 - 2 Standard drinks or equivalent per week Comment: caffeine:1-2 cups per day Drug use: Yes Frequency: 2.0 times per week Types: Marijuana FAMILY HISTORY No family history on file. SURGICAL HISTORY Past Surgical History: Procedure Laterality Date TONSILLECTOMY 01/03/2022 WISDOM TOOTH EXTRACTION 10/2018 REVIEW OF SYSTEMS Review of Systems: Review of Systems Constitutional: Negative. HENT: Negative. Eyes: Negative. Respiratory: Negative. Cardiovascular: Negative. Gastrointestinal: Negative. Genitourinary: Negative. Musculoskeletal: Negative. Skin: Negative. Neurological: Negative. All other systems reviewed and are negative. Hematological: Negative. Endocrine: Negative. Allergic/Immunologic: Negative. OBJECTIVE Objective: Physical Exam Constitutional: Appearance: Normal appearance. She is normal weight. Genitourinary: HENT: Head: Normocephalic. Cardiovascular: Rate and Rhythm: Normal rate. Pulses: Normal pulses. Pulmonary: Effort: Pulmonary effort is normal. Breath sounds: Normal breath sounds. Abdominal: Palpations: Abdomen is soft. Musculoskeletal: General: Normal range of motion. Neurological: General: No focal deficit present. Mental Status: She is alert and oriented to person, place, and time. Psychiatric: Mood and Affect: Mood normal. Behavior: Behavior normal. Thought Content: Thought content normal. Judgment: Judgment normal. Vitals and nursing note reviewed. Vitals: Estimated body mass index is 24.03 kg/m as calculated from the following: Height as of this encounter: 5' 4 . Weight as of this encounter: 140 lb. BP: 98/64 No LMP recorded. ASSESSMENT & PLAN No diagnosis found. Patient presents for acute on chronic left labial swelling. I and D performed in December of this year of similar episode. Returned after intercourse. States was swollen now smaller in size. I and d performed to the left labia. Cleaned with bedaine Area prep and draped in sterile fashion. Small incision with 11 blade post injection of 1% lidocaine x 3cc. Copious amount of mucous like substance extracted and expressed from area. Area packed with 1/4 iodoform. Tolerated well. Pt will remove packing in 48 hours. Pt to return for follow up in several weeks. Documented by Karin Hollins on behalf of: VIKI Rene documented in this encounter [facility] 08-29-2023 History of Presen t illness Narrative Reason for Appointment: Patient ID: Delfin Pérez is a 22 y.o. female who presents for vaginal cyst Patient presents today for Acute Visit appointment. Pt presents for exacerbation of swelling to left labia. States occurred 12 days ago post intercourse, tender initially, now not tender. Denies drainage or discharge. Pt seen for this previously post snow mobile trip which caused similar presentation. Previous CT scan showed labia cyst, bartholin, chronic appearing Current Medications: has a current medication list which includes the following prescription(s): cephalexin. Medical History: Active Ambulatory Problems Diagnosis Date Noted PCOS (polycystic ovarian syndrome) 12/15/2022 Resolved Ambulatory Problems Diagnosis Date Noted No Resolved Ambulatory Problems Past Medical History: Diagnosis Date Bipolar 2 disorder ([facility]) COVID-19 05/2021 History of being hospitalized 2019 Multiple food allergies Sinusitis Tonsil stone No family history on file. Social History Tobacco Use Smoking status: Never Smokeless tobacco: Never Substance Use Topics Alcohol use: Not Currently Alcohol/week: 1.0 - 2.0 standard drink of alcohol Types: 1 - 2 Standard drinks or equivalent per week Comment: caffeine:1-2 cups per day Drug use: Not on file Past Surgical History: Procedure Laterality Date TONSILLECTOMY 01/03/2022 WISDOM TOOTH EXTRACTION 10/2018 Allergies Allergen Reactions Other Multiple food allergies Other Reaction(s): lips swell, throat itchy Review of Systems: Review of Systems Constitutional: Negative. HENT: Negative. Eyes: Negative. Respiratory: Negative. Cardiovascular: Negative. Gastrointestinal: Negative. Genitourinary: Negative. Musculoskeletal: Negative. Skin: Negative. Neurological: Negative. All other systems reviewed and are negative. Hematological: Negative. Endocrine: Negative. Allergic/Immunologic: Negative. Objective Physical Exam Constitutional: Appearance: Normal appearance. She is normal weight. Genitourinary: Vulva exam comments: Left labial swelling consistent with hematoma, no abscess, non tender at this time. HENT: Head: Normocephalic. Cardiovascular: Rate and Rhythm: Normal rate. Pulses: Normal pulses. Pulmonary: Effort: Pulmonary effort is normal. Breath sounds: Normal breath sounds. Abdominal: Palpations: Abdomen is soft. Musculoskeletal: General: Normal range of motion. Neurological: General: No focal deficit present. Mental Status: She is alert and oriented to person, place, and time. Psychiatric: Mood and Affect: Mood normal. Behavior: Behavior normal. Thought Content: Thought content normal. Judgment: Judgment normal. Vitals and nursing note reviewed. Vitals: Estimated body mass index is 23.69 kg/m as calculated from the following: Height as of 01/30/23: 5' 4 . Weight as of this encounter: 138 lb. BP: 110/68 No LMP recorded. Assessment/Plan Encounter Diagnosis Name Primary? Folliculitis Pt presents today with recurrence of left labial swelling post intercourse. No Incision and drainage needed today. Pt will be placed on keflex prophylactically and then encouraged to use prior to or immediately post intercourse. Pt will follow up via telehealth Documented by VIKI Rene on behalf of: VIKI Rene documented in this encounter [facility] 03-28-2023 Evaluation note Encounter Date Diagnosis Assessment Notes Mar, Anxiety disorder, unspecified (ICD-10 - F41.9) Pt declines medications and requests appt w counselor. Mar, Depression, unspecified (ICD-10 - F32.A) Mar, Irritable bowel syndrome with both constipation and diarrhea (ICD-10 - K58.2) Pt has been seen at several GI offices and declines medications. She is considering buying probiotics. Will monitor results. [facility] Other 07-17-2023 History of Past illness Narrative* Problem Noted Date Diagnosed Date Resolved Date Diarrhea 02/05/2023 02/05/2023 Generalized abdominal pain 02/05/2023 0 02/05/2023 documented as of this encounter (statuses as of 03/03/2023) [facility] Nurse Note* Lilliana Luke RN - 02/05/2023 9:52 AM EDT POST OP LEARNING RESPONSE INSTRUCTION PROVIDED TO: Patient and Mother METHOD OF INSTRUCTION: Written instruction - handouts Verbal instruction PATIENT / FAMILY RESPONSE: Verbalizes understanding of: INFECTION MANAGEMENT- Signs and symptoms of an infection and importance of contacting the physician POST-PROCEDURE INSTRUCTIONS-Correct actions to take to reduce post procedure complications WORSENING CONDITION-Signs and symptoms of a worsening condition that warrant a call to the physician FOLLOW-UP PLAN: Patient instructed to call with any further issues SUPPLEMENTAL MATERIAL: Post sedation instructions given Procedure discharge instructions REFERRAL (RECOMMENDATION): None Electronically Signed By: Lilliana Luke RN In Department: AMBULATORY SURGERY [facility] History and physical note * Janeen Rowan Jr., - 02/05/2023 9:15 AM EDT HISTORY AND PHYSICAL EXAMINATION SERVICE DATE: 02/05/2023 SERVICE TIME: 9:02 AM Chief Complaint: GERD, nausea, diarrhea, abd pain HPI:This is a 22 year old female who presents with diarrhea, GERD and bloating. Symptoms for the past 2 yrs. Diarrhea is typically several times in the morning. Reports diarrhea floats, occasionally oily appearance. Denies blood and mucous. Diarrhea does not tend to awaken her from sleep. Abd bloating and generalized abd cramping associated. She also has intermittent GERD and occasional vomiting episodes. She has not tried any specific medications. Never had an EGD or colonoscopy before. Negative family history. Celiac serology and allergy testing were negative. PAST MEDICAL HISTORY Diagnosis Date Anxiety Bipolar 2 disorder (HCC) GERD (gastroesophageal reflux disease) History of PCOS PAST SURGICAL HISTORY Procedure Laterality Date TONSILLECTOMY HX No family history on file. (Not in a hospital admission) ALLERGIES No Known Allergies COMPLETE REVIEW OF SYSTEMS: GENERAL: No weight loss, malaise or fevers RESPIRATORY: Negative for cough, hemoptysis, wheezing, COPD, dyspnea or shortness of breath CARDIOVASCULAR: Negative for chest pain, leg swelling, hypertension, CHF or palpitations GI: Positive for abdominal discomfort , diarrhea , nausea BP 120/61 Pulse 98 Temp 98.6 Resp 16 SpO2 99% LMP 02/04/2023 O2 Therapy: Room Air PHYSICAL EXAM: Physical Exam Performed: GENERAL: Alert, no distress, cooperative LUNGS: Lungs clear to auscultation, Good diaphragmatic excursion CARDIAC: Normal S1 and S2; no rubs, murmurs, or gallops ABDOMEN: Abdomen soft, non-tender, BS normal, No masses or organomegaly EXTREMITIES: Extremities normal, no deformities, edema, clubbing or skin discoloration. Good capillary refill., No ulcers (K31.9, R10.13) Dyspepsia and disorder of function of stomach Plan: EGD DIAGNOSTIC, EGD DIAGNOSTIC (K21.9) Gastroesophageal reflux disease, unspecified whether esophagitis present Plan: EGD DIAGNOSTIC, EGD DIAGNOSTIC (K58.0) Irritable bowel syndrome with diarrhea Plan: COLONOSCOPY DIAGNOSTIC, COLONOSCOPY DIAGNOSTIC (R10.84) Generalized abdominal pain Plan: COLONOSCOPY DIAGNOSTIC, COLONOSCOPY DIAGNOSTIC (R19.7) Diarrhea, unspecified type SIGNATURE: Janeen Rowan Jr., DO PATIENT NAME: Delfin Pérez DATE: February 05, 2023 TIME: 9:02 AM PAGER/CONTACT #: [facility] Miscellaneous Notes* Telephone Encounter - Karin Rogel RN - 02/02/2023 5:29 PM EDT Patient calling regarding her appointment time for her colonoscopy on Sunday. Patient denies any new or worsening symptoms that a provider is unaware of. Yes. Advised patient on appointment and arrival time per [facility]. documented in [facility]23 NoteHNO ID: [id number] Author: Janeen Rowan Jr., DO Service: ? Author Type: Physician Type: Progress Notes Filed: 12/22/2022 8:55 AM Note Text: Patient presents with: Bloating Diarrhea HPI: Delfin Pérez, 22 year old female, presents in the office today for diarrhea, GERD and bloating. Symptoms for the past 2 yrs. Diarrhea is typically several times in the morning. Reports diarrhea floats, occasionally oily appearance. Denies blood and mucous. Diarrhea does not tend to awaken her from sleep. Abd bloating and generalized abd cramping associated. She also has intermittent GERD and occasional vomiting episodes. She has not tried any specific medications. Never had an EGD or colonoscopy before. Negative family history. Celiac serology and allergy testing were negative. Past GI workup 08-24-2022 CT ABD/PELVIS WO CON was done for UNSPECIFIED ABDOMINAL PAIN , hematochezia 2.7 cm hypodensity lower third of the left vagina/labia majora. I favor a Bartholin gland cyst, clinically correlate No CT explanation for the patient's hematochezia Last labs as follows: Component Ref Range AND Units 2 d ago [facility] WBC 4.0 - 11.0 103/ul 7.2 [facility] RBC 4.20 - 5.40 106/ul 4.90 [facility] HGB 12.0 - 16.0 g/dl 14.4 TB[facility] HCT 36.0 - 48.0 % 42.2 [facility] MCV 81.0 - 99.0 fL 86.1 TB[facility] MCH 26.7 - 34.0 pg 29.4 [facility] MCHC 29.9 - 35.2 g/dl 34.1 [facility] RDW 11.0 - 15.0 % 12.0 [facility] PLT 150 - 450 103/ul 262 [facility] MPV 9.5 - 13.5 fL 8.6 Low Panic TBH NEUT % 43.0 - 75.0 % 54.4 TBH LYMPH % 20.5 - 60.0 % 33.2 TBH MONO % 1.7 - 12.0 % 8.5 TBH EO % 0.9 - 7.0 % 2.8 TBH BASO % 0.2 - 2.0 % 0.7 TBH IG % 0.0 - 0.5 % 0.4 TBH NEUT # 1.4 - 6.5 103/ul 3.9 TBH LYMPH # 1.2 - 3.8 103/ul 2.4 TBH MONO # 0.3 - 0.8 103/ul 0.6 TBH EO # 0.0 - 0.7 103/ul 0.2 TBH BASO # 0.0 - 0.1 103/ul 0.1 TBH IG # 0.00 - 0.03 10e3/ul 0.03 CELIAC ANTIBODIES PROFILE on 08-25-2022 Deamidated Gliadin Abs, IgA 4 units Normal 0-19 [facility] Comment on above: Result Comment: Negative 0 - 19 Weak Positive 20 - 30 Moderate to Strong Positive >30 Deamidated Gliadin Abs, IgG 3 units Endomysial Antibody IgA Negative Immunoglobulin A, Qn, Serum 79 mg/dL t-Transglutaminase (tTG) IgA <2 t-Transglutaminase (tTG) IgG <2 BILIRUBIN CONJUGATED (DIRECT) on 08-24-2022 BILI, CONJUGATED 0.2 mg/dL PAST MEDICAL HISTORY Diagnosis Date Anxiety Bipolar 2 disorder (HCC) GERD (gastroesophageal reflux disease) History of PCOS PAST SURGICAL HISTORY Procedure Laterality Date TONSILLECTOMY HX No current outpatient medications on file prior to visit. No current facility-administered medications on file prior to visit. Allergies: No Known Allergies Review of Systems Constitutional: Negative for chills, fatigue and fever. HENT: Negative for hearing loss, nosebleeds, tinnitus and trouble swallowing. Eyes: Negative for visual disturbance. Respiratory: Negative for cough, shortness of breath and wheezing. Cardiovascular: Negative for chest pain and palpitations. Gastrointestinal: Positive for abdominal pain, diarrhea, nausea and vomiting. Negative for abdominal distention, blood in stool and constipation. Endocrine: Negative for polyphagia. Genitourinary: Negative for dysuria, frequency and hematuria. Musculoskeletal: Negative for arthralgias and joint swelling. Skin: Negative for pallor and rash. Neurological: Negative for dizziness, tremors, seizures, syncope and headaches. Hematological: Does not bruise/bleed easily. BP 90/59 Pulse 62 Ht 162.6 cm (5' 4 ) Wt 77.1 kg (170 lb) LMP 12/08/2022 SpO2 99% BMI 29.18 kg/m? Physical Exam Constitutional: General: She is not in acute distress. HENT: Mouth/Throat: Pharynx: Oropharynx is clear. Eyes: Conjunctiva/sclera: Conjunctivae normal. Cardiovascular: Rate and Rhythm: Normal rate and regular rhythm. Pulmonary: Effort: Pulmonary effort is normal. Breath sounds: Normal breath sounds. Abdominal: General: Bowel sounds are normal. There is no distension. Palpations: Abdomen is soft. Tenderness: There is no abdominal tenderness. There is no guarding or rebound. Hernia: No hernia is present. Musculoskeletal: General: No swelling. Skin: General: Skin is warm and dry. Coloration: Skin is not jaundiced. Neurological: Mental Status: She is alert. Mental status is at baseline. ASSESSMENT/PLAN: 22 y/o female with N/V, indigestion, diarrhea, and abd pain. Symptoms most likely related to GERD and IBS. However, description of symptoms also suggest possibility of exocrine pancreatic insufficiency and less likely colitis. She is reluctant to start medications at this time. Will proceed with EGD and colonoscopy for continued investigation. Consider PPI, antispasmodic therapy, and/or digestive enzymes. Followup in 3 months. 1. Gastroesophageal reflux disease, unspecified whether esophagitis present - ICD9: 530.81, (more content not included)...[facility] 12-22-2022 Instructions* Patient Instructions* Janeen Rowan Jr., DO - 12/22/2022 8:43 AM EDT Images from the original note were not included. Bowel Preparation Instructions for: Miralax-Gatorade Preparations IF YOU DO NOT FOLLOW THESE DIRECTIONS, YOUR COLONOSCOPY WILL BE CANCELLED. [place] Instructions: Your bowel must be empty so that your doctor can clearly view your colon. Follow all of the instructions in this handout EXACTLY as they are written. Do NOT eat any solid food the ENTIRE day before your colonoscopy. Buy your bowel preparation at least 5 days before your colonoscopy. Four (4) Dulcolax laxative tablets containing 5mg of bisacodyl each (NOT Dulcolax stool softener) One (1) 8.3oz. bottle Miralax (238 grams) or generic equivalent 2 x 32oz. Bottles of Gatorade (NOT RED) Diabetic Patients: Use G2 (Gatorade 2) TRANSPORTATION on the Day of Your Exam A responsible adult MUST be present with you at Check In prior to your colonoscopy and REMAIN in the endoscopy area until you are discharged. You are NOT ALLOWED to drive, take a taxi or bus, or leave the Endoscopy Center ALONE. If you do not have a responsible electric screw driver operator (family member or friend) withyou to take you home, your exam cannot be done with sedation and will be cancelled. Please bring a list of all of your current medications, including any Ovgj-wfl-Ihbjvzw medications with you. Medications If you take insulin, diabetic medications or blood thinners such as Coumadin (warfarin), Plavix (clopidogrel), Ticlid (ticlopidine hydrochloride), Agrylin (anagrelide), Xarelto (Rivaroxaban), Pradaxa(Dabigatran), Eliquis (Apixaban), and Effient (Prasugrel). You MUST call the doctors who orders those medicines for instructions on altering the dosage before your colonoscopy. All other medications should be taken the day of the exam with a sip of water including ASPIRIN. Five (5) Days Before Your Colonoscopy Do NOT take medicines that stop diarrhea - such as Imodium, Kaopectate, or Pepto Bismol. Do NOT take fiber supplements - such as Metamucil, Citrucel, or Perdiem. Do NOT take products that contain iron - such as multi-vitamins (the label lists what is in the products). Three (3) Days Before Your Colonoscopy Do NOT eat high-fiber foods - such as popcorn, beans, seeds (flax, sunflower, quinoa), multigrain bread, nuts, salad/vegetables, or fresh and dried fruit. 1 Bowel Preparation Instructions for: Miralax-Gatorade Preparations One (1) Day Before Your Colonoscopy Only drink clear liquids the ENTIRE DAY before your colonoscopy. Do NOT eat any solid foods. Drink at least 8 ounces of clear liquids every hour after waking up. The clear liquids you can drink include: Clear Liquid (NO RED LIQUIDS) DO NOT DRINK Gatorade, Pedialyte or Powerade Clear broth or bouillon Coffee or tea (no milk or non-dairy creamer) Carbonated and non-carbonated soft drinks Frank-Aid or other fruit flavored drinks Strained fruit juices (no pulp) Jell-O, popsicles, hard candy Water Alcohol Milk or non-dairy creamers Noodles or vegetables in soup Juice with pulp Liquid you cannot see through Do not use tobacco/vaping products Mix 1/2 of Miralax bottle (119 grams) in each 32 ounces of Gatorade bottle until dissolved. Keep cool in the refrigerator. DO NOT ADD ICE. The bowel preparation solution will be consumed in two parts. Part 1 5:00 PM - Evening before your colonoscopy Take 4 Dulcolax tablets. 6 PM - Evening before your colonoscopy Drink 32 oz. of the mixed solution. Drink an 8 oz. glass of bowel preparation every 15 minutes for a total of 4 glasses. Fifteen (15) minutes later, drink an 8 oz. glass of of clear liquids every 15 minutes for a total of 2 glasses. You may continue to drink clear liquids till midnight. Part 2 On the day of your colonoscopy you may drink clear liquids up to (three) 3 hours prior to procedure. 4 1/2 hours before your colonoscopy Take another 32 oz. bottle of mixed solution. Drink an 8 oz. glass of bowel prep every 15 minutes for a total of 4 glasses. Fifteen (15) minutes later, drink an 8 oz. glass of clear liquids every 15 minutes for a total of 2glasses. You may continue to drink clear liquids up to (three) 3 hours before your exam. 2 06/2019 [facility] History of Present illness Narrative* Janeen Rowan Jr., DO - 12/22/2022 8:30 AM EDT Patient presents with: Bloating Diarrhea HPI: Delfin Pérez, 22 year old female, presents in the office today for diarrhea, GERD and bloating. Symptoms for the past 2 yrs. Diarrhea is typically several times in the morning. Reports diarrhea floats, occasionally oily appearance. Denies blood and mucous. Diarrhea does not tend to awaken her from sleep. Abd bloating and generalized abd cramping associated. She also has intermittent GERD and occasional vomiting episodes. She has not tried any specific medications. Never had an EGD or colonoscopy before. Negative family history. Celiac serology and allergy testing were negative. Past GI workup 08-24-2022 CT ABD/PELVIS WO CON was done for UNSPECIFIED ABDOMINAL PAIN , hematochezia 2.7 cm hypodensity lower third of the left vagina/labia majora. I favor a Bartholin gland cyst, clinically correlate No CT explanation for the patient's hematochezia Last labs as follows: Component Ref Range & Units 2 d ago [facility] WBC 4.0 - 11.0 103/ul 7.2 TB[facility] RBC 4.20 - 5.40 106/ul 4.90 [facility] HGB 12.0 - 16.0 g/dl 14.4 TB[facility] HCT 36.0 - 48.0 % 42.2 TB[facility] MCV 81.0 - 99.0 fL 86.1 TBH MCH 26.7 - 34.0 pg 29.4 TB[facility] MCHC 29.9 - 35.2 g/dl 34.1 TBH RDW 11.0 - 15.0 % 12.0 TBH PLT 150 - 450 103/ul 262 TBH MPV 9.5 - 13.5 fL 8.6 Low Panic TBH NEUT % 43.0 - 75.0 % 54.4 TBH LYMPH % 20.5 - 60.0 % 33.2 TBH MONO % 1.7 - 12.0 % 8.5 TBH EO % 0.9 - 7.0 % 2.8 TBH BASO % 0.2 - 2.0 % 0.7 TBH IG % 0.0 - 0.5 % 0.4 TBH NEUT # 1.4 - 6.5 103/ul 3.9 TBH LYMPH # 1.2 - 3.8 103/ul 2.4 TBH MONO # 0.3 - 0.8 103/ul 0.6 TBH EO # 0.0 - 0.7 103/ul 0.2 TBH BASO # 0.0 - 0.1 103/ul 0.1 TBH IG # 0.00 - 0.03 10e3/ul 0.03 CELIAC ANTIBODIES PROFILE on 08-25-2022 Deamidated Gliadin Abs, IgA 4 units Normal 0-19 [facility] Comment on above: Result Comment: Negative 0 - 19 Weak Positive 20 - 30 Moderate to Strong Positive >30 Deamidated Gliadin Abs, IgG 3 units Endomysial Antibody IgA Negative Immunoglobulin A, Qn, Serum 79 mg/dL t-Transglutaminase (tTG) IgA <2 t-Transglutaminase (tTG) IgG <2 BILIRUBIN CONJUGATED (DIRECT) on 08-24-2022 BILI, CONJUGATED 0.2 mg/dL PAST MEDICAL HISTORY Diagnosis Date Anxiety Bipolar 2 disorder (HCC) GERD (gastroesophageal reflux disease) History of PCOS PAST SURGICAL HISTORY Procedure Laterality Date TONSILLECTOMY HX No current outpatient medications on file prior to visit. No current facility-administered medications on file prior to visit. Allergies: No Known Allergies Review of Systems Constitutional: Negative for chills, fatigue and fever. HENT: Negative for hearing loss, nosebleeds, tinnitus and trouble swallowing. Eyes: Negative for visual disturbance. Respiratory: Negative for cough, shortness of breath and wheezing. Cardiovascular: Negative for chest pain and palpitations. Gastrointestinal: Positive for abdominal pain, diarrhea, nausea and vomiting. Negative for abdominal distention, blood in stool and constipation. Endocrine: Negative for polyphagia. Genitourinary: Negative for dysuria, frequency and hematuria. Musculoskeletal: Negative for arthralgias and joint swelling. Skin: Negative for pallor and rash. Neurological: Negative for dizziness, tremors, seizures, syncope and headaches. Hematological: Does not bruise/bleed easily. BP 90/59 Pulse 62 Ht 162.6 cm (5' 4 ) Wt 77.1 kg (170 lb) LMP 12/08/2022 SpO2 99% BMI 29.18 kg/m Physical Exam Constitutional: General: She is not in acute distress. HENT: Mouth/Throat: Pharynx: Oropharynx is clear. Eyes: Conjunctiva/sclera: Conjunctivae normal. Cardiovascular: Rate and Rhythm: Normal rate and regular rhythm. Pulmonary: Effort: Pulmonary effort is normal. Breath sounds: Normal breath sounds. Abdominal: General: Bowel sounds are normal. There is no distension. Palpations: Abdomen is soft. Tenderness: There is no abdominal tenderness. There is no guarding or rebound. Hernia: No hernia is present. Musculoskeletal: General: No swelling. Skin: General: Skin is warm and dry. Coloration: Skin is not jaundiced. Neurological: Mental Status: She is alert. Mental status is at baseline. ASSESSMENT/PLAN: 22 y/o female with N/V, indigestion, diarrhea, and abd pain. Symptoms most likely related to GERD and IBS. However, description of symptoms also suggest possibility of exocrine pancreatic insufficiency and less likely colitis. She is reluctant to start medications at this time. Will proceed with EGD and colonoscopy for continued investigation. Consider PPI, antispasmodic therapy, and/or digestiveenzymes. Followup in 3 months. 1. Gastroesophageal reflux disease, unspecified whether esophagitis present - ICD9: 530.81, ICD10: K21.9 (primary diagnosis) - EGD DIAGNOSTIC 2. Irritable bowel syndrome with diarrhea - ICD9: 564.1, ICD10: K58.0 - COLONOSCOPY DIAGNOSTIC 3. Dyspepsia and disorder of function of stomach - ICD9: 536.8, ICD10: K31.9, R10.13 - EGD DIAGNOSTIC 4. Generalized abdominal pain - ICD9: 789.07, ICD10: R10.84 - COLONOSCOPY DIAGNOSTIC Janeen Rowan Jr. [facility] Evaluation note* Encounter Date Diagnosis Assessment Notes Treatment Notes Treatment Clinical Notes Sep, Abdominal pain, unspecified abdominal location (ICD-10 - R10.9) [facility] Other 01-24-2023 Evaluation note* Encounter Date Diagnosis Assessment Notes Treatment Notes Treatment Clinical Notes Jul, Gastroesophageal ref lux disease without esophagitis (ICD-10 - K21.9) Jul, Functional diarrhea (ICD-10 - K59.1) Reviewed labs that were completed in March 2022. Jul, Anxiety (ICD-10 - F41.9) Discussed brain gut axis. Discussed stress management. Reviewed medications. Continue present prescription. Jul, BMI 30.0-30.9,adult (ICD-10 - Z68.30) diet & exercise reviewed with patient [facility] Other 06-14-2022 NoteOPERATIVE NOTE OPERATION DATE: 01/03/2022 PRIMARY CARE PHYSICIAN: Simba Durbin M.D. SURGEON: Evelyn Carballo M.D. PREOPERATIVE DIAGNOSIS: Chronic tonsillitis and tonsil stones. POSTOPERATIVE DIAGNOSIS: Chronic tonsillitis and tonsil stones. PROCEDURE: Tonsillectomy. ANESTHESIA: General endotracheal. COMPLICATIONS: None. FINDINGS: 2+ tonsils with tonsilloliths. INDICATIONS: This 21-year-old woman presented with chronic tonsil stones, unresponsive to conservative management. PROCEDURE: Patient identified in the holding area and taken back to the OR where she was placed in the supine position. After induction of general endotracheal anesthesia, the table was turned, a shoulder roll placed and the McIvor mouth gag inserted with care taken to avoid injury to the lips, teeth and tongue. Attention was first turned to the right tonsil and the tonsil was dissected from the fossa using electrocautery. Hemostasis was achieved with suction Bovie. Attention was then turned to the left tonsil and the same procedure performed. Once tonsillar hemostasis had been achieved and verified, the oral cavity was irrigated and 1 cc of 0.25% Marcaine was injected into each tonsillar pillar with care taken to avoid intravascular injection. 2 cc of Tisseel was then placed in each tonsillar fossa and spatula used to coat the entire fossa. The patient was then awakened and taken to the recovery room in good condition. [facility] Signed and Approved by: DR EVELYN CARBALLO 01/10/2022 08:09:00[facility] No data available for this section [facility] Gastroesophageal reflux disease, unspecified whether esophagitis present- Primary Irritable bowel syndrome with diarrhea Irritable bowel syndrome Dyspepsia and disorder of function of stomach Dyspepsia and other specified disorders of function of stomach Generalized abdominal pain Abdominal pain, generalized documented in this encounter [facility] noteNo [facility] Other Evaluation note* Diagnosis Dyspepsia and disorder of function of stomach Dyspepsia and other specified disorders of function of stomach Gastroesophageal reflux disease, unspecified whether esophagitis present Irritable bowel syndrome with diarrhea Irritable bowel syndrome Generalized abdominal pain Abdominal pain, generalized Diarrhea, unspecified type Diarrhea Generalized abdominal pain Abdominal pain, generalized documented in this encounter [facility] note* Diagnosis Folliculitis Other specified disease of hair and hair follicles [facility] Labial pain Unspecified symptom associated with female genital organs Labial cyst Other specified noninflammatory disorder of vulva and perineum [facility] Diagnosis Labial cyst Other specified noninflammatory disorder of vulva and perineum Vulvar cyst Other specified noninflammatory disorder of vulva and perineum [facility] Postoperative examination Follow-up examination, following unspecified surgery Bartholin's gland cyst Cyst of Bartholin's gland [facility] Diagnosis Well woman exam with routine gynecological exam Routine gynecological examination Labial cyst Other specified noninflammatory disorder of vulva and perineum Labial pain Unspecified symptom associated with female genital organs [facility] Narrative - Reported* Type Description Date Medical History Bipolar 2 disorder, major depres sive episode Medical History Tobacco use Medical History BMI 28.0-28.9,adult Medical History LGSIL of cervix of undetermined significance Medical History Tonsil stone Medical History Amenorrhea Medical History Multiple food allergies Medical History Contraceptive education Medical History Sinusitis Medical History PCOS (polycystic ovarian syndrom e) Medical History Skin lesion of left lower extrem ity Medical History Seasonal allergic rhinitis Medical History Dysmenorrhea Medical History Contact dermatitis Surgical History PHREESIA 04/2021 Surgical History Tonsillectomy 12/2021 Hospitalization History SEE SURGICAL [facility] Other History general Narrative - Reported* Type Description Date Medical History Bipolar 2 disorder, major depres sive episode Medical History Tobacco use Medical History BMI 28.0-28.9,adult Medical History LGSIL of cervix of undetermined significance Medical History Tonsil stone Medical History Amenorrhea Medical History Multiple food allergies Medical History Contraceptive education Medical History Sinusitis Medical History PCOS (polycystic ovarian syndrom e) Medical History Skin lesion of left lower extrem ity Medical History Seasonal allergic rhinitis Medical History Dysmenorrhea Medical History Contact dermatitis Surgical History PHREESIA 04/2021 Surgical History Tonsillectomy 12/2021 Surgical History COLONOSCOPY 2022 Surgical History EGD 2022 Hospitalization History SEE SURGICAL HX [facility] Other Hospital Discharge instructions No data available for this section [facility] data available for this section [facility] Outpatient Procedure (Routine) - Authorized Specialty Diagnoses / Procedures Referred By Sisi martinez Referred To Contact [facility] Diagnoses Irritable bowel syndrome with diarrhea Generalized abdominal pain Diarrhea, unspecified type Procedures COLONOSCOPY DIAGNOSTIC COLONOSCOPY FLX DX W/COLLJ SPEC WHEN PFRMD Janeen Rowan Jr., DO [address] [place] [address] [address] Referral ID Status Reason Start Date Expiration Date Visits Requested Visits Authorized [id number] Authorized Auto-Generat ed Referral 12/22/2022 12/23/2023 1 1 * Outpatient Procedure (Routine) - Authorized Specialty Diagnoses / Procedures [facility] Diagnoses Dyspepsia and disorder of function of stomach Gastroesophageal reflux disease, unspecified whether esophagitis present Procedures EGD DIAGNOSTIC ESOPHAGOGASTRODUODENOSC OPY TRANSORAL DIAGNOSTIC Janeen Rowan Jr., DO [address] [place] [address] [place] [id number] Referral ID Status Reason Start Date Expiration Date Visits Requested Visits Authorized [id number] Authorized Auto-Generat ed Referral 12/22/2022 12/23/2023 1 1 [facility] for referral (narrative)* Outpatient Procedure (Routine) - Closed Specialty Diagnoses / Procedures [facility] Diagnoses Irritable bowel syndrome with diarrhea Generalized abdominal pain Diarrhea, unspecified type Procedures COLONOSCOPY DIAGNOSTIC COLONOSCOPY FLX DX W/COLLJ SPEC WHEN PFRMD Janeen Rowan Jr., DO [address] [place] [address] [address] Referral ID Status Reason Start Date Expiration Date V isits Requested Visits Authorized [id number] Closed Auto-Generate d Referral 12/22/2022 12/23/2023 1 1 * Outpatient Procedure (Routine) - Closed Specialty Diagnoses / Procedures [facility] Diagnoses Dyspepsia and disorder of function of stomach Gastroesophageal reflux disease, unspecified whether esophagitis present Procedures EGD DIAGNOSTIC ESOPHAGOGASTRODUODENOSC OPY TRANSORAL DIAGNOSTIC Janeen Rowan Jr., DO [address] [place] [address] [facility] Disease [place] [address] [place] [address] Referral ID Status Reason Start Date Expiration Date V isits Requested Visits Authorized [id number] Closed Auto-Generate d Referral 12/22/2022 12/23/2023 1 1 [facility] for referral (narrative)* Reason CLOSED Counseling at [facility]. Anxiety and depression, requests a younger, female counselor. Diagnosis 1 Anxiety disorder, un specified (F41.9) Referral Organization [facility] Referring Provider First Name Simba Referring Provider Last Name Gifty Referring Provider Specialty Family [facility] Referred Organization [facility] Referred Address ,[place], [place],[address] Referred Provider Specialty Michelle s Referral Priority Routine General Notes Bere Jaime 11:26:42 AM >per [facility], they are not accepting outside referrals. Spoke with pt and she is going to see if Dr. Orta will send the referral over since he is now with [facility], and see if she can be scheduled. if not she will contact your office back and we will send out a referral elsewhere. Thank You [facility] Other Reason for visit Narrative* Outpatient Procedure (Routine) - Closed Specialty Diagnoses / Procedures Referred By Sisi martinez Referred To Contact [facility] Diagnoses Irritable bowel syndrome with diarrhea Generalized abdominal pain Diarrhea, unspecified type Procedures COLONOSCOPY DIAGNOSTIC COLONOSCOPY FLX DX W/COLLJ SPEC WHEN PFRMD Janeen Rowan Jr., DO [address] [place] [address] [facility] [place] [address] [place] [address] Referral ID Status Reason Start Date Expiration Date V isits Requested Visits Authorized [id number] Closed Auto-Generate d Referral 12/22/2022 12/23/2023 1 1 [facility] Summary Purpose Family History No Family History Records FoundNo Family History Records FoundNo Family History Records FoundNo Family History Records FoundNo Family History Records FoundNo Family History Records Found Advance Directives No Advanced Directives Records FoundNo Advanced Directives Records FoundNo Advanced Directives Records FoundNo Advanced Directives Records FoundNo Advanced Directives Records FoundNo Advanced Directives Records Found Reason for Referral Reason *FU 10/18 Last OV note, today's telephone note. Thank you Diagnosis 1 Abdominal pain, unsp ecified abdominal location (R10.9) Referral Organization [facility] Referring Provider First Name Simba Referring Provider Last Name Gifty Referring Provider Specialty Family [facility]ine Referred Organization [facility] Referred Provider Janeen Rowan Ref[place] Address [address] [place],[address] Referred Provider Specialty Gastroentero logy Referral Priority Routine General Notes Bere Jaime 04:49:06 PM >received today, attachments made, form filled out, notes locked and referral faxed to [facility] Bere Jaime 10/11/2022 11:12:02 AM >FAXED FIRST ATTEMPT LETTER Clinical Notes [id number] Medications Administered Section Inactive Administered Medications - up to 3 most recent administrations Medication Order MAR Action Action Date Dose Rate Site NaCl 0.9% iv infusion 50 mL/hr, INTRAVENOUS, CONTINUOUS, Starting on Sun02/05/23 at 0830, Until Sun02/05/23 at 1023, Preprocedure New Bag/Syringe/Bottle 02/05/2023 8:37 AM EDT 50 mL/hr 50 mL/hr Additional Source Comments INFORMATION SOURCE (unrecogn ized section and content) DATE [facility] DATE CREATED AUTHOR AUTHOR'S ORGANIZ ATION 11/10/2022 [facility] DATE CREATED AUTHOR AUTHOR'S ORGANIZ ATION 12/30/2022 [facility] DATE CREATED AUTHOR AUTHOR'S ORGANIZ ATION 02/07/2023 [facility] DATE CREATED AUTHOR AUTHOR'S ORGANIZ ATION 07/03/2024 [facility] DATE CREATED AUTHOR AUTHOR'S ORGANIZ ATION 08/03/2024 [facility] EPIC Care Team (unrecognized sect ion and content) Transfer Operator Relationship Specialty Start Date End Date Simba Durbin MD [address] [place] [facility] [place] [id number] PCP - General Family Medicine 02/05/23 Transfer Operator Relationship Specialty Start Date End Date Simba Durbin MD [address] [place] [facility] [phone] PCP - General Family Medicine 12/19/22 Transfer Operator Relationship Specialty Start Date End Date Simba Durbin MD [address] [place] [facility] [address] PCP - General Family Medicine 12/19/22 Transfer Operator Relationship Specialty Start Date End Date Simba Durbin MD [address] [place] [facility] [address] PCP - General Family Medicine 12/19/22 Transfer Operator Relationship Specialty Start Date End Date Simba Durbin MD [address] [place] [facility] [address] PCP - General Family Medicine 12/19/22 Transfer Operator Relationship Specialty Start Date End Date Simba Durbin MD [address] [place] [facility] [phone] PCP - General Family Medicine 12/19/22 Transfer Operator Relationship Specialty Start Date End Date Simba Durbin MD [address] [place] [facility] [address] PCP - General Family Medicine 12/19/22 REASON FOR VISIT (unrecogniz ed section and content) Reason Comments Bloating Diarrhea Reason Comments Information Reason Comments vaginal cyst Reason Comments swelling in labia Reason Comments mucous cyst Recurrent Skin Infections Reason Comments Post-op Visit Reason Comments [facility] Visit Source Comments (unrecognize d section and content) In the event this informatio n is protected by the Federal Confidentiality of Alcohol and Drug Abuse Patient Records regulations: The Federal rules restrict any use of the information to criminally investigate or prosecute any alcohol or drug abuse patient.[facility] the event this information is protected by the Federal Confidentiality of Alcohol and Drug Abuse Patient Records regulations: The Federal rules restrict any use of the information to criminally investigate or prosecute any alcohol or drug abuse patient.[facility] System[facility] the event this information is protected by the Federal Confidentiality of Alcohol and Drug Abuse Patient Records regulations: The Federal rules restrict any use of the information to criminally investigate or prosecute any alcohol or drug abuse patient.[facility] FOR RECORDS PERTAINING TO PATIENTS WHO ARE OR HAVE BEEN ENROLLED IN A CHEMICAL DEPENDENCY/SUBSTANCEABUSE PROGRAM, SOME INFORMATION MAY BE OMITTED. This clinical summary was aggregated from multiple sources. Caution should be exercised in using it in the provision of clinical care. This summary normalizes information from multiple sources, and as a consequence, information in this document may materially change the coding, format and clinical context of patient data. In addition, data may be omitted in some cases. CLINICAL DECISIONS SHOULD BE BASED ON THE PRIMARY CLINICAL RECORDS. [facility] [employer] [facility]. provides no warranty or guarantee of the accuracy or completeness of information in this document.
== END 2024-10-29 21:16 | disposition home or self-care (01) ==
LOC: LAB 21:15
PROVIDERS: PCP Family Medicine; Visit Provider Obstetrics & Gynecology
DX: Z01.419 Encounter for gynecological examination (general) (routine) without abnormal findings (principal)
CPT/HCPCS: 88175